=== PATIENT | female | born 1995 | race Caucasian/White ===

== ENCOUNTER 2019-04-24 11:39 | Emergency (ER) | payer OTHER, SELFPAY ==
--- NOTE | 2019-04-24 11:44 | ED_ITS ---
I attest that this documentation has been prepared under the direction and in the presence of Jules Huerta MD. Brianna RamirezKaden 04/24/19;11:51 HPI - General Adult General Chief complaint: Arrhythmia/Palpitations Stated complaint: svt HR over 200 Time Seen by Provider: 04/24/19 11:44 History of Present Illness HPI narrative: A 23 y/o female presents to the ED with c/o high heart rate. Pt states that at 1000 today her heart rate was in the 200's. She notes that she has a PMHx of high heart rate, but has never had medication to fix the heart rate. The high heart rate usually occurs 3-4 times a month. Pt adds that she tried breathing into a bag and drank ice water with no relief. She reports CP that radiates into her lt arm and SOB. Her PCP is Dr. Burt and she does not have a dip tanker. She is not currently on any medications.
[2019-04-24 11:48] VITALS: BP 124/91; PULSE 210; RESP 20; TEMP 36.7; O2SAT 100
[2019-04-24 11:50] VITALS: BP 121/90; PULSE 108; RESP 20; TEMP 36.7; O2SAT 100
--- NOTE | 2019-04-24 11:51 | ECG_ITS ---
Measurements Intervals [place] Rate: 204 P: [place]: 0 QRS: 55 QRSD: 84 T: 10 QT: 210 QTc: 387 Interpretive Statements SUPRAVENTRICULAR TACHYCARDIA NONSPECIFIC ST & T-WAVE ABNORMALITY- DIFFUSE LEADS BASELINE WANDER- II, III, AVF ABNORMAL ECG Electronically Signed On 04-24-2019 13:33:10 DIRECTOR IMAGING by Jarrett Saab D.O.
--- NOTE | 2019-04-24 11:52 | ED.ARRPALP ---
HPI - Arrhythmia/Palpitations General Chief Complaint: Arrhythmia/Palpitations Stated Complaint: svt HR over 200 Time Seen by Provider: 04/24/19 11:44 Source: patient Mode of arrival: ambulatory Limitations: no limitations History of Present Illness HPI narrative: A 23 y/o female presents to the ED with c/o high heart rate. Pt states that at 1000 today her heart rate was in the 200's. She notes that she has a PMHx of SVT, but has never had medication to fix her high heart rate. The high heart rate usually occurs 3-4 times a month. Pt adds that she tried breathing into a bag and drank ice water with no relief. She reports CP that radiates into her lt arm and SOB. Her PCP is Dr. Burt and she does not have a sports administrator. She is not currently on any medications. complaint: rapid heart beat Onset (ago): hour(s) (1.5) Duration: constant Severity: similar to previous episodes Arrhythmia history: SVT Associated symptoms: chest pain (Radiates into lt arm) and shortness of breath Treatments prior to arrival: vagal maneuvers Related Data Home Medications Medication Instructions Recorded Confirmed aripiprazole mg 04/24/19 dextroamphetamine-amphetamine PO 04/24/19 [Adderall XR] insulin lispro [Humalog U-100 04/24/19 Insulin] vortioxetine [Trintellix] mg 04/24/19 Allergies Allergy/AdvReac Type Severity Reaction Status Date / Time No Known Allergies Allergy Verified 04/24/19 11:54 Review of Systems Review of Systems: All systems reviewed & are unremarkable except as noted in HPI and below Cardiovascular: Cardiovascular: Reports chest pain (Radiates into lt arm) and Reports palpitations Respiratory: Respiratory: Reports dyspnea PMFSH Past Medical History Medical History (Updated 04/24/19 @ 12:28 by Jules Huerta MD) SVT (supraventricular tachycardia) Surgical History Surgical History (Updated 04/24/19 @ 12:17 by Brianna Ramirez) No pertinent past surgical history Social History Social History (Updated 04/24/19 @ 12:18 by Brianna Ramirez) Smoking status: Former smoker Exam Const: General: healthy appearing and no acute distress Nutritional Appearance: well nourished HENMT: Mouth: Yes lip normal and Yes moist mucous membranes Eyes: Conjunctivae: conjunctivae normal Pupils: Equal, round and reactive pupils present Resp: Effort & Inspection: normal respiratory effort Auscultation: clear to auscultation bilaterally Cardio: Rate: tachycardic Rhythm: regular rhythm Heart sounds: no murmurs GI: GI Palp: Yes Soft to palpation and No Tenderness to palpation present (GI) Auscultation: normal bowel sounds Back/Spine/Pelvis: Back: other (Full ROM) Skin: General skin exam: normal color, dry skin and other (Warm) Neuro: General: patient oriented x3 (Alert) Speech: normal speech Extrem: General: full ROM Psych: Mental Status: mental status grossly normal Affect: normal affect Course Consultations Consultation #1: Discussed case with PCP, Dr. Burt. They states that if the patient calls their office tomorrow they can provide a sports administrator referral. They agree with starting the patient on low dose Metoprolol. Date: 04/24/19 Time: 12:01 Vital Signs Vital signs: Vital Signs Temperature 36.7 C 04/24/19 11:48 Pulse Rate 210 H 04/24/19 11:48 Respiratory Rate 04/24/19 11:48 Blood Pressure 124/91 H 04/24/19 11:48 Pulse Oximetry 100 04/24/19 11:48 Temperature 36.7 C 04/24/19 11:50 Pulse Rate 100 04/24/19 12:44 Respiratory Rate 04/24/19 11:50 Blood Pressure 121/90 04/24/19 11:50 Pulse Oximetry 100 04/24/19 11:50 Procedures Other Procedure Procedure 1: Other Procedure: Chemical cardioversion She was placed on the grill chef. 6 mg adenosine was pushed rapidly through a proximal IV and flushed She successfully converted to sinus rhythm, but continued to be tachycardic She was then given 5 mg IV metoprolol to help maintain sinus
[2019-04-24] MEDS: SODIUM CHLORIDE 0.9% IV 1,000 ML 999 ML IV CONT (11:57)
[2019-04-24 12:00] VITALS: PULSE 93
[2019-04-24] MEDS: METOPROLOL TARTRATE INJ 5 MG/5 ML VIAL 2.5 MG IV PUSH (12:00)
[2019-04-24] MEDS: ADENOSINE IV SOLN 6 MG/2 ML VIAL IV PUSH (12:00)
--- NOTE | 2019-04-24 12:00 | PC.NURSE ---
Report given to BILLY De La Rosa.
--- NOTE | 2019-04-24 12:00 | ECG_ITS ---
Measurements Intervals [place] Rate: 118 P: 70 MT: 151 QRS: 68 QRSD: 91 T: 35 QT: 272 QTc: 381 Interpretive Statements SINUS TACHYCARDIA ABNORMAL ECG Electronically Signed On 04-24-2019 13:33:26 AVIONICS ELECTRICAL ENGINEER by Jarrett Saab D.O.
--- NOTE | 2019-04-24 12:02 | PC.NURSE ---
EDP in room, VORB for 6mg adenosine rapid IVP. pt educated on process of treatment, verbalized understanding. medication administered. pt hr decreased from 208 bpm to 93 bpm. pt states pain is gone.
[2019-04-24 12:05] LABS: Basophils Percent Auto 0.4 % (0.2-1.2); Eosinophils Absolute Auto 0.1 K/mm3 (0-0.3); Eosinophils Percent Auto 1.2 % (0-4.4); Hematocrit 41.3 % (37.0-47.0); Hemoglobin 13.6 g/dL (12.0-15.0); Immature Granulocyte Absolute 0.02 K/mm3 (0.00-0.031); Immature Granulocyte Percent A 0.2 % (0-0.5); Lymphocytes Absolute Auto 2.51 K/mm3 (0.9-3.2); Lymphocytes Percent Auto 23.4 % (18.3-44.2); Mean Corpuscular HGB Conc 32.9 g/dl (32-36); Mean Corpuscular Hemoglobin 27.6 pg (26-34); Mean Corpuscular Volume 83.8 fl (80-100); Mean Platelet Volume 10.4 fl (7.4-10.4); Monocytes Percent Auto 9.4 % (2.6-8.5); Neutrophils Percent Auto 65.4 % (45.5-73.1); Platelet Count Result 418 k/mm3 (150-375); Red Blood Count 4.93 M/mm3 (4.2-5.4); Red Cell Distribution Width 12.9 % (11.5-14.5); White Blood Count 10.7 K/mm3 (4.5-10.0)
[2019-04-24 12:16] LABS: Blood Urea Nitrogen 12 mg/dL (7-17); Calcium 9.8 mg/dL (8.4-10.2); Carbon Dioxide 25 mmol/L (22-30); Chloride 102 mmol/L (98-107); Estimated CRCL calculation 122 ml/min; Estimated Glomerular Filt Rate > 60; Glucose 94 mg/dL (65-105); Sodium 139 mmol/L (137-145)
[2019-04-24 12:28] LABS: Troponin I < 0.012 ng/mL (0.000-0.034)
[2019-04-24 12:44] VITALS: PULSE 100
[2019-04-24] MEDS: METOPROLOL TARTRATE 12.5 MG TABLET PO (12:44)
[2019-04-24 13:11] VITALS: BP 114/80; PULSE 102; RESP 14; O2SAT 100
--- NOTE | 2019-05-05 19:30 | PC.NURSE ---
LATE ENTRY This note is being entered to document information to the patient's record. The following information was omitted on 04/27/19 , by BILLY Lazo. Pt recieved NS infusion per order and infusion completed as ordered.
== END 2019-04-24 13:14 | disposition home or self-care (01) ==
PROVIDERS: Emergency Provider Emergency Medicine
DX: I47.1 Supraventricular tachycardia (principal); Z87.891 Personal history of nicotine dependence; R94.31 Abnormal electrocardiogram [ECG] [EKG]
CPT/HCPCS: 36415; 80048; 84484; 85025; 92960; 93005; 96361; 96374; 96375; 99285; A9270; J0153; J7030

== ENCOUNTER 2019-11-19 10:49 | Emergency (ER) | payer BC, SELFPAY ==
--- NOTE | 2019-11-19 10:58 | ED.FEMALEGU ---
HPI - Female Genitourinary General Chief complaint: Urogenital-Female Stated complaint: uti Time Seen by Provider: 11/19/19 10:58 Source: patient Mode of arrival: ambulatory Limitations: no limitations History of Present Illness HPI Narrative: PATIENT PRESENTS WITH BURNING WITH URINATION FOR THE PAST 3 DAYS. NO PELVIC, NO ABDOMINAL PAIN, NO VAGINAL DISCHARGE , NO CONCERN FOR STD. PATIENT DOES REPORT SOME ITCHING AND IS CONCERNED THAT SHE MAY HAVE A YEAST INFECTION. PATIENT IS DIABETIC AND DENIES ANY FLANK PAIN AND NO GROSS HEMATURIA. PATIENT REPORTS NORMAL KIDNEY FUNCTION AND NORMAL BLOOD SUGARS FOR PATIENT. MD elicited complaint: dysuria and UTI Related Data Home Medications Medication Instructions Recorded Confirmed aripiprazole mg 04/24/19 dextroamphetamine-amphetamine 20 mg PO DAILY 04/24/19 11/19/19 [Adderall XR] vortioxetine [Trintellix] 20 mg DAILY 04/24/19 11/19/19 cariprazine [Vraylar] 3 mg DAILY 11/19/19 11/19/19 clonazepam 0.5 mg DAILY 11/19/19 11/19/19 insulin aspart U-100 10 unit SUBCUT TID 11/19/19 11/19/19 insulin glargine [Basaglar KwikPen 30 unit/kg SUBCUT DAILY 11/19/19 11/19/19 U-100 Insulin] Allergies Allergy/AdvReac Type Severity Reaction Status Date / Time No Known Allergies Allergy Verified 04/24/19 11:54 Review of Systems Review of Systems: Narrative: CONSTITUTIONAL: Denies fever, chills, or sweats. EYES: Denies visual changes, redness, or discharge. ENT: Denies rhinorrhea, congestion, sore throat, or otalgia. CARDIOVASCULAR: Denies chest pain, palpitations, or edema. RESPIRATORY: Denies cough or dyspnea. GASTROINTESTINAL: Denies abdominal pain, nausea, vomiting, or diarrhea. GENITOURINARY: reports burning with urination and low back pain no gross hematuria SKIN: Denies rash or itching. MUSCULOSKELETAL: Denies back pain, joint pain, or myalgia. NEUROLOGIC: Denies headache, numbness, or weakness. PSYCHIATRIC: Denies anxiety or depression. All systems reviewed & are unremarkable except as noted in HPI and below Constitutional: Constitutional: Reports as per [facility] Past Medical History Medical History (Updated 11/19/19 @ 11:00 by JENNY Gooden) SVT (supraventricular tachycardia) Surgical History Surgical History (Updated 04/24/19 @ 12:17 by Brianna Ramirez) No pertinent past surgical history Social History Social History (Updated 04/24/19 @ 12:18 by Brianna Ramirez) Smoking status: Former smoker Gender identity (if verbalized by the patient): Female Comments At time of signature, agree with nursing past medical, surgical, social and family history. There is no relevant family history pertinent to the presenting complaint Exam Narrative: Exam Narrative: GENERAL: Well-appearing, well-nourished, and in no acute distress. HEAD: Normocephalic, atraumatic. EYES: PERRLA and EOMI. ENT: Nares clear, no rhinorrhea or epistaxis. Mucous membranes moist. NECK: Supple. CHEST: Clear to auscultation. No respiratory distress. HEART: Regular rate and rhythm. No murmur heard. Normal peripheral pulses. ABDOMEN: Soft, nontender, nondistended, normal active bowel sounds. EXTREMITIES: Normal range of motion. No edema. SKIN: Warm, dry, no rash. NEURO: No focal deficits. Alert and oriented x3. Jerry Coma Scale Eye Opening: Spontaneous 4 Jerry Coma Scale Motor: Obeys Commands 6 [place] Coma Scale Verbal: Oriented 5 Jerry Coma Scale Total 15 Course Vital Signs Vital signs: Vital Signs Temperature 37.0 C 11/19/19 11:03 Pulse Rate 86 11/19/19 11:03 Respiratory Rate 11/19/19 11:03 Blood Pressure 130/79 11/19/19 11:03 Pulse Oximetry 100 11/19/19 11:03 Temperature 37.0 C 11/19/19 11:03 Pulse Rate 86 11/19/19 11:03 Respiratory Rate 11/19/19 11:03 Blood Pressure 130/79 11/19/19 11:03 Pulse Oximetry 100 11/19/19 11:03 Please RENETTA schedule a followup visit with your personal physician for further evaluation and treatment. Inc
[2019-11-19 11:03] VITALS: BP 130/79; PULSE 86; RESP 20; TEMP 37; O2SAT 100
== END 2019-11-19 11:11 | disposition home or self-care (01) ==
PROVIDERS: Emergency Provider Nurse Practitioner Family; PCP Internal Medicine
DX: N39.0 Urinary tract infection, site not specified (principal); Z87.891 Personal history of nicotine dependence; E11.9 Type 2 diabetes mellitus without complications; F41.9 Anxiety disorder, unspecified
CPT/HCPCS: 81003; 87077; 87086; 87088; 87186; 99213; G0463

== ENCOUNTER 2019-11-23 13:59 | Emergency (ER) | payer BC, SELFPAY ==
--- NOTE | ~2019-11-23 | CT_ITS ---
EXAMINATION: CT abdomen pelvis w con DATE: 11/23/2019 16:28 INDICATION: Left flank pain. Right-sided abdominal pain. TECHNIQUE: Computed tomography (CT) of the abdomen and pelvis was performed with 100 mL Omnipaque 350 intravenous contrast. Automated exposure control and iterative reconstruction technique were employe d. The dose-length product was 469.95 mGy-cm. COMPARISON: CT abdomen and pelvis 01/12/2019 FINDINGS: The visualized portions of the lung bases are clear without pneumonia or pleural effusion. The heart size is normal. No pericardial effusion. The liver, gallbladder, spleen, pancreas, and adre nal glands are normal. There is cortical thinning of the kidneys. There are no dilated loops of bowel . The appendix is normal. There are no pathologically enlarged lymph nodes. There is trace pelvic asc ites. There is mild lower thoracic spondylosis. IMPRESSION: 1. No etiology for the patient's symptoms. Reviewed, dictated and finalized at location B.
[2019-11-23 14:01] VITALS: BP 136/84; PULSE 107; RESP 18; TEMP 36.9; O2SAT 99
[2019-11-23 14:13] LABS: Basophils Percent Auto 0.4 % (0.2-1.2); Eosinophils Absolute Auto 0.2 K/mm3 (0-0.3); Eosinophils Percent Auto 2.2 % (0-4.4); Hematocrit 38.4 % (37.0-47.0); Hemoglobin 13.2 g/dL (12.0-15.0); Immature Granulocyte Absolute 0.01 K/mm3 (0.00-0.031); Immature Granulocyte Percent A 0.1 % (0-0.5); Lymphocytes Absolute Auto 1.39 K/mm3 (0.9-3.2); Lymphocytes Percent Auto 20.1 % (18.3-44.2); Mean Corpuscular HGB Conc 34.4 g/dl (32-36); Mean Corpuscular Hemoglobin 28.5 pg (26-34); Mean Corpuscular Volume 82.9 fl (80-100); Mean Platelet Volume 9.8 fl (7.4-10.4); Monocytes Absolute Auto 0.5 K/mm3 (0.1-0.6); Monocytes Percent Auto 6.8 % (2.6-8.5); Neutrophils Absolute Auto 4.9 K/mm3 (1.3-6.7); Neutrophils Percent Auto 70.4 % (45.5-73.1); Platelet Count Result 314 k/mm3 (150-375); Red Blood Count 4.63 M/mm3 (4.2-5.4); Red Cell Distribution Width 12.7 % (11.5-14.5); White Blood Count 6.9 K/mm3 (4.5-10.0)
[2019-11-23 14:23] LABS: Add Urine Microscopic? YES; Appearance Urine Clear (Clear); Bacteria Urine Trace /hpf; Bilirubin Urine Negative (Negative); Blood Urine Negative (Negative); Color Urine Yellow (Yellow); Glucose Urine UA Negative (Negative); Ketones Urine Negative (Negative); Leukocyte Esterase Ur Trace LEU/UL (Negative); Mucus Urine Rare /lpf; Nitrate Urine Negative (Negative); Protein Urine Negative (Negative); RBC Urine 0-2 /hpf (0-2); Specific Grav Ur 1.018 (1.001-1.035); Squamous Epithelial Cell Urine Moderate /hpf (Few); Urobilinogen Urine Negative mg/dL (<2.0); WBC Urine 0-3 /hpf
[2019-11-23 14:33] LABS: Anion Gap 8 mmol/L (8-16); Blood Urea Nitrogen 13 mg/dL (7-17); Calcium 9.1 mg/dL (8.4-10.2); Carbon Dioxide 23 mmol/L (22-30); Chloride 104 mmol/L (98-107); Estimated CRCL calculation 121 ml/min; Estimated Glomerular Filt Rate > 60; Glucose 173 mg/dL (65-105); Potassium 4.1 mmol/L (3.4-5.0); Sodium 135 mmol/L (137-145)
--- NOTE | 2019-11-23 16:01 | ED.ABDPAIN ---
HPI - Abdominal Pain General Chief Complaint: Abdominal Pain Stated Complaint: right flank pain Time Seen by Provider: 11/23/19 15:28 Source: patient History of Present Illness HPI narrative: 24-year-old female presents emergency department for left lower back pain that radiates around to her abdomen since November 11. Patient states he has never had this in the past before. She was diagnosed with a urinary tract infection back on the , and given prescription for Keflex. she states the pain is just not going away. She has not taken anything today for the pain. She still notes dysuria. No vaginal bleeding or discharge. She states she threw up today. No chest pain or shortness of breath. Related Data Home Medications Medication Instructions Recorded Confirmed dextroamphetamine-amphetamine 20 mg PO DAILY 04/24/19 11/19/19 [Adderall XR] vortioxetine [Trintellix] 20 mg DAILY 04/24/19 11/19/19 cariprazine [Vraylar] 3 mg DAILY 11/19/19 11/19/19 clonazepam 0.5 mg DAILY 11/19/19 11/19/19 insulin aspart U-100 10 unit SUBCUT TID 11/19/19 11/19/19 insulin glargine [Basaglar KwikPen 30 unit/kg SUBCUT DAILY 11/19/19 11/19/19 U-100 Insulin] Allergies Allergy/AdvReac Type Severity Reaction Status Date / Time No Known Allergies Allergy Verified 11/23/19 15:31 Review of Systems Review of Systems: Narrative: CONSTITUTIONAL: Denies fever, chills, or sweats. EYES: Denies visual changes, redness, or discharge. ENT: Denies rhinorrhea, congestion, sore throat, or otalgia. CARDIOVASCULAR: Denies chest pain, palpitations, or edema. RESPIRATORY: Denies cough or dyspnea. GASTROINTESTINAL: Denies nausea, or diarrhea. Positive for vomiting today. Left flank pain GENITOURINARY: Denies dysuria or hematuria. SKIN: Denies rash or itching. MUSCULOSKELETAL: Denies joint pain, or myalgia. Left lower back pain NEUROLOGIC: Denies headache, numbness, dizziness, or weakness. PSYCHIATRIC: Denies anxiety or depression. [facility] Past Medical History Medical History SVT (supraventricular tachycardia) Surgical History Surgical History No pertinent past surgical history Social History Social History Smoking status: Former smoker Gender identity (if verbalized by the patient): Female Exam Narrative: Exam Narrative: GENERAL: Well-appearing, well-nourished, and in no acute distress. HEAD: Normocephalic, atraumatic. EYES: PERRLA and EOMI. ENT: Nares clear, no rhinorrhea or epistaxis. Mucous membranes moist. NECK: Supple. CHEST: Clear to auscultation. No respiratory distress. HEART: Regular rate and rhythm. No murmur heard. Normal peripheral pulses. ABDOMEN: Mild left-sided abdominal TTP. EXTREMITIES: Normal range of motion. No edema. SKIN: Warm, dry, no rash. NEURO: No focal deficits. Alert and oriented x3. PSYCH: Normal mood and affect. Back/Spine/Pelvis: Other: Left low back TTP Course Reevaluation(s) Reevaluation #1: 1800 -reevaluated patient, pain improved. Patient does state pain is worse with movement. 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 At this time, CT scan unremarkable. Patient states her primary care doctor called her in a prescription for Cipro. Counseled patient to discontinue taking Keflex and start Cipro. Pain likely could be musculoskeletal. Can take Tylenol or Motrin/ibuprofen as needed for pain. Vital Signs Vital signs: Vital Signs Temperature 36.9 C 11/23/19 14:01 Pulse Rate 107 H 11/23/19 14:01 Respiratory Rate 18 11/23/19 14:01 Blood Pressure 136/84 11/23/19 14:01 Pulse Oximetry 99 11/23/19 14:01 Temperature 36.9 C 11/23/19 14:01 Pulse Rate 76 11/23/19 16:57 Respiratory Rate 18 11/23/19 16:57 Blood Pressure 115/93 H 11/23/19 16:57 Pulse Oximetry 100 11/23/19 16:57 [facility] - Ab
[2019-11-23 16:24] LABS: Alanine Aminotransferase 13 U/L (4-35); Albumin Level 4.5 g/dL (3.5-5.1); Alkaline Phosphatase 88 U/L (38-126); Aspartate Amino Transferase 32 U/L (14-36); Bilirubin,Total 0.3 mg/dL (0.2-1.3); Lipase 33 U/L (23-300)
--- NOTE | 2019-11-23 16:27 | PC.NURSE ---
called lab to add on
[2019-11-23] MEDS: ONDANSETRON INJ 4 MG/2 ML VIAL IV PUSH (16:54)
[2019-11-23] MEDS: KETOROLAC 15 MG/ML VIAL (*BKC) IV PUSH (16:54)
[2019-11-23 16:57] VITALS: BP 115/93; PULSE 76; RESP 18; O2SAT 100
== END 2019-11-23 18:30 | disposition home or self-care (01) ==
PROVIDERS: Emergency Medicine Emergency Medical Services; Emergency Provider Emergency Medicine
DX: N39.0 Urinary tract infection, site not specified (principal); M79.10 Myalgia, unspecified site
CPT/HCPCS: 36415; 74177; 80048; 80076; 81001; 81025; 83690; 85025; 96374; 96375; 99284; J1885; J2405; Q9967

== ENCOUNTER 2020-05-16 13:21 | Emergency (ER) | payer OTHER, SELFPAY ==
[2020-05-16] VITALS (16 sets, daily range): BP systolic 99–120; BP diastolic 66–77; PULSE 84–104; RESP 12–21; TEMP 36.6; O2SAT 96–99
--- NOTE | ~2020-05-16 | XR_ITS ---
EXAMINATION: XR chest 2V DATE: 05/16/2020 14:27 INDICATION: Chest pain TECHNIQUE: PA and lateral views of the chest are obtained. COMPARISON: None available FINDINGS: The lungs are free of acute opacities. There is no pleural effusion or pneumothorax. The ca rdiomediastinal silhouette is normal. The visualized bones and soft tissues are unremarkable. IMPRESSION: 1. No acute cardiopulmonary abnormality. Reviewed, dictated and finalized at location A. ORT TOWER CONTROLLER
--- NOTE | 2020-05-16 13:37 | ECG_ITS ---
Measurements Intervals [place] Rate: 93 P: 71 CO: 130 QRS: 73 QRSD: 93 T: 40 QT: 318 QTc: 397 Interpretive Statements SINUS RHYTHM POSSIBLE LEFT ATRIAL ENLARGEMENT INCOMPLETE RIGHT BUNDLE BRANCH BLOCK BASELINE ARTIFACT- I, II, AVR, AVL BORDERLINE ECG Electronically Signed On 05-16-2020 14:03:30 ELEPHANT KEEPER by Jarrett Saab D.O.
[2020-05-16] MEDS: KETOROLAC 30 MG/ML VIAL (*BKC) IV PUSH (14:11)
[2020-05-16 14:14] LABS: Basophils Percent Auto 0.3 % (0.2-1.2); Eosinophils Absolute Auto 0.1 K/mm3 (0-0.3); Eosinophils Percent Auto 1.4 % (0-4.4); Hematocrit 36.1 % (37.0-47.0); Hemoglobin 12.4 g/dL (12.0-15.0); Immature Granulocyte Absolute 0.02 K/mm3 (0.00-0.031); Immature Granulocyte Percent A 0.3 % (0-0.5); Lymphocytes Absolute Auto 1.52 K/mm3 (0.9-3.2); Lymphocytes Percent Auto 21.8 % (18.3-44.2); Mean Corpuscular HGB Conc 34.3 g/dl (32-36); Mean Corpuscular Hemoglobin 28.6 pg (26-34); Mean Corpuscular Volume 83.4 fl (80-100); Mean Platelet Volume 9.8 fl (7.4-10.4); Monocytes Absolute Auto 0.5 K/mm3 (0.1-0.6); Monocytes Percent Auto 6.7 % (2.6-8.5); Neutrophils Absolute Auto 4.8 K/mm3 (1.3-6.7); Neutrophils Percent Auto 69.5 % (45.5-73.1); Platelet Count Result 285 k/mm3 (150-375); Red Blood Count 4.33 M/mm3 (4.2-5.4); Red Cell Distribution Width 12.5 % (11.5-14.5)
[2020-05-16 14:26] LABS: Anion Gap 7 mmol/L (8-16); Blood Urea Nitrogen 9 mg/dL (7-17); Calcium 9.2 mg/dL (8.4-10.2); Carbon Dioxide 24 mmol/L (22-30); Chloride 104 mmol/L (98-107); Estimated CRCL calculation 122 ml/min; Estimated Glomerular Filt Rate > 60; Glucose 231 mg/dL (65-105); Potassium 4.1 mmol/L (3.4-5.0); Sodium 135 mmol/L (137-145)
[2020-05-16 14:38] LABS: Troponin I < 0.012 ng/mL (0.000-0.034)
[2020-05-16 15:01] LABS: D Dimer < 0.22 ug/mL (<0.48)
--- NOTE | 2020-05-16 15:30 | ED.CHESTPAIN ---
HPI - Chest Pain General Chief Complaint: Chest Pain Stated Complaint: heart racing Time Seen by Provider: 05/16/20 13:30 History of Present Illness HPI narrative: Patient is a 24-year-old female who presents ER with central chest discomfort. Aching and nonradiating. Began prior to doing some virtual therapy for chronic mental health issues. Cannot describe any aggravating or alleviating factors. No runny nose/sore throat/productive cough. No shortness of breath. Not affected by exertion. Patient reports also for last couple of months she has been having episodes where she will have rapid loss of consciousness and she falls to the ground. She is currently being worked up by her PCP for this. This did not occur today. Patient also reports history of SVT. She has been noticing her heart rate has been around 100 bpm which has her concerned. She is not on beta-blockers. Related Data Home Medications Medication Instructions Recorded Confirmed dextroamphetamine-amphetamine 20 mg PO DAILY 04/24/19 11/19/19 [Adderall XR] vortioxetine [Trintellix] 20 mg DAILY 04/24/19 11/19/19 cariprazine [Vraylar] 3 mg DAILY 11/19/19 11/19/19 clonazepam 0.5 mg DAILY 11/19/19 11/19/19 insulin aspart U-100 10 unit SUBCUT TID 11/19/19 11/19/19 insulin glargine [Basaglar KwikPen 30 unit/kg SUBCUT DAILY 11/19/19 11/19/19 U-100 Insulin] Allergies Allergy/AdvReac Type Severity Reaction Status Date / Time No Known Allergies Allergy Verified 11/23/19 15:31 Review of Systems Review of Systems: All systems reviewed & are unremarkable except as noted in HPI and below Constitutional: Constitutional: Denies chills, Denies fever(s) and Denies weakness ENT: Denies nasal congestion and Denies sore throat Cardiovascular: Cardiovascular: Reports chest pain, Reports rapid heart rate and Denies radiating jaw, neck or arm pain Respiratory: Respiratory: Denies cough, Denies dyspnea and Denies wheezing Gastrointestinal: Gastrointestinal: Denies abdominal pain, Denies nausea and Denies vomiting [facility] Past Medical History Medical History (Updated 05/16/20 @ 15:45 by Agustín Osuna MD) Bipolar 2 disorder SVT (supraventricular tachycardia) Surgical History Surgical History No pertinent past surgical history Social History Social History Smoking status: Former smoker Gender identity (if verbalized by the patient): Female Exam Narrative: Exam Narrative: GENERAL: Well-appearing, well-nourished, and in no acute distress. HEAD: Normocephalic, atraumatic. EYES: PERRL and EOMI. CHEST: Clear to auscultation. No respiratory distress. HEART: Regular rate and rhythm. Normal peripheral pulses. ABDOMEN: Soft, nontender, nondistended. EXTREMITIES: Normal range of motion. No edema. SKIN: Warm, dry, no rash. NEURO: Alert and oriented x3. PSYCH: Normal mood and affect. Course Course Emergency Course: Patient informed of results. Discharge home and recommend follow-up with PCP. Vital Signs Vital signs: Vital Signs Pulse Rate 94 05/16/20 13:37 Respiratory Rate 13 05/16/20 13:37 Pulse Oximetry 99 05/16/20 13:37 Temperature 97.9 F 05/16/20 13:49 Pulse Rate 88 05/16/20 15:01 Respiratory Rate 18 05/16/20 15:01 Blood Pressure 120/77 05/16/20 15:01 Pulse Oximetry 96 05/16/20 15:01 MDM - Chest Pain Lab Data Result diagrams: 05/16/20 14:08 05/16/20 14:08 Labs: Lab Results 05/16/20 05/16/20 05/16/20 Range/Units 14:08 14:08 14:37 WBC 7.0 (4.5-10.0) K/mm3 RBC 4.33 (4.2-5.4) M/mm3 Hgb 12.4 (12.0-15.0) g/dL Hct 36.1 L (37.0-47.0) % MCV 83.4 (80-100) fl MCH 28.6 (26-34) pg MCHC 34.3 (32-36) g/dl RDW 12.5 (11.5-14.5) % Plt Count 285 (150-375) k/mm3 MPV 9.8 (7.4-10.4) fl Immature Gran % (Auto) 0.3 (0-0.5) % Neut %
== END 2020-05-16 15:59 | disposition home or self-care (01) ==
PROVIDERS: Emergency Provider Emergency Medicine
DX: R07.89 Other chest pain (principal); F31.81 Bipolar II disorder; Z87.891 Personal history of nicotine dependence; I45.10 Unspecified right bundle-branch block; R94.31 Abnormal electrocardiogram [ECG] [EKG]; Z79.4 Long term (current) use of insulin
CPT/HCPCS: 36415; 71046; 80048; 84484; 85025; 85380; 93005; 96374; 99284; J1885

== ENCOUNTER 2020-11-16 10:35 | Emergency (ER) | payer BC, SELFPAY ==
[2020-11-16] VITALS (19 sets, daily range): BP systolic 104–115; BP diastolic 65–74; PULSE 72–87; RESP 15–21; TEMP 36.6; O2SAT 99–100
[2020-11-16 11:56] LABS: Basophils Percent Auto 0.5 % (0.2-1.2); Eosinophils Absolute Auto 0.1 K/mm3 (0-0.3); Eosinophils Percent Auto 1.5 % (0-4.4); Hematocrit 37.1 % (37.0-47.0); Hemoglobin 12.1 g/dL (12.0-15.0); Immature Granulocyte Absolute 0.01 K/mm3 (0.00-0.031); Immature Granulocyte Percent A 0.2 % (0-0.5); Lymphocytes Absolute Auto 1.22 K/mm3 (0.9-3.2); Lymphocytes Percent Auto 20.1 % (18.3-44.2); Mean Corpuscular HGB Conc 32.6 g/dl (32-36); Mean Corpuscular Hemoglobin 28.3 pg (26-34); Mean Corpuscular Volume 86.7 fl (80-100); Mean Platelet Volume 9.3 fl (7.4-10.4); Monocytes Absolute Auto 0.3 K/mm3 (0.1-0.6); Monocytes Percent Auto 4.8 % (2.6-8.5); Neutrophils Absolute Auto 4.4 K/mm3 (1.3-6.7); Neutrophils Percent Auto 72.9 % (45.5-73.1); Platelet Count Result 312 k/mm3 (150-375); Red Blood Count 4.28 M/mm3 (4.2-5.4); Red Cell Distribution Width 12.9 % (11.5-14.5); White Blood Count 6.1 K/mm3 (4.5-10.0)
[2020-11-16 12:05] LABS: Add Urine Microscopic? YES; Appearance Urine Clear (Clear); Bilirubin Urine Negative (Negative); Blood Urine Negative (Negative); Color Urine Yellow (Yellow); Glucose Urine UA 3+ mg/dL (Negative); Ketones Urine 1+ mg/dL (Negative); Leukocyte Esterase Ur Negative LEU/UL (Negative); Mucus Urine Rare /lpf; Nitrate Urine Negative (Negative); Protein Urine Negative (Negative); RBC Urine 0-2 /hpf (0-2); Specific Grav Ur 1.025 (1.001-1.035); Urobilinogen Urine Negative mg/dL (<2.0); WBC Urine 0-3 /hpf
[2020-11-16 12:11] LABS: Alanine Aminotransferase 12 U/L (4-35); Albumin Level 4.5 g/dL (3.5-5.1); Alkaline Phosphatase 82 U/L (38-126); Anion Gap 9 mmol/L (8-16); Aspartate Amino Transferase 16 U/L (14-36); Bilirubin,Total 0.4 mg/dL (0.2-1.3); Blood Urea Nitrogen 8 mg/dL (7-17); Calcium 9.5 mg/dL (8.4-10.2); Carbon Dioxide 25 mmol/L (22-30); Chloride 101 mmol/L (98-107); Estimated CRCL calculation 104 ml/min; Estimated Glomerular Filt Rate > 60; Glucose 302 mg/dL (65-110); Magnesium 1.5 mg/dL (1.6-2.3); Phosphorus 2.9 mg/dL (2.5-4.5); Potassium 4.6 mmol/L (3.4-5.0); Sodium 135 mmol/L (137-145)
[2020-11-16 12:14] LABS: Beta-Hydroxybutyrate/Acetoacetate 0.74 mmol/L (0.02-0.27)
--- NOTE | 2020-11-16 13:29 | ED.RECABL ---
HPI - Recheck/Abnormal Lab/Rx General Chief Complaint: Recheck/Abnormal Lab/Rx Stated Complaint: high blood sugar Time Seen by Provider: 11/16/20 13:29 Source: patient Mode of arrival: ambulatory Limitations: no limitations History of Present Illness HPI narrative: Patient is a 25-year-old type I diabetic who presents for evaluation of elevated blood glucose levels, nausea and vomiting. Patient reports she has felt unwell over the past 48 hours. She has had difficult to control blood glucose levels despite discontinuing her pump and dosing according to glucose levels with subcutaneous insulin. Patient reports nausea as well as vomiting. She denies any fever, chills, cough or shortness of breath. She reports mild abdominal cramping which is currently absent. She denies dysuria or hematuria. She does have a history of DKA in the past. Her campaign associate is Dr. Pitts at [facility]. Pt denies diarrhea or constipation. No recent travel. Related Data Home Medications Medication Instructions Recorded Confirmed dextroamphetamine-amphetamine 20 mg PO DAILY 04/24/19 11/19/19 [Adderall XR] vortioxetine [Trintellix] 20 mg DAILY 04/24/19 11/19/19 cariprazine [Vraylar] 3 mg DAILY 11/19/19 11/19/19 clonazepam 0.5 mg DAILY 11/19/19 11/19/19 insulin aspart U-100 10 unit SUBCUT TID 11/19/19 11/19/19 insulin glargine [Basaglar KwikPen 30 unit/kg SUBCUT DAILY 11/19/19 11/19/19 U-100 Insulin] Allergies Allergy/AdvReac Type Severity Reaction Status Date / Time No Known Allergies Allergy Verified 11/23/19 15:31 Review of Systems Review of Systems: CONSTITUTIONAL: Denies fever, chills, or sweats. EYES: Denies visual changes, redness, or discharge. ENT: Denies rhinorrhea, congestion, sore throat, or otalgia. CARDIOVASCULAR: Denies chest pain, palpitations, or edema. RESPIRATORY: Denies cough or dyspnea. GASTROINTESTINAL: Reports mild abdominal cramping, nausea, vomiting without diarrhea GENITOURINARY: Denies dysuria or hematuria. SKIN: Denies rash or itching. MUSCULOSKELETAL: Denies back pain, joint pain, or myalgia. NEUROLOGIC: Denies headache, numbness, or weakness. [facility] Past Medical History Medical History Bipolar 2 disorder SVT (supraventricular tachycardia) Surgical History Surgical History No pertinent past surgical history Social History Social History Smoking status: Former smoker Gender identity (if verbalized by the patient): Female Exam Narrative: GENERAL: Awake, alert, conversant HEAD: Normocephalic, atraumatic. EYES: PERRLA and EOMI. ENT: Nares clear, no rhinorrhea or epistaxis. Mucous membranes moist. NECK: Supple. CHEST: No respiratory distress, breathing even and non labored HEART: Regular rate, sinus rhythm ABDOMEN:Non distended, non tender in all four quadrants EXTREMITIES: Normal range of motion. No edema. SKIN: Warm, dry, no rash. NEURO:No focal deficits. Alert and oriented x3 Course Vital Signs Vital signs: Vital Signs Temperature 36.6 C 11/16/20 11:33 Pulse Rate 79 11/16/20 11:33 Respiratory Rate 16 11/16/20 11:33 Blood Pressure 115/73 11/16/20 11:33 Pulse Oximetry 100 11/16/20 11:33 Temperature 36.6 C 11/16/20 11:33 Pulse Rate 84 11/16/20 15:32 Respiratory Rate 17 11/16/20 15:32 Blood Pressure 115/66 11/16/20 15:16 Pulse Oximetry 100 11/16/20 15:16 MDM - Recheck/Abnormal Lab/Rx MDM Narrative Medical decision making narrative: Patient presenting for evaluation of elevated glucose levels, nausea and vomiting. At the time of assessment, ABCs are intact and vital signs are stable. Patient is not tachycardic or hypotensive. She is afebrile. No reported symptoms that are concerning for infection. On abdominal palpation she is nontender throughout. IV access obtained an
[2020-11-16] MEDS: ONDANSETRON INJ 4 MG/2 ML VIAL IV PUSH (14:22)
[2020-11-16] MEDS: SODIUM CHLORIDE 0.9% IV 1,000 ML 999 ML IV CONT (14:22)
[2020-11-16 15:33] LABS: Glucose Point of Care 200 mg/dl (65-105)
== END 2020-11-16 16:16 | disposition home or self-care (01) ==
PROVIDERS: Emergency Medicine; Emergency Provider Emergency Medicine
DX: R11.2 Nausea with vomiting, unspecified (principal); E10.9 Type 1 diabetes mellitus without complications; F31.81 Bipolar II disorder; I47.1 Supraventricular tachycardia; Z87.891 Personal history of nicotine dependence; Z79.4 Long term (current) use of insulin
CPT/HCPCS: 36415; 80053; 81001; 81025; 82010; 82948; 83735; 84100; 85025; 96361; 96374; 99284; J2405; J7030

== ENCOUNTER 2021-04-23 10:31 | Emergency (ER) | payer SELFPAY ==
--- NOTE | 2021-04-23 10:48 | ED.NAVMDI ---
HPI - Nausea/Vomiting/Diarrhea General Chief complaint: Upper Respiratory Infection Stated complaint: Vomiting,Diarrhea,Fever Time Seen by Provider: 04/23/21 10:49 Source: patient and RN notes reviewed History of Present Illness HPI Narrative: Patient is a 25-year-old female who presents the urgent care with complaints of vomiting, diarrhea and fever. Patient started having symptoms on Thursday and she is 6 weeks . Patient has taken two Covid test which were negative. Patient is Covid vaccinated. States that she has been taking Tylenol for the fevers which have improved. States that she has been able to keep down fluids. Denies of any urinary complaints, upper respiratory complaints, cough, abdominal pain. Patient states that she has had four loose bowel movements this morning and vomited approximately 2 hours ago. No other acute complaints. No acute distress noted. Patient aware of the plan of care. Some parts of this dictation were generated by voice recognition software and may contain typographical and/or grammatical inaccuracies. Related Data Home Medications Medication Instructions Recorded Confirmed dextroamphetamine-amphetamine 20 mg PO DAILY 04/24/19 11/19/19 [Adderall XR] vortioxetine [Trintellix] 20 mg DAILY 04/24/19 11/19/19 clonazepam 0.5 mg DAILY 11/19/19 11/19/19 insulin aspart U-100 10 unit SUBCUT TID 11/19/19 11/19/19 insulin glargine [Basaglar KwikPen 30 unit/kg SUBCUT DAILY 11/19/19 11/19/19 U-100 Insulin] bupropion HCl 150 mg PO DAILY 04/23/21 04/23/21 duloxetine 60 mg PO DAILY 04/23/21 04/23/21 flash glucose sensor [FreeStyle 04/23/21 04/23/21 Adelfo 2 Sensor] glucagon [Glucagon Emergency Kit 1 mg IM PRN PRN 04/23/21 04/23/21 (human)] lamotrigine 100 mg PO DAILY 04/23/21 04/23/21 sertraline mg 04/23/21 Allergies Allergy/AdvReac Type Severity Reaction Status Date / Time No Known Allergies Allergy Verified 04/23/21 11:12 Review of Systems Review of Systems: CONSTITUTIONAL: Reports a fever EYES: Denies visual changes, redness, or discharge. ENT: Denies rhinorrhea, congestion, sore throat, or otalgia. CARDIOVASCULAR: Denies chest pain, palpitations, or edema. RESPIRATORY: Denies cough or dyspnea. GASTROINTESTINAL: Reports of nausea, vomiting and diarrhea without abdominal pain GENITOURINARY: Denies dysuria or hematuria. SKIN: Denies rash or itching. MUSCULOSKELETAL: Denies back pain, joint pain. Reports body aches NEUROLOGIC: Denies headache, numbness, or weakness. All other systems reviewed are negative, except as documented in HPI. [facility] Past Medical History Medical History Bipolar 2 disorder SVT (supraventricular tachycardia) Surgical History Surgical History No pertinent past surgical history Social History Social History Smoking status: Former smoker Gender identity (if verbalized by the patient): Female Comments At the time of my signature, I reviewed and agree with the nursing past medical, surgical, social, and family history. There is no relevant family history pertinent to the patient complaint. Exam Narrative: GENERAL: This is a well-nourished, well-developed patient, in no apparent distress. HEAD: normocephalic, atraumatic. EYES: PERRL. Sclera clear/white. Vision is grossly intact. EARS: External ears normal, auditory canals clear and without drainage, TMs normal without perforation. Hearing grossly intact. NOSE: External nose normal with no obvious nasal discharge, nares without redness, no rhinorrhea. THROAT: Mucous membranes moist; moderate postnasal drainage NECK: Neck supple CARDIOVASCULAR: Regular rate and rhythm without murmurs, gallops, or rubs. RESPIRATORY: Clear to auscultation. Breath sounds equal bilaterally. No wheezes, rales, or rhonchi. GASTROINTESTINAL: Abdomen soft, mild lo
[2021-04-23 11:04] VITALS: BP 123/79; PULSE 91; RESP 16; TEMP 37.1; O2SAT 100
== END 2021-04-23 11:52 | disposition home or self-care (01) ==
PROVIDERS: Emergency Provider Nurse Practitioner Family; PCP Internal Medicine
DX: O21.9 Vomiting of pregnancy, unspecified (principal); Z3A.01 Less than 8 weeks gestation of pregnancy; O90.89 Other complications of the puerperium, not elsewhere classified; R19.7 Diarrhea, unspecified; O99.341 Other mental disorders complicating pregnancy, first trimester; F31.9 Bipolar disorder, unspecified; Z87.891 Personal history of nicotine dependence
CPT/HCPCS: 81003; 87804; 99213; G0463

== ENCOUNTER 2021-07-26 10:13 | Emergency (ER) | payer OTHER, SELFPAY ==
[2021-07-26 10:49] VITALS: BP 134/78; PULSE 104; RESP 18; TEMP 36.8; O2SAT 100
[2021-07-26 11:12] LABS: Glucose Point of Care 226 mg/dl (65-105)
--- NOTE | 2021-07-26 11:18 | ED.URI ---
HPI - URI/Sore Throat General Chief Complaint: Upper Respiratory Infection Stated Complaint: sorethroat Time Seen by Provider: 07/26/21 10:38 Source: patient Mode of arrival: ambulatory Limitations: no limitations History of Present Illness HPI Narrative: 25-year-old female presents to [facility] with complaints of chills and sore throat since last night. Patient has not tried taking any medications for her symptoms. Patient reports that she is currently 20 weeks with twins. Patient reports that her blood sugars are also elevated. Patient reports that her blood sugar was 122 this morning. Patient reports that her cis coordinator and her high risk maternal- physician is aware of her elevated blood sugar readings and suggest that she come here today to have a strep test completed. Patient denies vaginal bleeding, abdominal cramping, fever, body aches, cough, shortness of breath or wheezing. MD elicited complaint: sore throat Onset (ago): hour(s) (12) Able to tolerate fluids by mouth: Yes Exacerbating factors: nothing Relieving factors: nothing Associated symptoms: chills Treatments prior to arrival: none Related Data Home Medications Medication Instructions Recorded Confirmed dextroamphetamine-amphetamine 20 mg PO DAILY 04/24/19 07/26/21 [Adderall XR] clonazepam 0.5 mg DAILY 11/19/19 07/26/21 bupropion HCl 150 mg PO DAILY 04/23/21 07/26/21 duloxetine 60 mg PO DAILY 04/23/21 07/26/21 lamotrigine 100 mg PO DAILY 04/23/21 07/26/21 insulin lispro 100 unit DIRECTED 07/26/21 07/26/21 Allergies Allergy/AdvReac Type Severity Reaction Status Date / Time No Known Allergies Allergy Verified 07/26/21 11:16 Review of Systems Constitutional: Constitutional: Reports chills, Denies fatigue, Denies fever(s) and Denies weakness ENT: Denies dysphagia, Denies dizziness, Denies nasal congestion and Reports sore throat Cardiovascular: Cardiovascular: Denies chest pain Respiratory: Respiratory: Denies cough, Denies dyspnea and Denies wheezing Gastrointestinal: Gastrointestinal: Denies abdominal pain, Denies diarrhea, Denies nausea and Denies vomiting Integumentary/Breasts: Skin/Breast: Denies rash Neurologic: Denies dizziness PMFSH Past Medical History Medical History Bipolar 2 disorder SVT (supraventricular tachycardia) Surgical History Surgical History No pertinent past surgical history Social History Social History Smoking status: Former smoker Gender identity (if verbalized by the patient): Female Comments At time of signature, I agree with nursing past medical, surgical, social and family history. There is no relevant family history pertinent to the presenting complaint. Exam Const: General: no acute distress Nutritional Appearance: well nourished Orientation/consciousness: patient oriented x3 HENMT: Ears: external ears normal and TM's normal bilaterally General nose exam: Normal nares present Face and sinus: normal facial exam Mouth: Yes moist mucous membranes Teeth and gingiva: dentition normal Throat: uvula midline Other: Erythema noted to posterior pharynx. Tonsils are not enlarged and no exudate is noted. Neck: Neck: normal visual inspection Resp: Effort & Inspection: normal respiratory effort, not labored and not tachypneic Auscultation: clear to auscultation bilaterally Cardio: Rate: regular rate Rhythm: regular rhythm Skin: General skin exam: normal color Rashes: no rashes Wounds: no wounds Neuro: General: patient oriented x3 and moves all extremities Psych: Appearance: grossly normal Mental Status: mental status grossly normal Affect: normal affect Attitude: cooperative Thought content: Yes Normal thought content present Course Course Level of Care: Express Care Visit Vital Signs Vital signs:
== END 2021-07-26 11:27 | disposition home or self-care (01) ==
PROVIDERS: Emergency Provider Nurse Practitioner Family
DX: O26.892 Other specified pregnancy related conditions, second trimester (principal); J02.9 Acute pharyngitis, unspecified
CPT/HCPCS: 82948; 87081; 87880; 99213; G0463

== ENCOUNTER 2021-08-05 09:25 | Emergency (ER) | payer OTHER, SELFPAY ==
[2021-08-05 09:29] VITALS: PULSE 106; RESP 22; TEMP 36.8; O2SAT 100
[2021-08-05 09:32] LABS: Glucose Point of Care 282 mg/dl (65-105)
[2021-08-05 10:43] LABS: Basophils Percent Auto 0.3 % (0.2-1.2); Eosinophils Absolute Auto 0.1 K/mm3 (0-0.3); Eosinophils Percent Auto 0.9 % (0-4.4); Hematocrit 31.6 % (37.0-47.0); Hemoglobin 10.1 g/dL (12.0-15.0); Immature Granulocyte Absolute 0.07 K/mm3 (0.00-0.031); Immature Granulocyte Percent A 0.6 % (0-0.5); Lymphocytes Absolute Auto 1.49 K/mm3 (0.9-3.2); Lymphocytes Percent Auto 12.8 % (18.3-44.2); Mean Corpuscular Hemoglobin 27.6 pg (26-34); Mean Corpuscular Volume 86.3 fl (80-100); Mean Platelet Volume 9.8 fl (7.4-10.4); Monocytes Absolute Auto 0.8 K/mm3 (0.1-0.6); Monocytes Percent Auto 6.5 % (2.6-8.5); Neutrophils Absolute Auto 9.2 K/mm3 (1.3-6.7); Neutrophils Percent Auto 78.9 % (45.5-73.1); Platelet Count Result 298 k/mm3 (150-375); Red Blood Count 3.66 M/mm3 (4.2-5.4); White Blood Count 11.6 K/mm3 (4.5-10.0)
[2021-08-05 10:49] VITALS: BP 139/78; PULSE 94; RESP 20; O2SAT 99
[2021-08-05 10:50] VITALS: BP 139/78; PULSE 95
[2021-08-05 10:50] LABS: Appearance Urine Clear (Clear); Bilirubin Urine Negative (Negative); Blood Urine Negative (Negative); Color Urine Yellow (Yellow); Glucose Urine UA 2+ mg/dL (Negative); Ketones Urine 1+ mg/dL (Negative); Leukocyte Esterase Ur 1+ LEU/UL (Negative); Nitrate Urine Negative (Negative); Protein Urine Negative (Negative); Specific Grav Ur 1.015 (1.001-1.035); Urobilinogen Urine 0.2 mg/dL (<2.0); pH Urine 6.5 (5.0-9.0)
[2021-08-05 10:53] VITALS: BP 129/80; PULSE 96
[2021-08-05 10:54] VITALS: BP 131/85; PULSE 118
[2021-08-05 10:54] LABS: Alanine Aminotransferase 15 U/L (6-35); Albumin Level 3.5 g/dL (3.5-5.1); Alkaline Phosphatase 100 U/L (38-126); Anion Gap 4 mmol/L (8-16); Aspartate Amino Transferase 21 U/L (14-36); Bilirubin,Total 0.3 mg/dL (0.2-1.3); Blood Urea Nitrogen 11 mg/dL (7-17); Calcium 8.6 mg/dL (8.4-10.2); Carbon Dioxide 24 mmol/L (22-30); Chloride 101 mmol/L (98-107); Estimated CRCL calculation 132 ml/min; Estimated Glomerular Filt Rate > 60; Glucose 274 mg/dL (65-110); Lipase 30 U/L (23-300); Potassium 4.7 mmol/L (3.4-5.0); Sodium 129 mmol/L (137-145)
[2021-08-05 10:58] LABS: Bacteria Urine Trace /hpf; Mucus Urine Rare /lpf; RBC Urine 0-2 /hpf (0-2); Squamous Epithelial Cell Urine Moderate /hpf (Few)
--- NOTE | 2021-08-05 11:02 | PC.NURSE ---
called OB to have them come over to monitor babies
[2021-08-05 11:04] LABS: Add Urine Microscopic? YES
[2021-08-05] MEDS: SODIUM CHLORIDE 0.9% IV 1,000 ML 999 ML IV CONT (11:42)
--- NOTE | 2021-08-05 12:40 | PC.NURSE ---
Called to ER to monitor pt. PT states she is type one diabetic. Uses Insulin and Dexcom. States she is 20 weeks gestation with twins. Pt states she had vomiting over weekend. Blood sugar has been high and she has had Ketones. States she feels like she has early DKA. PT has high risk MD at [facility]. Baby A in right lower quadrant (Per patient) with FHT 140-150. Baby B in left lower quadrant (per pt) with FHT 150-160. Frequent movement noted. Abdomen palpated during monitoring and no contractions palpated. Pt does not have pain. Pt has been able to doze off and is resting quietly. SOme irritability seen per TOCO. Spoke ER doctor, he is calling pt high risk MD at [facility].
--- NOTE | 2021-08-05 13:00 | PC.NURSE ---
Spoke with Dr. Kendrick who is walk in OB and ER doctor. ER doctor to call pts high risk MD at [facility].
--- NOTE | 2021-08-05 13:19 | PC.NURSE ---
Dr. Ocampo spoke with pt OB and he wants her to be evaluated there.
--- NOTE | 2021-08-05 13:26 | ED.GENADULT ---
HPI - General Adult General Chief complaint: Recheck/Abnormal Lab/Rx Stated complaint: high BS, 20 weeks preg w/ twins Time Seen by Provider: 08/05/21 11:04 Source: patient Mode of arrival: ambulatory Limitations: no limitations History of Present Illness HPI narrative: 25-year-old 3 para 1 with twin gestation about 20 weeks of gestation, type I diabetic on insulin pump here with complaints of elevated blood sugar and ketones in the urine over the weekend. Patient states that sugars are much better today. She denies any fever or chills. No history of nausea or vomiting. She denies any urinary symptoms. She states that she follows with maternal- medicine at [facility].She endorses Dr. Laura. Hernandez as her OB Onset (ago): day(s) (3) Associated symptoms: denies other symptoms Related Data Home Medications Medication Instructions Recorded Confirmed dextroamphetamine-amphetamine 20 mg PO DAILY 04/24/19 07/26/21 [Adderall XR] clonazepam 0.5 mg DAILY 11/19/19 07/26/21 bupropion HCl 150 mg PO DAILY 04/23/21 07/26/21 duloxetine 90 mg PO DAILY 04/23/21 07/26/21 lamotrigine 100 mg PO DAILY 04/23/21 07/26/21 insulin lispro 100 unit CONTINUOUS SUBCUTANEOUS 07/26/21 07/26/21 INFUSION DIRECTED prenat.vits,brian,[id number]-[id number] 2 tablet PO DAILY 08/05/21 Allergies Allergy/AdvReac Type Severity Reaction Status Date / Time No Known Allergies Allergy Verified 08/05/21 10:55 Review of Systems Review of Systems: All systems reviewed & are unremarkable except as noted in HPI and below Constitutional: Constitutional: Reports no additional constitutional complaints Eyes: Eyes: Reports no additional eye complaints Cardiovascular: Cardiovascular: Reports no additional cardiovascular complaints Respiratory: Respiratory: Reports no additional respiratory complaints Gastrointestinal: Gastrointestinal: Reports no additional gastrointestinal complaints Genitourinary: Genitourinary: Reports no additional female genitourinary complaints Musculoskeletal: Musculoskeletal: Reports no additional musculoskeletal complaints Integumentary/Breasts: Skin/Breast: Reports system reviewed and no additional complaints, except as docu PMFSH Past Medical History Medical History Bipolar 2 disorder SVT (supraventricular tachycardia) Surgical History Surgical History No pertinent past surgical history Social History Social History Smoking status: Former smoker Gender identity (if verbalized by the patient): Female Exam Narrative: GENERAL: Well-appearing, well-nourished, and in no acute distress. HEAD: Normocephalic, atraumatic. EYES: PERRLA and EOMI. NECK: Supple. CHEST: Clear to auscultation. No respiratory distress. HEART: Regular rate and rhythm. No murmur heard. Normal peripheral pulses. ABDOMEN: Soft, nontender, nondistended, normal active bowel sounds. EXTREMITIES: Normal range of motion. No edema. SKIN: Warm, dry, no rash. NEURO: No focal deficits. Alert and oriented x3. PSYCH: Normal mood and affect. Course Course Emergency Course: Patient had NST done here in the ER DC availability in the rhythm strip. Dr. Kendrick recommended her to be transferred to [facility] for observation. I discussed with Dr. Piper ,will see the pt today at [facility] Vital Signs Vital signs: Vital Signs Temperature 36.8 C 08/05/21 09:29 Pulse Rate 106 H 08/05/21 09:29 Respiratory Rate 22 H 08/05/21 09:29 Pulse Oximetry 100 08/05/21 09:29 Temperature 36.8 C 08/05/21 09:29 Pulse Rate 118 H 08/05/21 10:54 Respiratory Rate 20 08/05/21 10:49 Blood Pressure 131/85 08/05/21 10:54 Pulse Oximetry 99 08/05/21 10:49 Medical Decision Making Vital Signs Vital Signs: Vital Signs Temperature 36.8 C 08/05/21 09:29 Pu
== END 2021-08-05 13:45 | disposition home or self-care (01) ==
PROVIDERS: Emergency Provider Family Medicine
DX: O24.012 Pre-existing type 1 diabetes mellitus, in pregnancy, second trimester (principal); E10.65 Type 1 diabetes mellitus with hyperglycemia; O30.002 Twin pregnancy, unspecified number of placenta and unspecified number of amniotic sacs, second trimester; O99.342 Other mental disorders complicating pregnancy, second trimester; F31.81 Bipolar II disorder; Z87.891 Personal history of nicotine dependence; Z3A.20 20 weeks gestation of pregnancy; Z79.4 Long term (current) use of insulin; Z96.41 Presence of insulin pump (external) (internal)
CPT/HCPCS: 36415; 80053; 81001; 82948; 83690; 85025; 96360; 99283; J7030

== ENCOUNTER 2022-10-21 17:18 | Emergency (ER) | payer OTHER, SELFPAY ==
--- NOTE | 2022-10-21 17:21 | ED.SKABFB ---
HPI - Skin/Abscess/Foreign Bdy General Chief complaint: Skin/Abscess/Foreign Body Stated complaint: Redness Around Insulin Pump Site Time Seen by Provider: 10/21/22 17:20 Source: patient Mode of arrival: ambulatory Limitations: no limitations History of Present Illness HPI narrative: Cornea is a 27-year-old female patient presenting to the clinic today with complaints of redness and swelling around her insulin pump site on the left lower abdomen. She reports she noticed this just a few hours prior to arrival and the redness has gotten worse. Reports that she noticed that the area was becoming hard and swollen and removed the insulin pump and now redness is spreading on her abdomen. She is concerned that there may be infection. She denies any fever or chills. Related Data Home Medications Medication Instructions Recorded Confirmed dextroamphetamine-amphetamine ER 20 mg PO DAILY 04/24/19 10/21/22 20 mg 24hr capsule,extend release (Adderall XR) clonazepam 0.5 mg tablet 0.5 mg DAILY 11/19/19 10/21/22 bupropion HCl 150 mg 24 hr tablet, 150 mg PO DAILY 04/23/21 10/21/22 extended release lamotrigine 100 mg tablet 100 mg PO DAILY 04/23/21 10/21/22 insulin lispro 100 unit/mL 100 unit continuous subcutaneous 07/26/21 10/21/22 subcutaneous solution infusion DIRECTED escitalopram oxalate 10 mg tablet 10 mg DIRECTED 10/21/22 10/21/22 Allergies Allergy/AdvReac Type Severity Reaction Status Date / Time No Known Allergies Allergy Verified 08/05/21 10:55 Review of Systems Review of Systems: Pertinent positives per HPI. Patient denies any fever, chills, headache, visual changes, dizziness, cough, runny nose, sore throat, shortness of breath, chest pain, palpitations, nausea, vomiting, diarrhea, constipation, abdominal pain, or any urinary issues. [facility] Past Medical History Medical History Bipolar 2 disorder SVT (supraventricular tachycardia) Surgical History Surgical History No pertinent past surgical history Social History Social History (Reviewed 10/21/22 @ 18:17 by TERESSA Torres Smoking status: Former smoker Gender identity (if verbalized by the patient): Female Comments At the time of my signature, I reviewed and agree with the nursing past medical, surgical, social, and family history. There is no relevant family history pertinent to the patient complaint. Exam Narrative: General: Well-developed, well nourished, in no apparent distress Head: Normocephalic, atraumatic. Cardio: Regular rate and rhythm, s1 and s2 normal, no murmur appreciated. Resp: Clear to auscultation bilaterally, no rhonchi, rales, wheezing or rubs. Integumentary: [place], warm, and dry, redness and swelling around insulin pump site measuring 2 cm x 2 cm of induration, tender to palpation with mild erythema and redness spreading to the mid and lower left abdomen Course Course Emergency Course: Portions of this record may have been created with voice recognition software. Level of Care: Express Care Visit Vital Signs Vital signs: Vital signs reviewed MDM - Skin/Abscess/Foreign Bdy MDM Narrative Medical decision making narrative: At the time of visit patient is resting comfortably on exam table. I suspect patient has cellulitis due to her insulin pump. Will send in prescription for doxycycline and supportive measures were discussed with the patient she voiced understanding discharge instructions and agrees to treatment plan. She was instructed to keep tight control on her blood sugars and watch for signs and symptoms of DKA. Differential Diagnosis Differential diagnosis: Likely abscess of skin or subcutaneous tissue, urticaria, cellulitis, eczema and contact dermatitis Discharge Plan Discharge Clinical Impression: Localized swelling of abdominal wall Cellulitis Qualifie
[2022-10-21 17:28] VITALS: BP 139/72; PULSE 82; RESP 18; TEMP 36.7; O2SAT 100
== END 2022-10-21 17:45 | disposition home or self-care (01) ==
PROVIDERS: Emergency Provider Nurse Practitioner Family
DX: L03.311 Cellulitis of abdominal wall (principal); Z87.891 Personal history of nicotine dependence; F31.81 Bipolar II disorder; E10.9 Type 1 diabetes mellitus without complications; F41.9 Anxiety disorder, unspecified
CPT/HCPCS: 99213; G0463

== ENCOUNTER 2023-01-24 05:01 | Emergency (ER) | payer OTHER, SELFPAY ==
[2023-01-24] VITALS (11 sets, daily range): BP systolic 115–125; BP diastolic 69–81; PULSE 80–95; RESP 13–22; TEMP 36.5; O2SAT 98–100
--- NOTE | ~2023-01-24 | CT_ITS ---
EXAMINATION: CT abdomen pelvis w con DATE: 01/24/2023 06:14 INDICATION: Right lower quadrant abdominal pain TECHNIQUE: Computed tomography (CT) of the abdomen and pelvis was performed with 100 CC Omnipaque 350 intravenous contrast. Automated exposure control and iterative reconstruction technique were employe d. Exam dose: 924.03 mGy-cm total exam DLP. COMPARISON: 11/23/2019 CT abdomen pelvis FINDINGS: The lung bases are clear. Normal heart size. No pericardial or pleural effusion. The liver, gallbladder, bile ducts, pancreas, pancreatic duct and spleen are normal. Normal morphology of the adrenal glands. 4.5 mm right renal cyst. Pinpoint nonobstructing lower pole left renal nonobstructing calculus. No ureteral calculus or hydrou reteronephrosis is evident on either side. The urinary bladder, uterus and adnexal areas are unremark able. Normal caliber of the abdominal aorta. Numerous shotty nonenlarged mesenteric lymph nodes. No evidence of appendicitis is detected. No bowel obstruction. Air-fluid level or terminal ileum may be due to mild adynamic ileus or enteritis. Small fat-containing umbilical hernia. Included skeletal structures are unremarkable. IMPRESSION: Air-fluid level, terminal ileum, possibly due to mild adynamic ileus or enteritis Nonspecific shotty nonenlarged mesenteric lymph nodes which may represent mesenteric adenitis Normal appendix Pinpoint nonobstructing lower pole left renal calculus 4.5 mm right renal cyst Reviewed, dictated and finalized at [facility]. Reviewed, dictated and finalized at [facility]. IMPRESSION: Air-fluid level, terminal ileum, possibly due to mild adynamic ile us or enteritis Nonspecific shotty nonenlarged mesenteric lymph nodes which may represent mesen teric adenitis Normal appendix Pinpoint nonobstructing lower pole left renal calculus 4.5 mm right renal cyst
--- NOTE | 2023-01-24 05:13 | PC.NURSE ---
Patient arrives with cc of right sided abd pain, mostly on the lower side. Patient states mostly right by my scar. Patient states she had some nausea but no vomiting yesterday. Patient states the pain started as cramps yesterday but the pain got worse this AM. Patient states the pain is worse with movement and palpation. Patient states she is also a type 1 diabetic and her sugars have been running a little high. Patient states she has tried ibuprofen with no relief.
--- NOTE | 2023-01-24 05:24 | ED.ABDPAIN ---
HPI - Abdominal Pain General Chief Complaint: Abdominal Pain Stated Complaint: abd pain Time Seen by Provider: 01/24/23 05:11 Source: patient Limitations: no limitations History of Present Illness HPI narrative: Patient is a 27-year-old female present to the emergency department complaining of abdominal pain. Patient states Thursday yesterday around noon she noticed some periumbilical suprapubic cramping discomfort that was coming and going and thought it was her menstrual cramps as she is currently on her menstrual cycle and she took an ibuprofen with mild relief and then today around 3:30 AM when she was up taking care of her child the pain seemed to migrate to her right lower quadrant and is now tender in quality, hurts when she moves, is now constant pain, does not radiate, denies any history this pain in the past, admits to bumps in the road hurting while coming to the emergency department. Patient notes that she googled her symptoms online and when her pushed on her abdomen and that right lower quadrant to hurt a lot. Patient admits to history of in the past and denies any other surgeries. Patient admits to history of type 1 diabetes mellitus for which she has an insulin pump. Patient denies dysuria, hematuria, urinary frequency, urinary urgency, history of kidney stones, cough, fever, recent injuries, recent illness, vomiting, diarrhea, melena, hematochezia, rash, numbness, weakness, chest pain, shortness of breath. Related Data Home Medications Medication Instructions Recorded Confirmed dextroamphetamine-amphetamine ER 20 mg PO DAILY 04/24/19 10/21/22 20 mg 24hr capsule,extend release (Adderall XR) clonazepam 0.5 mg tablet 0.5 mg DAILY 11/19/19 10/21/22 bupropion HCl 150 mg 24 hr tablet, 150 mg PO DAILY 04/23/21 10/21/22 extended release lamotrigine 100 mg tablet 100 mg PO DAILY 04/23/21 10/21/22 insulin lispro 100 unit/mL 100 unit continuous subcutaneous 07/26/21 10/21/22 subcutaneous solution infusion DIRECTED escitalopram oxalate 10 mg tablet 10 mg DIRECTED 10/21/22 10/21/22 Allergies Allergy/AdvReac Type Severity Reaction Status Date / Time No Known Allergies Allergy Verified 01/24/23 05:05 Review of Systems Review of Systems: A 10 system review of systems was completed on the patient and is negative except for what is stated in the HPI. Nursing and ancillary documentation was reviewed. [facility] Past Medical History Medical History Bipolar 2 disorder SVT (supraventricular tachycardia) Surgical History Surgical History No pertinent past surgical history Social History Social History Smoking status: Former smoker Gender identity (if verbalized by the patient): Female Comments At time of signature, I have reviewed and agree with nursing past medical, surgical, social and family history unless otherwise noted. Please see the nursing chart for further information. There is no relevant family history pertinent to the presenting complaint. Exam Narrative: CONST: No acute distress. Well nourished. HENMT: Head is normocephalic and atraumatic. Moist mucous membranes. No posterior oropharynx erythema. EYES: No conjunctival icterus, injection, or pallor. PERRL. NECK: No meningeal signs. RESP: Able to speak in full sentences. Normal respiratory effort. CTAB. CARDIO: Regular rate. Regular rhythm. 2+ DP and radial pulses bilaterally. GI: Nondistended. Soft. Insulin pump present on the left upper quadrant. Mild tenderness to palpation at McBurney's point. No rebound or guarding or rigidity. Negative obturator sign. Positive psoas sign. Positive Rovsing sign. Negative Cline sign. No palpable masses or hernias. : No CVA tenderness to palpation. SKIN: No rashes or lesions noted on exposed
[2023-01-24] MEDS: SODIUM CHLORIDE 0.9% IV 1,000 ML 999 ML IV CONT (05:32)
[2023-01-24] MEDS: MORPHINE SULFATE (*CRX) 4 MG/ML INJ IV PUSH (05:32)
[2023-01-24 05:41] LABS: Basophils Percent Auto 0.4 % (0.2-1.2); Eosinophils Absolute Auto 0.2 K/mm3 (0-0.3); Eosinophils Percent Auto 3.6 % (0-4.4); Hematocrit 40.2 % (37.0-47.0); Hemoglobin 12.8 g/dL (12.0-15.0); Immature Granulocyte Absolute 0.02 K/mm3 (0.00-0.031); Immature Granulocyte Percent A 0.3 % (0-0.5); Lymphocytes Absolute Auto 1.48 K/mm3 (0.9-3.2); Lymphocytes Percent Auto 21.9 % (18.3-44.2); Mean Corpuscular HGB Conc 31.8 g/dl (32-36); Mean Platelet Volume 10.2 fl (7.4-10.4); Monocytes Absolute Auto 0.5 K/mm3 (0.1-0.6); Monocytes Percent Auto 7.4 % (2.6-8.5); Neutrophils Absolute Auto 4.5 K/mm3 (1.3-6.7); Neutrophils Percent Auto 66.4 % (45.5-73.1); Platelet Count Result 320 k/mm3 (150-375); Red Blood Count 4.57 M/mm3 (4.2-5.4); White Blood Count 6.8 K/mm3 (4.5-10.0)
[2023-01-24 05:45] LABS: Appearance Urine Clear (Clear); Bacteria Urine None Seen /hpf; Bilirubin Urine Negative (Negative); Blood Urine 1+ (Negative); Color Urine Yellow (Yellow); Glucose Urine UA 3+ mg/dL (Negative); Ketones Urine Negative (Negative); Leukocyte Esterase Ur Negative LEU/UL (Negative); Nitrate Urine Negative (Negative); Non Pathogenic Casts 0-2; Protein Urine Negative (Negative); RBC Urine 0-2 /hpf (0-2); Specific Grav Ur 1.028 (1.001-1.035); Squamous Epithelial Cell Urine Occasional /hpf (Few); Urobilinogen Urine 0.2 mg/dL (<2.0); WBC Urine 0-5 /hpf; pH Urine 5.5 (5.0-9.0)
[2023-01-24 05:51] LABS: Add Urine Microscopic? YES
[2023-01-24 05:53] LABS: Alanine Aminotransferase 13 U/L (6-35); Albumin Level 3.9 g/dL (3.5-5.1); Alkaline Phosphatase 102 U/L (38-126); Anion Gap 6 mmol/L (8-16); Aspartate Amino Transferase 17 U/L (14-36); Bilirubin,Total 0.4 mg/dL (0.2-1.3); Blood Urea Nitrogen 14 mg/dL (7-17); Calcium 8.9 mg/dL (8.4-10.2); Carbon Dioxide 24 mmol/L (22-30); Chloride 105 mmol/L (98-107); Estimated CRCL calculation 112 ml/min; Estimated Glomerular Filt Rate > 60; Glucose 298 mg/dL (65-110); Lipase 47 U/L (23-300); Potassium 4.2 mmol/L (3.4-5.0); Sodium 135 mmol/L (137-145)
[2023-01-24 05:55] LABS: CRP 0.6 mg/dL (<1.0)
[2023-01-24 05:58] LABS: INR 0.9; Prothrombin Time 12.8 Seconds (11.1-14.7)
--- NOTE | 2023-01-24 05:58 | PC.NURSE ---
Patient taken to CT via w/c at this time.
[2023-01-24 05:59] LABS: Partial Thromboplastin Time 29.8 SECONDS (22.3-36.8)
[2023-01-24 06:00] LABS: SPREG INTERNAL CONTROL Positive; Serum Qual hCG Negative
== END 2023-01-24 07:42 | disposition home or self-care (01) ==
PROVIDERS: Emergency Provider Student in an Organized Health Care Education/Training Program
DX: I88.0 Nonspecific mesenteric lymphadenitis (principal); Z87.891 Personal history of nicotine dependence
CPT/HCPCS: 36415; 74177; 80053; 81001; 81025; 83605; 83690; 84703; 85025; 85610; 85730; 86140; 86850; 86900; 86901; 96361; 96374; 99284; J2270; J7030; Q9967

== ENCOUNTER 2023-07-30 07:40 | Emergency (ER) | payer OTHER, SELFPAY ==
--- NOTE | ~2023-07-30 | CT_ITS ---
Non-contrast CT scan of the Abdomen and Pelvis Clinical indication: Right flank pain Technique: 2.5 mm axial scans were obtained through the abdomen and pelvis without intravenous or or al contrast. Dose reduction technique was used on this scan by utilizing automated exposure control a nd iterative reconstruction technique. The dose-length product (DLP) was 617.95 mGy-cm. COMPARISON: 01/24/2023 Findings: Images through the lung bases reveal no abnormalities. There is probable medullary nephrocalcinosis bilaterally. Tiny renal stones are not excluded. No hydr onephrosis or ureteral stones seen. The liver, spleen, pancreas, gallbladder, and adrenals appear normal. There is no aortic aneurysm. There is no evidence of bowel obstruction. Images through the pelvis were performed. There is no evidence of ascites or lymphadenopathy. Urinary bladder unremarkable. Probable 4 cm right adnexal cystic mass present. Impression: 4 cm probable cystic right adnexal mass. Consider pelvic ultrasound for further evaluation. Probable medullary nephrocalcinosis bilaterally, rather than renal stones. Tiny nonobstructing renal stones are not excluded however. No hydronephrosis or ureteral stone. Reviewed, dictated and finalized at [facility]. Impression: 4 cm probable cystic right adnexal mass. Consider pelvic ultrasound for further evaluation. Probable medullary nephrocalcinosis bilaterally, rather than renal stones. Tiny nonobstructing renal stones are not excluded however. No hydronephrosis or ure teral stone.
--- NOTE | ~2023-07-30 | US_ITS ---
EXAMINATION: US pelvic complete w TV DATE: 07/30/2023 10:26 INDICATION: Right adnexal mass Comparison:CT dated 07/30/2023 TECHNIQUE: Multiple transabdominal and endovaginal sonographic images of the pelvis performed. FINDINGS: The uterus measures 11.3 x 4.9 x 5.9 cm. The endometrial complex measures 12 mm. The right ovary measures 5.1 x 4.2 x 4.1 cm and the left ovary measures 4.7 x 2 x 2.3 cm. There is a solid right ovarian mass measuring 4 cm. There are small follicles in each ovary. Normal d oppler signal in both ovaries. There is no free fluid in the pelvis. There are no abnormal masses seen on either side. IMPRESSION: 1. Solid right ovarian mass measuring 4 cm. Differential diagnosis includes benign fibroma, germ cell tumors and malignant epithelial tumors. 2: Mild endometrial thickening measuring 12 mm. 3: Uterine enlargement. Reviewed, dictated and finalized at [facility]. IMPRESSION: 1. Solid right ovarian mass measuring 4 cm. Differential diagnosis includes alem ign fibroma, germ cell tumors and malignant epithelial tumors. 2: Mild endometrial thickening measuring 12 mm. 3: Uterine enlargement.
[2023-07-30 07:54] VITALS: BP 138/86; PULSE 90; RESP 16; O2SAT 100
[2023-07-30 08:43] LABS: Basophils Percent Auto 0.5 % (0.2-1.2); Eosinophils Absolute Auto 0.2 K/mm3 (0-0.3); Eosinophils Percent Auto 3.4 % (0-4.4); Hematocrit 36.8 % (37.0-47.0); Hemoglobin 12.1 g/dL (12.0-15.0); Immature Granulocyte Absolute 0.01 K/mm3 (0.00-0.031); Immature Granulocyte Percent A 0.2 % (0-0.5); Lymphocytes Absolute Auto 1.58 K/mm3 (0.9-3.2); Lymphocytes Percent Auto 35.9 % (18.3-44.2); Mean Corpuscular HGB Conc 32.9 g/dl (32-36); Mean Corpuscular Hemoglobin 27.3 pg (26-34); Mean Corpuscular Volume 83.1 fl (80-100); Mean Platelet Volume 9.7 fl (7.4-10.4); Monocytes Absolute Auto 0.3 K/mm3 (0.1-0.6); Monocytes Percent Auto 7.7 % (2.6-8.5); Neutrophils Absolute Auto 2.3 K/mm3 (1.3-6.7); Neutrophils Percent Auto 52.3 % (45.5-73.1); Platelet Count Result 312 k/mm3 (150-375); Red Blood Count 4.43 M/mm3 (4.2-5.4); Red Cell Distribution Width 13.5 % (11.5-14.5); White Blood Count 4.4 K/mm3 (4.5-10.0)
[2023-07-30 08:46] LABS: Appearance Urine Clear (Clear); Bilirubin Urine Negative (Negative); Blood Urine Negative (Negative); Color Urine Dark Yellow (Yellow); Glucose Urine UA 2+ mg/dL (Negative); Ketones Urine Negative (Negative); Leukocyte Esterase Ur Negative LEU/UL (Negative); Nitrate Urine Negative (Negative); Protein Urine Negative (Negative); Specific Grav Ur 1.023 (1.001-1.035); Urobilinogen Urine 0.2 mg/dL (<2.0); pH Urine 6.5 (5.0-9.0)
[2023-07-30 08:48] LABS: Add Urine Microscopic? NO
[2023-07-30 08:54] LABS: Alanine Aminotransferase 14 U/L (6-35); Albumin Level 4.1 g/dL (3.5-5.1); Alkaline Phosphatase 83 U/L (38-126); Anion Gap 6 mmol/L (4-12); Aspartate Amino Transferase 18 U/L (14-36); Bilirubin,Total 0.5 mg/dL (0.2-1.3); Blood Urea Nitrogen 11 mg/dL (7-17); Calcium 9.2 mg/dL (8.4-10.2); Carbon Dioxide 26 mmol/L (22-30); Chloride 107 mmol/L (98-107); Estimated CRCL calculation 112 ml/min; Estimated Glomerular Filt Rate > 60; Glucose 179 mg/dL (65-110); Lipase 28 U/L (23-300); Sodium 139 mmol/L (137-145)
[2023-07-30 09:17] VITALS: BP 126/86; PULSE 73; RESP 16; O2SAT 99
[2023-07-30] MEDS: KETOROLAC 30 MG/ML VIAL (*BKC) IV PUSH (09:47)
--- NOTE | 2023-07-30 10:53 | ED.ABDPAIN ---
HPI - Abdominal Pain General Chief Complaint: Abdominal Pain Stated Complaint: RUQ pain Time Seen by Provider: 07/30/23 07:52 History of Present Illness HPI narrative: Patient is a 27-year-old female who presents ER with right-sided abdominal pain. It is located diffusely throughout the right-sided abdomen. She also feels discomfort moving into her back and sometimes towards her leg. No known injury. Pain is worse with palpation abdomen. No urinary frequency urgency or dysuria. No pain with eating or drinking. No pain with deep breath. She has history of ovarian cysts in the past. Patient is also type 1 diabetic. Related Data Home Medications Medication Instructions Recorded Confirmed dextroamphetamine-amphetamine ER 20 mg PO DAILY 04/24/19 10/21/22 20 mg 24hr capsule,extend release (Adderall XR) clonazepam 0.5 mg tablet 0.5 mg DAILY 11/19/19 10/21/22 bupropion HCl 150 mg 24 hr tablet, 150 mg PO DAILY 04/23/21 10/21/22 extended release lamotrigine 100 mg tablet 100 mg PO DAILY 04/23/21 10/21/22 insulin lispro 100 unit/mL 100 unit continuous subcutaneous 07/26/21 10/21/22 subcutaneous solution infusion DIRECTED escitalopram oxalate 10 mg tablet 10 mg DIRECTED 10/21/22 10/21/22 Allergies Allergy/AdvReac Type Severity Reaction Status Date / Time No Known Allergies Allergy Verified 07/30/23 07:40 Review of Systems Review of Systems: All systems reviewed & are unremarkable except as noted in HPI and below Constitutional: Constitutional: Reports no additional constitutional complaints ENT: Reports system reviewed and no additional complaints, except as documented Cardiovascular: Cardiovascular: Reports no additional cardiovascular complaints Respiratory: Respiratory: Reports no additional respiratory complaints Gastrointestinal: Gastrointestinal: Reports abdominal pain, Denies diarrhea, Denies nausea and Denies vomiting Genitourinary: Genitourinary: Denies abnormal vaginal bleeding, Denies nocturia, Denies dysuria, Reports pelvic pain, Reports flank pain and Denies vaginal discharge Integumentary/Breasts: Skin/Breast: Reports system reviewed and no additional complaints, except as docu [facility] Past Medical History Medical History (Updated 07/30/23 @ 11:12 by Agustín Osuna MD) Bipolar 2 disorder SVT (supraventricular tachycardia) Type 1 diabetes Surgical History Surgical History No pertinent past surgical history Social History Social History Smoking status: Former smoker Gender identity (if verbalized by the patient): Female Exam Narrative: GENERAL: Well-appearing, well-nourished, and in no acute distress. HEAD: Normocephalic, atraumatic. ENT: Mucous membranes moist. NECK: Supple. CHEST: Clear to auscultation. No respiratory distress. HEART: Regular rate and rhythm. Normal peripheral pulses. ABDOMEN: Soft, mildly tender palpation right lower quadrant moving and pelvic region, nondistended. no CVA tenderness. EXTREMITIES: Normal range of motion. No edema. SKIN: Warm, dry, no rash. NEURO: Alert and oriented x3. PSYCH: Normal mood and affect. Course Course Emergency Course: patient resting comfortably. Evidence of mass the right ovary. Discussed with her dictaphone typist Dr. Piper, recommend close f/u in clinic. Patient will contact for an appointment. Vital Signs Vital signs: Vital Signs Pulse Rate 90 07/30/23 07:54 Respiratory Rate 16 07/30/23 07:54 Blood Pressure 138/86 07/30/23 07:54 Pulse Oximetry 100 07/30/23 07:54 Pulse Rate 73 07/30/23 09:17 Respiratory Rate 16 07/30/23 09:17 Blood Pressure 126/86 07/30/23 09:17 Pulse Oximetry 99 07/30/23 09:17 MDM - Abdominal Pain Lab Data 07/30/23 08:36 07/30/23 08:36 Labs: Lab Results 07/30/23 Range/Units 08:36 WB
== END 2023-07-30 11:24 | disposition home or self-care (01) ==
PROVIDERS: Emergency Provider Emergency Medicine
DX: N83.8 Other noninflammatory disorders of ovary, fallopian tube and broad ligament (principal); E10.9 Type 1 diabetes mellitus without complications; F31.81 Bipolar II disorder; Z87.891 Personal history of nicotine dependence; N85.2 Hypertrophy of uterus; R93.89 Abnormal findings on diagnostic imaging of other specified body structures
CPT/HCPCS: 36415; 74176; 76830; 76856; 80053; 81003; 81025; 83690; 85025; 96374; 99284; J1885

== ENCOUNTER 2024-07-11 09:17 | Emergency (ER) | payer OTHER, SELFPAY ==
--- NOTE | 2024-07-11 09:20 | ED_ITS ---
HPI - Skin/Abscess/Foreign Bdy General Chief complaint: Skin/Abscess/Foreign Body Stated complaint: lip sore/radiating pain Time Seen by Provider: 07/11/24 09:20 Source: patient Mode of arrival: ambulatory Limitations: no limitations History of Present Illness HPI narrative: Patient is a 28-year-old female presents with sore on right upper lip for 2 days. Patient states it started as a small bump but has no become swollen red and tender to touch. Patient states the pain radiates into order of right high. 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 Denies any history of cold sores. Denies any drainage and has not tried to pop Related Data Home Medications ?Medication ?Instructions ?Recorded ?Confirmed ?Last Taken ?Type dextroamphetamine-amphetamine ER 20 mg PO DAILY 04/24/19 07/11/24 08/05/21 History 20 mg 24hr capsule,extend release (Adderall XR) clonazepam 0.5 mg tablet 0.5 mg PO DAILY 11/19/19 07/11/24 08/05/21 History bupropion HCl 150 mg 24 hr tablet, 150 mg PO DAILY 04/23/21 07/11/24 08/05/21 History extended release lamotrigine 100 mg tablet 100 mg PO DAILY 04/23/21 07/11/24 08/04/21 History insulin lispro 100 unit/mL 100 unit continuous subcutaneous 07/26/21 07/11/24 08/05/21 History subcutaneous solution infusion DIRECTED escitalopram oxalate 10 mg tablet 10 mg PO DIRECTED 10/21/22 07/11/24 Unknown History Allergies Allergy/AdvReac Type Severity Reaction Status Date / Time No Known Allergies Allergy Verified 07/11/24 09:28 Review of Systems 2 Review of Systems: All systems reviewed & are unremarkable except as noted in HPI and below Constitutional: Constitutional: Denies body ache(s), Denies chills, Denies fatigue, Denies fever(s), Denies headache(s), Denies malaise and Denies weakness Eyes: Eyes: Denies blurry vision, Denies irritation and Denies loss of vision ENT: Denies otalgia, Denies headache(s), Denies nasal discharge, Denies sinus pain and Denies sore throat Cardiovascular: Cardiovascular: Denies chest pain, Denies irregular heart rhythm and Denies dyspnea Respiratory: Respiratory: Denies dyspnea Gastrointestinal: Gastrointestinal: Denies abdominal pain, Denies melena, Denies hematochezia, Denies diarrhea, Denies nausea and Denies vomiting Musculoskeletal: Musculoskeletal: Denies back pain, Denies myalgias and Denies arthralgias Integumentary/Breasts: Skin/Breast: Denies pruritus, Denies rash and Reports wounds Neurologic: Denies headache(s), Denies loss of vision and Denies weakness Psychiatric: Psychiatric: Reports no additional psychiatric complaints Endocrine: Endocrine: Denies fatigue PMFSH Past Medical History Medical History Type 1 diabetes Bipolar 2 disorder SVT (supraventricular tachycardia) Surgical History Surgical History No pertinent past surgical history Social History Social History Smoking status: Former smoker Gender identity (if verbalized by the patient): Female Comments At time of signature, agree with nursing past medical, surgical, social and family history. There is no relevant family history pertinent to the presenting complaint. Exam 2 Const: General: cooperative, healthy appearing, comfortable, no acute distress and well nourished Nutritional Appearance: well nourished O rientation/consciousness: patient oriented x3 Limitations: no limitations HENMT: Head: normal to inspection, normocephalic and atraumatic Ears: h earing grossly normal bilaterally and external ears normal Face/Nose/Sinus: N ormal external nose present, normal facial exam and face symmetric Nose image: 1. 0.25 cm sore that is white in color, with surrounding erythema and swelling. 1 cm round mass palpated under sore, no fluctuation. Face and sinus: normal facial exam and face symmetric Mouth: Yes lip normal Eyes: General: appearance normal, both eyes and all related structures A lignment and Position: alignment normal and position normal Periorbital: p eriorbital findings normal Eyelids: eyelids normal Pupils: Equal, round and reactive pupils present EOM: EOMs intact bilaterally Neck: Neck: normal visual inspection, full ROM and supple Chest: Chest palpation & inspection: normal inspection of the chest Resp: Effort & Inspection: normal respiratory effort and able to speak in complete sentences Auscultation: clear to auscultation bilaterally Cardio: Rate: regular rate Rhythm: regular rhythm Heart sounds: S1 normal heart sound present and S2 normal heart sound present GI: Inspection: normal to inspection Skin: General skin exam: normal color and no rashes or lesions noted Neuro: General: patient oriented x3 and moves all extremities Cranial nerves: Yes Equal, round and reactive pupils present Speech: normal speech Gait exam (Neuro): Normal gait present Extrem: General: normal to inspection, full ROM and no edema Psych: Appearance: grossly normal and well kempt Mental Status: mental status grossly normal Speech and movement: Normal speech and movement present Affect: normal affect Attitude: cooperative Thought process: Normal thought process present Course Course Emergency Course: Patient is aware of diagnosis, understands and agrees to treatment plan. Anticipatory guidance given. Patient agrees to follow-up as directed and is aware of reasons to seek care at the emergency department. Portions of this record may have been created with voice recognition software Level of Care: Express Care Visit Vital Signs Vital signs: Reviewed MDM - Skin/Abscess/Foreign Bdy MDM Narrative Medical decision making narrative: Concern for bacterial infection with history of MRSA, will treat with antibiotics. Patient is a type 1 diabetic and we discussed going to the hospital with any worsening pain, redness or drainage as these may be signs of worsening infection. Pt well hydrated appearing, in no respiratory distress, hemodynamically stable. Recommend supportive care. The patient is stable at time of discharge the clinical impression was discussed and the patient was given the opportunity to ask questions, which were addressed as completely as possible given the information available at present. Anticipatory guidance and return to care precautions were discussed and the importance of primary care follow-up was stressed and encouraged. The patient voiced understanding of the plan, indications to return, and the need for follow-up. Exam findings show no acute concerns or changes Patient is appropriate for outpatient treatment and follow-up. Differential Diagnosis Differential diagnosis: Likely abscess of skin or subcutaneous tissue, viral exanthem, herpes zoster, cellulitis, insect bites, impetigo and contact dermatitis Medical Records Attestation: I reviewed the patient's medical records. Discharge Plan Discharge Clinical Impression: Cellulitis and abscess of mouth Patient Disposition: Home Condition: Stable Instructions: Cellulitis (ED) Additional Instructions: Please follow up with your Primary Care Doctor within 48-72 hours - call for an appointment. Rest and elevate affected area; apply moist heat 3-4 times daily for 10-15 minutes. Take Motrin 600mg every 8 hours with food for pain. Please take Antibiotics as directed. If you experience any worsening redness, swelling, streaking (red lines), fever or chills please go to the ER Patient Language: German Prescriptions: New sulfamethoxazole-trimethoprim 800-160 mg tablet 1 tablet PO Q12H 7 Days Qty: 14 0RF No Action clonazepam 0.5 mg tablet 0.5 mg PO DAILY insulin lispro 100 unit/mL solution 100 unit continuous subcutaneous infusion DIRECTED escitalopram oxalate 10 mg tablet 10 mg PO DIRECTED lamotrigine 100 mg tablet 100 mg PO DAILY bupropion HCl 150 mg tablet extended release 24 hr 150 mg PO DAILY dextroamphetamine-amphetamine [Adderall XR] 20 mg capsule,extended release 24hr 20 mg PO DAILY ibuprofen 400 mg tablet 400 mg PO Q6H PRN (Reason: pain) Qty: 30 0RF acetaminophen [Tylenol] 325 mg capsule 325 mg PO Q6H PRN (Reason: pain) Qty: 30 0RF naproxen 375 mg tablet 375 mg PO BID Qty: 14 0RF Follow-up/Referrals: Bright Hancock MD [Physician] - 3 Days (Establish care) Stand Alone Forms: Work/School Release IP Time of Disposition: 09:59
[2024-07-11 09:26] VITALS: BP 128/79; PULSE 77; RESP 16; TEMP 36.3; O2SAT 100
== END 2024-07-11 10:03 | disposition home or self-care (01) ==
PROVIDERS: Emergency Provider Nurse Practitioner Family
DX: K12.2 Cellulitis and abscess of mouth (principal); E10.9 Type 1 diabetes mellitus without complications; F31.81 Bipolar II disorder; I47.10 Supraventricular tachycardia, unspecified; Z79.4 Long term (current) use of insulin
CPT/HCPCS: 99213; G0463

== ENCOUNTER 2024-07-13 08:51 | Emergency (ER) | payer OTHER, SELFPAY ==
--- NOTE | 2024-07-13 09:01 | ED_ITS ---
HPI - Skin/Abscess/Foreign Bdy General Chief complaint: Skin/Abscess/Foreign Body Stated complaint: pain radiating from lip Time Seen by Provider: 07/13/24 08:56 Source: patient Mode of arrival: ambulatory Limitations: no limitations History of Present Illness HPI narrative: Patient is a 28-year-old female who presents with sore on her right upper lip. Patient was seen here 2 days ago for same sore and was given Bactrim. Patient went to [facility] ER yesterday and was told she was jumping on a gone and left antibiotics work since she has only had 3 doses of antibiotics at that time. Patient states last night when she was using a warm compress there was a small amount of drainage that was thick and green in color. Patient states after that the sore just started having more burning and throbbing pain. Patient states she is not able to eat large meals due to pain. Also reports some abdominal discomfort due to ibuprofen use. Related Data Home Medications ?Medication ?Instructions ?Recorded ?Confirmed ?Last Taken ?Type dextroamphetamine-amphetamine ER 20 mg PO DAILY 04/24/19 07/11/24 08/05/21 History 20 mg 24hr capsule,extend release (Adderall XR) clonazepam 0.5 mg tablet 0.5 mg PO DAILY 11/19/19 07/11/24 08/05/21 History bupropion HCl 150 mg 24 hr tablet, 150 mg PO DAILY 04/23/21 07/11/24 08/05/21 History extended release lamotrigine 100 mg tablet 100 mg PO DAILY 04/23/21 07/11/24 08/04/21 History insulin lispro 100 unit/mL 100 unit continuous subcutaneous 07/26/21 07/11/24 08/05/21 History subcutaneous solution infusion DIRECTED escitalopram oxalate 10 mg tablet 10 mg PO DIRECTED 10/21/22 07/11/24 Unknown History Allergies Allergy/AdvReac Type Severity Reaction Status Date / Time No Known Allergies Allergy Verified 07/13/24 09:15 Review of Systems 2 Review of Systems: All systems reviewed & are unremarkable except as noted in HPI and below Constitutional: Constitutional: Denies body ache(s), Denies chills, Denies fatigue, Denies fever(s), Denies headache(s), Denies malaise and Denies weakness Eyes: Eyes: Denies blurry vision, Denies irritation and Denies loss of vision ENT: Denies otalgia, Denies headache(s), Denies nasal discharge, Denies sinus pain and Denies sore throat Cardiovascular: Cardiovascular: Denies chest pain, Denies irregular heart rhythm and Denies dyspnea Respiratory: Respiratory: Denies dyspnea Gastrointestinal: Gastrointestinal: Denies abdominal pain, Denies melena, Denies hematochezia, Denies diarrhea, Denies nausea and Denies vomiting Musculoskeletal: Musculoskeletal: Denies back pain, Denies myalgias and Denies arthralgias Integumentary/Breasts: Skin/Breast: Denies pruritus, Denies rash and Reports wounds Neurologic: Denies headache(s), Denies loss of vision and Denies weakness Psychiatric: Psychiatric: Reports no additional psychiatric complaints Endocrine: Endocrine: Denies fatigue PMFSH Past Medical History Medical History Type 1 diabetes Bipolar 2 disorder SVT (supraventricular tachycardia) Surgical History Surgical History No pertinent past surgical history Social History Social History Smoking status: Former smoker Gender identity (if verbalized by the patient): Female Comments At time of signature, agree with nursing past medical, surgical, social and family history. There is no relevant family history pertinent to the presenting complaint. Exam 2 Const: General: cooperative, healthy appearing, comfortable, no acute distress and well nourished Nutritional Appearance: well nourished O rientation/consciousness: patient oriented x3 Limitations: no limitations HENMT: Head: normal to inspection, normocephalic and atraumatic Ears: h earing grossly normal bilaterally and external ears normal Face/Nose/Sinus: N ormal external nose present, normal facial exam and face symmetric Nose image: 1. 0.25 cm area is now scabbed over. Continues to have surrounding erythema and swelling. 1.5 cm round mass palpated under sore, no fluctuation. NO red streaking or active drainage. Face and sinus: normal facial exam and face symmetric Mouth: Yes lip normal Eyes: General: appearance normal, both eyes and all related structures A lignment and Position: alignment normal and position normal Periorbital: p eriorbital findings normal Eyelids: eyelids normal Pupils: Equal, round and reactive pupils present EOM: EOMs intact bilaterally Neck: Neck: normal visual inspection, full ROM and supple Chest: Chest palpation & inspection: normal inspection of the chest Resp: Effort & Inspection: normal respiratory effort and able to speak in complete sentences Auscultation: clear to auscultation bilaterally Cardio: Rate: regular rate Rhythm: regular rhythm Heart sounds: S1 normal heart sound present and S2 normal heart sound present GI: Inspection: normal to inspection Skin: General skin exam: normal color and no rashes or lesions noted Neuro: General: patient oriented x3 and moves all extremities Cranial nerves: Yes Equal, round and reactive pupils present Speech: normal speech Gait exam (Neuro): Normal gait present Extrem: General: normal to inspection, full ROM and no edema Psych: Appearance: grossly normal and well kempt Mental Status: mental status grossly normal Speech and movement: Normal speech and movement present Affect: normal affect Attitude: cooperative Thought process: Normal thought process present Course Course Emergency Course: Patient is aware of diagnosis, understands and agrees to treatment plan. Anticipatory guidance given. Patient agrees to follow-up as directed and is aware of reasons to seek care at the emergency department. Portions of this record may have been created with voice recognition software Level of Care: Express Care Visit Vital Signs Vital signs: Reviewed MDM - Skin/Abscess/Foreign Bdy MDM Narrative Medical decision making narrative: Patient given 2nd antibiotic, lidocaine rib pain and antibiotic ointment. Patient again educated on signs symptoms that would require emergency room visit. Discussed allowing both antibiotics to work in conjunction for up to 2 days before she results. Pt well hydrated appearing, in no respiratory distress, hemodynamically stable. Recommend supportive care. The patient is stable at time of discharge the clinical impression was discussed and the patient was given the opportunity to ask questions, which were addressed as completely as possible given the information available at present. Anticipatory guidance and return to care precautions were discussed and the importance of primary care follow-up was stressed and encouraged. The patient voiced understanding of the plan, indications to return, and the need for follow-up. Exam findings show no acute concerns or changes Patient is appropriate for outpatient treatment and follow-up. Differential Diagnosis Differential diagnosis: Likely abscess of skin or subcutaneous tissue, cellulitis, insect bites and impetigo Medical Records Attestation: I reviewed the patient's medical records. Discharge Plan Discharge Clinical Impression: Abscess of skin or subcutaneous tissue Qualifiers: Site of cutaneous abscess: face Qualified Code(s): L02.01 - Cutaneous abscess of face Cellulitis Qualifiers: Site of cellulitis: face Qualified Code(s): L03.211 - Cellulitis of face Patient Disposition: Home Condition: Stable Instructions: Abscess (ED) Additional Instructions: Please follow up with your Primary Care Doctor within 48-72 hours - call for an appointment. Apply moist heat 3-4 times daily for 10-15 minutes. Please take Antibiotics as directed. Wash with mild soap twice a day and apply antibiotic ointment. Use lidocaine on the inside of lip for pain. Do not use on the opening of sore. For pain, you may take: Tylenol 650-1000mg by mouth every 4-6 hours. Do not exceed 4000mg in 24 hours. Advil (Ibuprofen) 600 mg by mouth every 6 hours. Do not exceed 2400mg in 24 hours. 8 AM: Tylenol 11 AM: Ibuprofen 2 PM: Tylenol 5 PM: Ibuprofen 8 PM: Tylenol 11 PM: Ibuprofen 2 AM: Tylenol 5 AM: Ibuprofen If you experience any worsening redness, swelling, streaking (red lines), fever or chills please go to the ER Patient Language: Kosovan Prescriptions: New clindamycin HCl 300 mg capsule 300 mg PO Q8H 10 Days Qty: 30 0RF lidocaine HCl [Lidocaine Viscous] 2 % solution 1 applic mucous membrane TID PRN (Reason: pain) 7 Days Qty: 600 0RF mupirocin 2 % ointment 1 applic topical BID Qty: 15 0RF No Action clonazepam 0.5 mg tablet 0.5 mg PO DAILY insulin lispro 100 unit/mL solution 100 unit continuous subcutaneous infusion DIRECTED escitalopram oxalate 10 mg tablet 10 mg PO DIRECTED lamotrigine 100 mg tablet 100 mg PO DAILY bupropion HCl 150 mg tablet extended release 24 hr 150 mg PO DAILY sulfamethoxazole-trimethoprim 800-160 mg tablet 1 tablet PO Q12H 7 Days Qty: 14 0RF dextroamphetamine-amphetamine [Adderall XR] 20 mg capsule,extended release 24hr 20 mg PO DAILY ibuprofen 400 mg tablet 400 mg PO Q6H PRN (Reason: pain) Qty: 30 0RF acetaminophen [Tylenol] 325 mg capsule 325 mg PO Q6H PRN (Reason: pain) Qty: 30 0RF naproxen 375 mg tablet 375 mg PO BID Qty: 14 0RF Follow-up/Referrals: Sohail Garcia [Other] - 3 Days Stand Alone Forms: Work/School Release IP Time of Disposition: 09:24
[2024-07-13 09:05] VITALS: BP 124/82; PULSE 76; RESP 16; TEMP 36.8; O2SAT 100
--- OUTSIDE RECORDS SUMMARY | 2024-07-13 09:23 | XMS_ITS | Clinical Summary ---
Author Organization [facility] Address [address] [place] [address] Care Team Providers Care Fulling Machine Operator Name Role Phone Sohail Garcia MD Primary Care Provider [phone] Allergies No known active allergies Encounters Date Type Department Care Team Description 07/12/2024 7:04 AM CDT - 07/12/2024 7:[address] [facility] Emergency Room [place], [place] [id number] Jean Fonseca MD Facial Swelling Discharge Disposition: Home or Self Care (Routine Discharge) 07/12/2024 Travel from Last 3 Months Social History Tobacco Use Types Packs/Day Years Used Date Smoking Tobacco: Never Smokeless Tobacco: Never Tobacco Cessation:Counseling Given: Not Answered Alcohol Use Standard Drinks/Week Comments Never 0 (1 standard drink = 0.6 oz pur e alcohol) Comments No Sex and Gender Information Value Date Recorded Sex Assigned at Female 07/12/2024 6:54 AM CDT Legal Sex Female 6:48 AM CDT Gender Identity Not on file Sexual Orientation Not on file Last Filed Vital Signs Vital Sign Reading Time Taken Comments Blood Pressure 139/91 07/12/2024 6:51 AM CDT Pulse 85 07/12/2024 6:51 AM CDT Temperature 36.5 C (97.7 F) 07/12/2024 6:51 AM CDT Respiratory Rate 18 07/12/2024 6:51 AM CDT Oxygen Saturation 100% 07/12/2024 6:51 AM CDT Inhaled Oxygen Concentration - - Weight 88.5 kg (195 lb) 07/12/2024 6:51 AM CDT Height 162.6 cm (5' 4 ) 07/12/2024 6:51 AM CDT Body Mass Index 33.47 07/12/2024 6:51 AM CDT Plan of Treatment Health Maintenance Due Date Last Done Comments Cervical Cancer Screening Pa p Smear (Age 30 to 64) Every 3 Years 1993 Annual Physical 1996 Hepatitis C 08/23/2011 DTaP, Tdap and Td Vaccines ( 1 - Tdap) 2012 Hepatitis B Vaccines (1 of 3 - 19+ 3-dose series) 2012 Cervical Cancer Screening Pa p with HPV Testing (Age 30 to 64) Every 5 Years 08/23/2023 Cervical Cancer Screening with HPV 08/23/2023 COVID-19 Vaccine ( - 2023-2 5 season) 2023 HPV Vaccines Aged Out No longer eligi ble based on patient's age to complete this topic Meningococcal B Vaccine Aged Out No l onger eligible based on patient's age to complete this topic Meningococcal Vaccine Aged Out No roslyn carli eligible based on patient's age to complete this topic Pneumococcal Vaccine: Pediat rics (0 to 5 Years) and At-Risk Patients (6 to 49 Years) Aged Out No longer eligible b ased on patient's age to complete this topic RSV Immunizations Under 20 Months Aged Out No longer eligible based on patient's age to complete this topic Insurance [facility] Care Teams Fulling Machine Operator Relationship Specialty Start Date End Date Sohail Garcia MD [address] [place] [address] PCP - General FAMILY PRACTICE 07/12/24
--- OUTSIDE RECORDS SUMMARY | 2024-07-13 09:23 | XMS_ITS | Encounter Summary ---
Author Organization [facility] Address [address] [place] [address] Care Team Providers Care Lay Out Worker Name Role Phone Sohail Garcia MD Primary Care Provider [phone] Reason for Visit * Reason Comments Facial Swelling Encounter Details Date Type Department Care Team (Late st Contact Info) Description 07/12/2024 7:04 AM CDT - 07/12/2024 7:40 AM CDT Emergency [facility] Emergency Room [place], [place] [id number] Jean Fonseca MD [address] [place] [id number] Facial Swelling Discharge Disposition: Home or Self Care (Routine Discharge) Social History Tobacco Use Types Packs/Day Years [...] on file Sexual Orientation Not on file documented as of this encounter Last Filed Vital Signs Vital Sign Reading [...] Mass Index 33.47 07/12/2024 6:51 AM CDT documented in this encounter Functional Status * Calculated C-SSRS Risk Score (Lifetime/Recent) Answer Date of Assessment Author Status No Risk Indicated 07/12/2024 6:57 AM CDT Jeremy Tam RN Active * [place] Suicide Severity Rating Scale (Screener/Recent Self-Report) Question Answer Date of Assessment Author Status 1. Wish to be (Past 1 Month) No 07/12/2024 6:57 AM CDT Kelli Tam RN Act laura 2. Non-Specific Active Suicidal Thoughts (Past 1 Month) No 07/12/2024 6:57 AM CDT Kelli Tam RN Act laura 6. Suicidal Behavior (Lifetime) No 07/12/2024 6:57 AM CDT Kelli Tam RN Act laura documented as of this encounter Discharge Instructions * Discharge Instructions* Jean Fonseca MD - 07/12/2024 7:21 AM CDT Continue bactrim as prescribed * Attachments The following attachments cannot be sent through Care Everywhere. * Cellulitis (Skin Infection), Adult ED (L[place]) documented in this encounter ED Notes * Jean Fonseca MD - 07/12/2024 7:40 AM CDT Images from the original note were not included. Emergency Department Note Chief Complaint Patient presents with Facial Swelling The patient is a 28-year-old female who presents with right upper lip swelling. Reports she was seen at urgent care yesterday and was given Bactrim. She took 2 pills. She reports swelling is slightlyworse. No drainage. She does have a history of MRSA. No difficulty breathing. No difficulty opening mouth. No fevers. No chills. Hx obtained by patient MEDICATIONS: Prior to Admission medications Not on File PAST MEDICAL HISTORY: Past Medical History[1] PAST SURGICAL HISTORY: Past Surgical History[2] Vital 24 Hour Range Most Recent Value Temperature Temp Min: 97.7 ??F (36.5 ??C) Max: 97.7 ??F (36.5 ??C) 97.7 ??F (36.5 ??C) Pulse Pulse Min: 85 Max: 85 85 Respiratory Resp Min: 18 Max: 18 18 Blood Pressure BP Min: 139/91 Max: 139/91 (!) 139/91 Pulse Oximetry SpO2 Min: 100 % Max: 100 % 100 % O2 No data recorded Constitutional: Well developed, Well nourished, No acute distress, Non-toxic appearance. HEENT: Normocephalic, Atraumatic, Bilateral external ears normal, EOMI, Conjunctiva normal, No discharge.Oropharynx moist, Nose normal. Small swelling and erythema to right upper lip Respiratory: Normal breath sounds, No respiratory distress. Cardiovascular: Normal heart rate, Normal rhythm Extremities: Intact distal pulses, No edema Neurologic: Alert & oriented x 3, Normal motor function, Normal sensory function, No focal deficits noted. Medical Decision Making/ ED course: Swelling to upper lip-concern for cellulitis, possible early abscess. Patient has only taken 2 tablets of Bactrim. I do not feel this represents antibiotic failure. I donot feel patient needs imaging or labs at this time. I did discuss in detail with the patient that if she is still getting worse in 2 to 3 days that she needs to return to the emergency department. Follow-up instructions given. Medications - No data to display Clinical Impression Facial cellulitis (Primary) There are no discharge medications for this patient. Disposition: Discharge Follow-Up: [facility] Emergency Room [facility] [id number] In 2 days If symptoms worsen Please excuse any grammatical or spelling errors as this chart was likely documented using a dictation software. [1] Past Medical History: Diagnosis Date Diabetes mellitus (CMS/HCC HHS/HCC) Major depressive disorder, single episode, unspecified SVT (supraventricular tachycardia) (HHS/HCC) [2] Past Surgical History: Procedure Laterality Date ABDOMINAL SURGERY SECTION ENDOVAS NON-CARDIAC ABL CATH Jean Fonseca MD 07/12/24 [id number] * Kelli Tam RN - 07/12/2024 6:55 AM CDT Pt presents to the ER with c/o right upper lip swelling, redness, warm to touch noted, pt was seen yesterday at , given Bactrim, has had 2 doses, told to go to the ER if swelling worse or having more pain documented in this encounter Plan of Treatment Not on file documented as of this encounter Visit Diagnoses Diagnosis Facial cellulitis- Primary Cellulitis and abscess of face documented in this encounter Care Teams Lay Out Worker Relationship Specialty Start Date End Date Sohail Garcia MD [address] [place] [address] PCP - General FAMILY PRACTICE 07/12/24 documented as of this encounter
--- OUTSIDE RECORDS SUMMARY | 2024-07-13 09:23 | XMS_ITS | Encounter Summary ---
Author Organization [facility] Address [address] [place] [id number] Care Team Providers Care Skate Maker Name Role Phone Sohail Garcia MD Primary Care Provider [phone] Encounter Details Date Type Department Care Team (Latest Contact Info) Description 07/12/2024 Travel Social History Tobacco Use Types Packs/Day Years Used Date Smoking Tobacco: Never Smokeless Tobacco: Never Alcohol Use Standard Drinks/Week Comments Never 0 (1 standard drink = 0.6 oz pur e alcohol) Comments No Sex and Gender Information Value Date Recorded Sex Assigned at Female 07/12/2024 6:54 AM CDT Legal Sex Female 6:48 AM CDT Gender Identity Not on file Sexual Orientation Not on file documented as of this encounter Functional Status * Calculated C-SSRS Risk Score (Lifetime/Recent) Answer Date of Assessment Author Status No Risk Indicated 07/12/2024 6:57 AM CDT Jeremy Tam RN Active * [place] Suicide Severity Rating Scale (Screener/Recent Self-Report) Question Answer Date of Assessment Author Status 1. Wish to be (Past 1 Month) No 07/12/2024 6:57 AM CDT Kelli Tam RN Act laura 2. Non-Specific Active Suicidal Thoughts (Past 1 Month) No 07/12/2024 6:57 AM LENOT Kelli Tam RN Act laura 6. Suicidal Behavior (Lifetime) No 07/12/2024 6:57 AM LENOT Kelli Tam RN Act laura documented as of this encounter Plan of Treatment Not on file documented as of this encounter Visit Diagnoses Not on filedocumented in this encounter Care Teams Skate Maker Relationship Specialty Start Date End Date Sohail Garcia MD [address] [place] [address] PCP - General FAMILY PRACTICE 07/12/24 documented as of this encounter
== END 2024-07-13 09:27 | disposition home or self-care (01) ==
PROVIDERS: Emergency Provider Nurse Practitioner Family
DX: K13.0 Diseases of lips (principal); E10.9 Type 1 diabetes mellitus without complications; Z79.4 Long term (current) use of insulin; F31.81 Bipolar II disorder; Z87.891 Personal history of nicotine dependence
CPT/HCPCS: 99213; G0463

== ENCOUNTER 2024-09-26 13:20 | Emergency (ER) | payer OTHER, SELFPAY ==
[2024-09-26 13:33] VITALS: BP 119/72; PULSE 88; RESP 18; TEMP 36.9; O2SAT 100
--- OUTSIDE RECORDS SUMMARY | 2024-09-26 13:43 | XMS_ITS | Data Portability ---
Author Organization [employer] , [facility] Address [address] [place] [address] Assessment No assessment recorded. 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, [place], [address], 09/21/2024 12:17:27 Referral None recorde d. Procedures None recorde d. Surgeries None recorde d. Imaging None recorde d. Medication Orders None recorde d. Patient TargetsNo targets recorded. Patient Instructions Encounter Date Encounter Id Patient Instructions Last Modified By Organization Details Last Modified Time 09/15/2024 [id number] A healthy lifestyle: care instructions Not available 09/20/2024 06:59:09 Following the [employer] Food Guide: Care Instructions Not available 09/20/2024 06:59:09 exercise program : getting started Not available 09/20/2024 06:59:09 learning about breast cancer screening Not available 09/20/2024 06:59:09 Reason for Referral None Reported. Results Created Date Observation Date Name Description Value Unit Range Abnormal Flag Note LastModifiedBy Organization Detail LastModifiedTime 09/17/1909/16/2024 HPV HIGH RISK HPV high risk Negati ve negati ve normal The HPV High Risk assay is inten ded for use as co-te sting with cytol ogy and not as a subst itute for regul ar cervi brian cytol ogy scree carmen. This assay is not inten ded for use as a scree carmen devic e for women under age 30 with migue l cervi brian cytol ogy. Not Available [facility] [address] [place], [address], 09/16/2024 14:26:15 09/16/1909/21/2024 THINP REP TIS PAP clinical information: normal None given Not Available [facility] [address] [address] [place], [address], 09/21/2024 12:17:27 09/16/19 25 09/21/2024 THINP REP TIS PAP LMP: normal NONE GIVEN Not Available [facility] [address] [address] [place], [address], 09/21/2024 12:17:27 09/16/19 25 09/21/2024 THINP REP TIS PAP prev. Pap: normal NONE GIVEN Not Available [facility] [address] [address] [place], [address], 09/21/2024 12:17:27 09/16/19 25 09/21/2024 THINP REP TIS PAP prev. BX: normal NONE GIVEN Not Available [facility] [address] [address] [place], [address], 09/21/2024 12:17:27 09/16/19 25 09/21/2024 THINP REP TIS PAP source: normal None given Not Available [facility] [address] [address] [place], [address], 09/21/2024 12:17:27 09/16/1909/21/2024 THINP REP TIS PAP statement of adequacy: normal Satis facto ry for evalu ation . Endoc ervic al/tr ansfo rmati on zone compo nent prese nt. Age and/o r menst rual statu s not provi ded Not Available [address] [address] [place], [address], 09/21/2024 12:17:27 09/16/1909/21/2024 THINP REP TIS PAP interpretati on/result: normal Cytol ogy Resul ts: Negat laura for intra epith elial lesio n or malig lillie . Not Available [address] [address] [place], [address], 09/21/2024 12:17:27 09/16/1909/21/2024 THINP REP TIS PAP comment: normal This Pap test has been evalu ated with compu ter chanelle keyla techn ology . Not Available [address] [address] [place], [address], 09/21/2024 12:17:27 09/16/1909/21/2024 THINP REP TIS PAP cytotechnolo gist: normal JAF, CT( CP) CT Scree carmen Locat ion: [address] [address] [place] [address] Not Available [address] [address] [place], [address], 09/21/2024 12:17:27 09/16/1909/21/2024 THINP REP TIS PAP comment EXPLA NATOR Y NOTE: The Pap is a scree carmen test for cervi brian cance r. It is not a diagn ostic test and is subje ct to false negat laura and false posit laura resul ts. It is most relia ble when a satis facto ry sampl e, regul mai obtai jayne, is submi tted with relev ant clini brian findi ngs and histo ry, and when the Pap resul t is evalu ated along with histo brianda and curre nt clini brian infor kizna jacobo Not Available [employer] [facility] [address], [place], [address], 09/21/2024 12:17:27 Result Notes None recorded. Procedures Surgical History Date Name Laterality Status Provider Name and Address Organization Details Recorded Time Date of Last Pap Smear completed [facility] 09/15/2024 15:31:14 Heart surgery completed [facility] 09/15/2024 15:31:15 C Section completed [facility] 09/15/2024 15:31:15 Imaging Results None recorded. Procedure Notes None recorded. Medical Equipment None Reported. Allergies No known drug allergies Medications Name Sig Start Date Stop Date Status Note LastModified by Organization Details LastModified Time lamotrigine 200 mg tablet TAKE 1 TABLET BY MOUTH DAILY active Not Available Not Available No t Available clindamycin HCl 300 mg capsule TAKE 1 CAPSULE BY MOUTH EVERY 8 HOURS FOR 10 DAYS 09/15 completed Not Available Not Available Not Available clonazepam 0.5 mg tablet TAKE 1 TABLET BY MOUTH TWICE DAILY NEEDED 09/15 completed Not Available Not Available Not Available Lantus U-100 Insulin 100 unit/mL subcutaneou s solution INJECT 30 UNITS SUBCUTANE OUS NIGHTLY AT BEDTIME active Not Available Not Available No t Available sulfamethox azole 800 mg-trimetho prim 160 mg tablet TAKE 1 TABLET BY MOUTH EVERY 12 HOURS FOR 7 DAYS 09/15 completed Not Available Not Available Not Available lidocaine HCl 2 % mucosal solution APPLY TOPICALLY AFFECTED MUCOSAL ARE THREE TIMES DAILY NEEDED FOR 7 DAYS 09/15 completed Not Available Not Available Not Available mupirocin 2 % topical ointment APPLY TOPICALLY TO THE AFFECTED AREA TWICE DAILY 09/15 completed Not Available Not Available Not Available fluvoxamine 50 mg tablet TAKE 1 TABLET BY MOUTH TWICE DAILY active Not Available Not Available No t Available insulin lispro (U-100) 100 unit/mL subcutaneou s solution INJECT 70 UNITS UNDER THE SKIN DAILY active Not Available Not Available No t Available naproxen 500 mg tablet TAKE 1 TABLET BY MOUTH TWICE DAILY NEEDED 09/15 completed Not Available Not Available Not Available lisdexamfet amine 50 mg capsule TAKE 1 CAPSULE BY MOUTH ONCE DAILY IN THE MORNING active Not Available Not Available No t Available lisdexamfet amine 30 mg capsule TAKE 1 CAPSULE BY MOUTH DAILY IN THE MORNING 09/15 completed Not Available Not Available Not Available lamotrigine ER 200 mg tablet,exte nded release 24 hr TAKE 1 TABLET BY MOUTH DAILY active Not Available Not Available No t Available Dexcom G7 Sensor device USE DIRECTED. CHANGE EVERY 10 DAYS active Not Available Not Available No t Available Omnipod 5 G6-G7 Pods (Gen 5) subcutaneou s cartridge 1 EVERY OTHER DAY active Not Available Not Available No t Available Vitals Date Recorded Body height Body mass index (BMI) Body weight Systolic And Diastolic Provider Name and Address Organization Details Last Updated DateTime 09/15/2024 162.56 cm 33.6 kg/m2 11911.67 g 118/78 mm[Hg] Thalia Bautista [employer] [facility] 09/15/2024 15:43:04 Social History Question Answer Notes LastModified by Organizat ion Details LastModified Time Tobacco Smoking Status Former Smoker Thalia Michele vidal, [employer] [facility] 09/15/2024 15:40:06 If You Are , What Was Your Level Of Alcohol Consumption Prior To ? None [email or web address] Information not available 09/15/2024 How Many Years Have You Consumed Alcohol? 10 [email or web address] Information not available 09/15/2024 Are You Blind Or Do You Have Difficulty Seeing? No [email or web address] Information not available 09/15/2024 Are You Deaf Or Do You Have Serious Difficulty Hearing? No [email or web address] Information not available 09/15/2024 What Type Of Diet Are You Following? REGULAR [email or web address] Information not available 09/15/2024 What Is The Highest Grade Or Level Of School You Have Completed Or The Highest Degree You Have Received? [id number] Information not available 09/15/2024 When Did You Quit Smoking? 6-10yearssince lastcigarette [email or web address] Information not available 09/15/2024 How Many Children Do You Have? 3 [email or web address] Information not available 09/15/2024 Are There Any Occupational Health Risks Where You Work? 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 [email or web address] Information not available 09/15/2024 Are You Sexually Active? Yes [email or web address] Information not available 09/15/2024 At What Age Did You Start Smoking Tobacco? 16 [email or web address] Information not available 09/15/2024 How Much Tobacco Do You Smoke? 0.5 PPD [email or web address] Information not available 09/15/2024 What Types Of Sporting Activities Do You Participate In? I Have Kids... [email or web address] Information not available 09/15/2024 How Many Years Have You Smoked Tobacco? 3 [email or web address] Information not available 09/15/2024 Sex: Unknown Functional Status Question Answer Note LastModified by Organizat ion Details LastModified Time Do you use any illicit or recreational drugs? No [email or web address] Information not available 09/15/2024 Do you or have you ever used any other forms of tobacco or nicotine? No Information not available 09/15/2024 What is your level of alcohol consumption? Occasional [email or web address] Information not available 09/15/2024 Are you currently employed? Yes [email or web address] Information not available 09/15/2024 What is your exercise level? Occasional [email or web address] Information not available 09/15/2024 Mental Status None recorded. Family History Relationship Description Onset Age of this Age Resolved Age Notes LastModified by Organization Details LastModified Time Mother Endometriosi s (clinical) [email or web address] Not available 15:31:14 Mother Diabetes mellitus [email or web address] Not available 2024 15:31:14 Unspecified Relation Malignant tumor of breast Not available 2024 15:31:14 Medical History Condition Response Depression Y ADD/ADHD Y Anxiety Disorder Y Diabetes (insulin dependent) Y Gynecological History Statement/Question Response Flow Moderate Date of LMP 08/21/2024 Frequency of Cycle (Q days) 28-31 Date of Last Pap Smear 09/16/2022 Duration of Flow (days) Current Control Method Partner Vas ectomy Age at Menarche 10 Obstetrics History GPAL:G 4 P 1 2 2 3 Type Value Multiple Births 1 Full Term 1 Spontaneous 2 Premature 2 Living 3 Ectopics 0 Total 4 Past Encounters Encounter ID Performer Location Encounter Start Date Encounter Closed Date Diagnosis/Indication Diagnosis SNOMED-CT Code Diagnosis ICD10 Code Diagnosis Note [id number] JENNY HERNANDEZ [facility] [address] [place] [address] 09/15/2024 15:07:00 09/20/2024 12:44:48 Gynecologic examination 78988244 Z01.419 Screening for malignant neoplasm of cervix 199291964 Z12.4 ASCCP guidelines reviewed with pt. Pap collected and sent. Further POC pending lab result review. Pt states understand ing of POC. Screening for malignant neoplasm of breast 934222926 Z12.39 Pt educated on breast cancer screening guidelines . Denies any concerns with breast at this time. Denies any lumps, bumps, nipple discharge or unusual soreness. Pt states understand ing of POC. Depression screening 171 173266 Z13.31 see intake form Pain in pelvis 43787961 R10.2 -Pt had US completed on 09-09 by PCP showed bilateral ovarian cyst and it was recommende d to have f/u US in 6 weeks.-Edu cation provided on benign nature of ovarian cyst, family hx reviewed as well as associated symptoms.- Pt will RTC in 6 weeks for TVUS.- PA case sent. Health Concerns Section Related Observation LastModified by Organization Detai ls LastModified Time None Recorded Concern Status LastModified by Organization Details LastModified Time None Recorded Advance Directives Directive None Recorded Payers Insurance Date Sequence Insurance Name Policy Number Policy Partida Covered Member ID Partida Member ID Guarantor Name 09/20/2024 1 [facility] [id number] Jammie Man Anselmo [id number] Jammie Deshpande Notes Date Note Type Note Provider Name and Address Organization Details Recorded Time 09/15/2024 text/html Jammie is a new patient. She is 29 years old here to establish care and here for her annual exam.Last pap: 09-16-2022 with PCP, denies any hx of abnormal pap smears.LMP was [phone] control is partner has a vasectomy JENNY HERNANDEZ 1953 [facility], [place], [address], [facility] 09/20/2024 06:59:11 OBGyn Episode Ob Episode Information Episode Created Date Number of Fetuses Patient Bloodtype Patient rh Status Prepregnancy Weight lbs Domestic Partner Domestic Partner Phone Father Name Hand Former Helper Status 09/16/19 25 2 CLOSED Fetus Data First Name Last Name Admitted to NICU Weight (g) Sex Living Outcome Pediatric Complications Fetus ID Race Codes Race Delivery Type 907.184 M Prematur e [id number] Repeat 907.184 F Prematur e [id number] Repeat David Calculation Initial David Date Initial Exam Date Initial Exam Provider Initial Ultrasound Date Last Menstrual Period Date Ultra Sound Weeks Gestation 0 Eighteen To Twenty Week David Update Ultra Sound Date Fundal Height At Umbil Quickening Date Ultra Sound Latest Weeks Gestation Final David Confirmed By Final David Confirmed Date Final David Date Ultra Sound Latest Days Gestation 0 0 Menstrual History Last Menstrual Date Menses Monthly On Bcp Conception Prior Menses Frequency Hcg Plus Date Menarche Onset Age Delivery Information Delivery Date Delivery Type Labor Anesthesia Weeks Gestation Incision Type Labor Labor Length Hrs Delivered By Post Complications Tubal Sterilization Discharge Date Comments 2 26 Discharge Information Feeding Method Contraceptive Method Maternal HG B and HCT Levels Ob Episode Information Episode Created Date Number of Fetuses Patient Bloodtype Patient rh Status Prepregnancy Weight lbs Domestic Partner Domestic Partner Phone Father Name Hand Former Helper Status 09/16/19 25 1 CLOSED Fetus Data First Name Last Name Admitted to NICU Weight (g) Sex Living Outcome Pediatric Complications Fetus ID Race Codes Race Delivery Type 3288.54 2 M Full Term [id number] Primary David Calculation Initial David Date Initial Exam Date Initial Exam Provider Initial Ultrasound Date Last Menstrual Period Date Ultra Sound Weeks Gestation 0 Eighteen To Twenty Week David Update Ultra Sound Date Fundal Height At Umbil Quickening Date Ultra Sound Latest Weeks Gestation Final David Confirmed By Final David Confirmed Date Final David Date Ultra Sound Latest Days Gestation 0 0 Menstrual History Last Menstrual Date Menses Monthly On Bcp Conception Prior Menses Frequency Hcg Plus Date Menarche Onset Age Delivery Information Delivery Date Delivery Type Labor Anesthesia Weeks Gestation Incision Type Labor Labor Length Hrs Delivered By Post Complications Tubal Sterilization Discharge Date Comments 7 Discharge Information Feeding Method Contraceptive Method Maternal HG B and HCT Levels
--- OUTSIDE RECORDS SUMMARY | 2024-09-26 13:44 | XMS_ITS | Clinical Summary ---
Author Organization [facility] Address [address] [place] [id number] Care Team Providers Care Grab Setter Name Role Phone Sohail Wilson MD Primary Care Provider [phone] Sohail Wilson MD Unavailable [phone] Allergies No known active allergies Medications lamoTRIgine (LAMICTAL) 200 MG tablet Take 1 tablet (200 mg total) by mouth daily. 04/21/19 24 Active insulin aspart (NOVOLOG) 100 UNIT/ML injection (PEN) Inject 1-15 Units into the skin see administration instructions. 1U for every 10g carbs, 1U for every 50>150. TID w/ meals. Active clonazePAM (KLONOPIN) 0.5 MG tablet Take 1 tablet (0.5 mg total) by mouth as needed. 09/17/19 24 Active VYVANSE 30 MG capsule Take 1 capsule (30 mg total) by mouth daily. 09/18/19 24 Active insulin glargine (LANTUS) 100 UNIT/ML injection (VIAL)Indication s:Type 1 diabetes mellitus without complication ([facility]) Inject 30 Units into the skin nightly at bedtime. 10 mL 2 10/07/19 24 Active insulin lispro (HUMALOG) 100 UNIT/ML patient supplied PUMP Inject into the skin continuous. Active Active Problems Problem Noted Date Diagnosed Date Cellulitis of lip 07/15/2024 Blood blister 05/30/2024 Fatigue, unspecified type 10/07/2023 Cyst of right ovary 08/11/2023 Type 1 diabetes mellitus wit hout complication ([facility]) 08/11/2023 Class 2 severe obesity due t o excess calories with serious comorbidity and body mass index (BMI) of 35.0 to 35.9 in adult 08/11/2023 Bipolar 2 disorder ([facility]) 08/11/2023 Systolic murmur 08/11/2023 Encounters Date Type Department Care Team Description 09/26/[address] [address] Sohail Wilson MD Information 09/09/2024 Results Follow-Up [address] [address] Lauren Osorio MD US PELVIC NON OB COMP TA+TV 09/08/2024 4:06 PM CDT - 09/08/2024 11:59 PM CDT Hospital Encounter [facility] Ultrasound [address] [place] [address] Sohail Wilson MD Discharge Disposition: Home or Self Care (Routine Discharge) 09/08/2024 Travel 08/30/2024 11:05 AM CDT - 08/30/2024 11:59 PM CDT Hospital Encounter [facility] Laboratory [address] [place] [address] Sohail Wilson MD Discharge Disposition: Home or Self Care (Routine Discharge) 08/30/2024 8:40 AM CDT Office Visit [address] [address] Sohail Wilson MD Diabetes 08/30/2024 Results Follow-Up [address] [address] Sohail Wilson MD LIPID PANEL, COMPREHENSIVE METABOLIC PANEL, HEMOGLOBIN, GLYCOSYLATED, Additional followed-up results: 3 08/30/2024 Travel 07/20/2024 MyChart Message Enc [address] [address] Sohail Wilson MD Antibiotics 07/15/2024 1:20 PM CDT Office Visit [place] [address] [place] [address] Sohail Wilson MD ER F/U (SUE 07/12/2024 ; lip swelling. Patient states abx have helped the swelling a little, lesion busted open last night and is now leaking during the day.) 07/15/2024 Travel 07/12/2024 7:04 AM CDT - 07/12/2024 7:40 AM CDT Emergency [facility] [place] [address] Jean Fonseca MD Facial Swelling Discharge Disposition: Home or Self Care (Routine Discharge) 07/12/2024 Travel from Last 3 Months Immunizations Immunization Administration Dates Next Due Fluzone (IIV3, Trivalent, 0. 5 ML Prefilled Syringe) 05/30/2024 HPV4 (Gardasil) 09/06/2007,05/04/2007,02/02/2007 Hepatitis A (Havrix 720 [address].U) 02/02/2007, 006 Hepatitis B(Engerix B Adult) 07/15/2024,05/31/19 25 Influenza (Generic) 02/28/2020, 5,01/02/2012,01/11 Influenza Adult (Generic) 02/03/2020 Meningococcal (Generic) 01/02/2012,02/02/2007 PFIZER COVID-19 (12+) MRNA, LNP-S, PF, KRISTY-SUCROSE, 30 MCG/0.3 ML (COMIRNATY) 05/30/2024 Pneumococcal (Prevnar 20) 08/11/2023 Tdap (Generic) 11/05/2020,01/22/2017,09/08/2005 Family History Relation Status Comments Father Alive Mother Alive Social History Tobacco Use Types Packs/Day Years Used Date Smoking Tobacco: Never Passive Smoke Exposure: Past Smokeless Tobacco: Never Tobacco Cessation:Counseling Given: No Alcohol Use Standard Drinks/Week Comments Never 0 (1 standard drink = 0.6 oz pur e alcohol) PHQ-2 Answer Date Recorded Patient Health Questionnaire-2 Score 0 05/30/2024 Comments No Sex and Gender Information Value Date Recorded Sex Assigned at Female 05/30/2024 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 Legal Sex Female 2:28 PM CDT Gender Identity Female 07/15/2024 1:22 PM CDT Sexual Orientation Not on file Last Filed Vital Signs Vital Sign Reading Time Taken Comments Blood Pressure 112/78 07/15/2024 1:23 PM CDT Pulse 92 07/15/2024 1:23 PM CDT Temperature 36.8 C (98.3 F) 07/15/2024 1:23 PM CDT Respiratory Rate 18 07/12/2024 6:51 AM CDT Oxygen Saturation 100% 07/15/2024 1:23 PM CDT Inhaled Oxygen Concentration - - Weight 91.2 kg (201 lb) 07/15/2024 1:23 PM CDT Height 162.6 cm (5' 4) 07/15/2024 1:23 PM CDT Body Mass Index 34.5 07/15/2024 1:23 PM CDT Plan of Treatment Upcoming Encounters Date Type Department Care Team (Late st Contact Info) Description 12/02/2024 7:00 AM CDT Office Visit [facility] Family Medicine - [place] [address] [place] [address] [place] [address] [place] [address]. [place] [phone] Health Maintenance Due Date Last Done Comments Cervical Cancer Screening Pap Smear (Age 30 to 64) Every 3 Years 1993 Diabetes: Retinopathy Eye Exam 08/23/2011 Cervical Cancer Screening Pap with HPV Testing (Age 30 to 64) Every 5 Years 08/23/2023 04/17/2021 Cervical Cancer Screening with HPV 08/23/2023 Hepatitis B Vaccines (3 of 3 - 19+ 3-dose series) 11/30/2024 07/15/2024, 05/30/2024 Hemoglobin A1C 03/01/2025 08/30/2024, 05/2024, 06/08/2024, Additional history exists Annual Physical 08/30/2025 08/30/2024, 08/11/2023 Kidney Health Evaluation 08/30/2025 08/30/2024 Lipid Panel 08/30/2025 08/30/2024, 07/29, 04/15/2020 DTaP, Tdap and Td Vaccines (4 - Td or Tdap) 11/05/2030 11/05/2020, 01/22/2017, 09/08/2005 HPV Vaccines Completed 09/06/2007, 07/2007, 02/02/2007 Meningococcal Vaccine Aged Out 01/02/2012, 007 No longer eligible based on patient's age to complete this topic Pneumococcal Vaccine: Pediatrics (0 to 5 Years) and At-Risk Patients (6 to 49 Years) Completed 08/11/2023 Hepatitis C Completed 08/19/2023 COVID-19 Vaccine Completed 05/30/2024, , 06/19/2020, Additional history exists PHQ-2 (Physician [place] [facility]) Completed 08/30/2024 Meningococcal B Vaccine Aged Out No l onger eligible based on patient's age to complete this topic RSV Immunizations Under 20 Months Aged Out No longer eligible based on patient's age to complete this topic Procedures Procedure Name Priority Date/Time Associated Diagnosis Comments US PELVIC NON OB COMP TA+TV RENETTA 09/08/2024 5:09 PM CDT Cyst of right ovary TSH W/REFLEX Routine 08/30/2024 11:25 AM CDT Type 1 diabetes mellitus without complication ([facility] HHS/HCC) CBC W/DIFF AUTOMATED Routine 08/30/2024 11:25 AM CDT Type 1 diabetes mellitus without complication (CMS/HCC HHS/HCC) HEMOGLOBIN, GLYCOSYLATED Routine 08/30/2024 11:25 AM CDT Type 1 diabetes mellitus without complication ([facility] HHS/HCC) COMPREHENSIVE METABOLIC PANEL Routine 08/30/2024 11:25 AM CDT Type 1 diabetes mellitus without complication (CMS/HCC HHS/HCC) LIPID PANEL Routine 08/30/2024 11:25 AM CDT Type 1 diabetes mellitus without complication (CMS/HCC HHS/HCC) ALBUMIN URINE RANDOM W/CREATININE Routine 08/30/2024 11:22 AM CDT Type 1 diabetes mellitus without complication (CMS/HCC HHS/HCC) HEMOGLOBIN, GLYCOSYLATED Routine 08/30/2024 Type 1 diabetes mellitus without complication (CMS/HCC HHS/HCC) COLLECT.CAPILLARY (FNGR,HEEL,EAR) Routine 08/30/2024 Type 1 diabetes mellitus without complication (CMS/HCC HHS/HCC) HEPATITIS PANEL,ACUTE Routine 08/19/2023 7:36 AM CDT Encounter for hepatitis C screening test for low risk patient OUTSIDE CYTOPATH CERV/VAG INTERPRET (PAP) 04/17/2021 from Last 3 Months or Most Recently Relevant to Health Maintenance Results * US PELVIC NON OB COMP TA+TV (09/08/2024 5:09 PM CDT) Anatomical Region Laterality Modality Pelvis Ultrasound 09/09/2024 12:1 4 PM CDT Impressions 09/09/2024 12:29 PM CDT IMPRESSION: Bilateral complex cystic/solid ovarian lesions. Recommend follow-up ultrasound in 6 weeks.. Thickened endometrium without mass. May be due to phase of menstrual cycle. Minimal endometrial fluid. Ordered By: SOHAIL WILSON Interpreted By: Jessie Nguyen, 09/09/2024 12:14 PM Narrative 09/09/2024 12:29 PM CDT [facility] [address] [place] [address] EXAMINATION: US PELVIC NON OB COMP TA+TV EXAM DATE: 09/08/2024 4:22 PM COMPARISON STUDIES: 09/21/2023 CLINICAL HISTORY: right ovarian cyst, RLQ pain . Left lower quadrant pain for 2 weeks. Prior endometrioma removal from region of scar.. LMP 08/21/2024 FINDINGS: Real time ultrasound examination performed by the counter pocket sewer of the pelvis through transabdominal and transvaginal approach. The uterus demonstrate normal shape and configuration without evidence of focal lesions. Measures 8.9 x 5.1 x 5.7 cm. with an endometrial lining of 1.26 cm. . No endometrial mass. Minimal endometrial fluid. No abnormal color flow to the endometrium.. The right ovary measures 4.2 x 4.2 x 4.5 cm . Contains a complex appearing cystic/solid lesion without color flow. Measures 3.5 x 3.3 x 4.1 cm.. Normal color flow Doppler with spectral and waveform analysis.. The left ovary measures 3.3 x 1.9 x 3.2 cm .. Contains fairly well-defined hypoechoic complex cyst/solid lesion with color flow. Measures 1.5 x 1.4 x 1.4 cm.. Normal color flow Doppler with spectral and waveform analysis. Left ovary best seen transabdominally. No free fluid noted in the cul-de-sac. Procedure Note Osvaldo Nguyen MD - 09/09/2024 [facility] [address] [place] [address] EXAMINATION: US PELVIC NON OB COMP TA+TV EXAM DATE: 09/08/2024 4:22 PM COMPARISON STUDIES: 09/21/2023 CLINICAL HISTORY: right ovarian cyst, RLQ pain . Left lower quadrantpain for 2 weeks. Prior endometrioma removal from region of C-sectionscar.. LMP 08/21/2024 FINDINGS: Real time ultrasound examination performed by the counter pocket sewer of thepelvis through transabdominal and transvaginal approach. The uterus demonstrate normal shape and configuration without evidence offocal lesions. Measures 8.9 x 5.1 x 5.7 cm. with an endometrial lining of 1.26 cm. . No endometrial mass. Minimalendometrial fluid. No abnormal color flow to the endometrium.. The right ovary measures 4.2 x 4.2 x 4.5 cm . Contains a complex appearingcystic/solid lesion without color flow. Measures 3.5 x 3.3 x 4.1 cm..Normal color flow Doppler with spectral and waveform analysis.. The left ovary measures 3.3 x 1.9 x 3.2 cm .. Contains fairlywell-defined hypoechoic complex cyst/solid lesion with color flow.Measures 1.5 x 1.4 x 1.4 cm.. Normal color flow Doppler with spectral andwaveform analysis. Left ovary best seen transabdominally. No free fluid noted in the cul-de-sac. IMPRESSION: Bilateral complex cystic/solid ovarian lesions. Recommend follow-upultrasound in 6 weeks.. Thickened endometrium without mass. May be due to phase of menstrualcycle. Minimal endometrial fluid. Ordered By: SOHAIL WILSON Interpreted By: Jessie Nguyen, 09/09/2024 12:14 PM us Sohail Wilson MD ULTRASOUND Final Result * TSH W/REFLEX (08/30/2024 11:25 AM CDT) TSH 0.715 0.358 - 3.74 uIU/ML 08/30/2024 1:33 PM CDT [facility] Comment: HIGH DOSES OF BIOTIN MAY INTERFERE WITH THIS TEST RESULT. CORRELATION TO CLINICAL HISTORY AND PRESENTATION RECOMMENDED. FREE T4 NOT INDICATED 08/30/2024 11:2 5 AM CDT Sohail Wilson MD LABORATORY Final Result [facility] [address] [place] [address], [place] [phone] * (ABNORMAL) HEMOGLOBIN, GLYCOSYLATED (08/30/2024 11:25 AM CDT) Only the most recent of2 resultswithin the time period is included. HGB A1C 7.2(H) <5.7 % 08/30/2024 1:48 PM CDT [facility] Comment: ADA GUIDELINES 2010 5.7 TO 6.4% INCREASED RISK OF DIABETES > OR = 6.5% CONSISTENT WITH DIABETES ESTIMATED AVG GLUCOSE 160 mg/dL 08/30/2024 1:48 PM CDT [facility] 08/30/2024 11:2 5 AM CDT Sohail Wilson MD LABORATORY Final Result [facility] [address] [place] [address], [place] [phone] * (ABNORMAL) COMPREHENSIVE METABOLIC PANEL (08/30/2024 11:25 AM CDT) GLUCOSE 109(H) 70 - 99 MG/DL 08/30/2024 1:33 PM CDT [facility] BUN 12 7 - 18 MG/DL 08/30/2024 1:33 PM CDT [facility] CREATININE S/P/B 0.86 0.55 - 1.02 MG/DL 08/30/2024 1:33 PM CDT [facility] SODIUM S/P/B 139 136 - 145 MMOL/L 08/30/2024 1:33 PM CDT [facility] POTASSIUM S/P/B 4.1 3.5 - 5.1 MMOL/L 08/30/2024 1:33 PM CDT [facility] CHLORIDE S/P/B 108 97 - 115 MMOL/L 08/30/2024 1:33 PM CDT [facility] CO2 24.0 21 - 32 MMOL/L 08/30/2024 1:33 PM CDT [facility] CALCIUM S/P/B 9.4 8.5 - 10.1 MG/DL 08/30/2024 1:33 PM CDT [facility] BILIRUBIN TOTAL S/P/B 0.4 0.2 - 1.2 MG/DL 08/30/2024 1:33 PM CDT [facility] Comment: THIS ASSAY IS NOT RECOMMENDED FOR PATIENTS UNDERGOING TREATMENT WITH ELTROMBOPAG DUE TO THE POTENTIAL FOR FALSELY ELEVATED RESULTS. TOTAL PROTEIN S/P/B 7.5 6.4 - 8.2 G/DL 08/30/2024 1:33 PM CDT [facility] ALBUMIN S/P/B 3.9 3.4 - 5.0 G/DL 08/30/2024 1:33 PM CDT [facility] AST 10(L) 15 - 37 U/L 08/30/2024 1:33 PM CDT [facility] ALT 18 14 - 55 U/L 08/30/2024 1:33 PM CDT [facility] ALKALINE PHOSPHATASE S/P/B 96 50 - 136 U/L 08/30/2024 1:33 PM CDT [facility] ANION GAP 7.0 2 - 10 MMOL/L 08/30/2024 1:33 PM T [facility] BUN CREATININE RATIO 14.0 6 - 26 08/30/2024 1:33 PM T [facility] A/G RATIO 1.1 1.0 - 2.0 RATIO 08/30/2024 1:33 PM T [facility] GFR ESTIMATE >90 >90 ML/MIN/1.7 3 M2 08/30/2024 1:33 PM T [facility] Comment: NOTE: eGFR is not calculated for patients <18 years of age or gender unknown. This is an estimated GFR calculation using the new CKD EPI creatinine equation without race and so does not require a correction factor for race. This estimated GFR should not be used for calculating drug doses. 08/30/2024 11:2 5 AM CDT Sohail Wilson MD LABORATORY Final Result Performing Organization Address [facility]/ZIP Co de Phone Number [facility] [address] [place] [address], * LIPID PANEL (08/30/2024 11:25 AM CDT) CHOLESTEROL 137 <200 MG/DL 08/30/2024 1:33 PM CDT [facility] TRIGLYCERIDES 56 <150 MG/DL 08/30/2024 1:33 PM CDT [facility] HDL 62 >40.0 MG/DL 08/30/2024 1:33 PM CDT [facility] LDL (CALCULATED) 64 <100 MG/DL 08/31/19 1:33 PM CDT [facility] NON HDL CHOLESTEROL 75 <130 MG/DL 08/30 1:33 PM CDT [facility] CHOL/HDL RATIO 2.2 0.0 - 4.5 08/30/2024 1:33 PM CDT [facility] VLDL CALCULATION 11 5 - 55 MG/DL 08/30/2024 1:33 PM CDT [facility] LIPID INTERPRETATION 08/30/2024 1:33 PM CDT [facility] Comment: NIH CONCENSUS REPORT RECOMMENDATIONS: ADULT CHILD LOW RISK: CHOLESTEROL <200 <170 TRIGLYCERIDE <150 --- HDL >=60 --- LDL <100 <110 BORDERLINE: CHOLESTEROL 200-239 170-199 TRIGLYCERIDE 150-199 --- HDL 40-59 --- LDL 100-159 110-129 HIGH RISK: CHOLESTEROL >=240 >=200 TRIGLYCERIDE >=200 --- HDL <40 --- LDL >=160 >=130 08/30/2024 11:2 5 AM CDT Sohail Wilson MD LABORATORY Final Result [facility] [address] [place] [address], * CBC W/DIFF AUTOMATED (08/30/2024 11:25 AM CDT) [facility] WBC 5.79 4.5 - 11.0 x10'3/uL 08/30/2024 1:05 PM CDT [facility] RBC 4.63 4.20 - 5.40 x10'6/uL 08/30/2024 1:05 PM CDT [facility] HGB 12.7 12.0 - 16.0 G/DL 08/30/2024 1:05 PM CDT [facility] HCT 39.6 38.0 - 48.0 % 08/30/2024 1:05 PM CDT [facility] MCV 85.5 81.0 - 99.0 FL 08/30/2024 1:05 PM CDT [facility] MCH 27.4 27.0 - 31.0 PG 08/30/2024 1:05 PM CDT [facility] MCHC 32.1 32.0 - 36.0 G/DL 08/30/2024 1:05 PM CDT [facility] RDW 13.1 11.5 - 14.5 % 08/30/2024 1:05 PM CDT [facility] PLT 368 130 - 400 x10'3/uL 08/30/2024 1:05 PM CDT [facility] MPV 9.9 9.3 - 12.2 FL 08/30/2024 1:05 PM CDT [facility] DIFFERENTIAL TYPE AUTOMATED DIFFERENTIAL 08/30/2024 1:05 PM CDT [facility] NEUTROPHILS % 56.1 % 08/30/2024 1:05 PM CDT [facility] LYMPHOCYTES % 34.2 % 08/30/2024 1:05 PM CDT [facility] MONOCYTES % 6.6 % 08/30/2024 1:05 PM CDT [facility] EOSINOPHILS 2.1 % 08/30/2024 1:05 PM CDT [facility] BASOPHILS 0.7 % 08/30/2024 1:05 PM CDT [facility] IMMATURE GRANS % 0.3 % 08/31/19 1:05 PM CDT [facility] ABS. NEUTROPHILS 3.25 1.80 - 7.70 x10'3/uL 08/30/2024 1:05 PM CDT [facility] ABS. LYMPHOCYTES 1.98 1.00 - 4.80 x10'3/uL 08/30/2024 1:05 PM CDT [facility] ABS. MONOCYTES 0.38 0.24 - 0.86 x10'3/uL 08/30/2024 1:05 PM CDT [facility] ABS. EOSINOPHILS 0.12 0.04 - 0.36 x10'3/uL 08/30/2024 1:05 PM CDT [facility] ABS. BASOPHILS 0.04 0.01 - 0.08 x10'3/uL 08/30/2024 1:05 PM CDT [facility] ABS. IMMATURE GRANULOCYTES 0.02 0.00 - 0.49 x10'3/uL 08/30/2024 1:05 PM CDT [facility] 08/30/2024 11:2 5 AM CDT us Sohail Wilson MD LABORATORY Final Result [facility] [address] [place] [address], [place] [phone] * ALBUMIN/CREATININE RATIO, RANDOM URINE (08/30/2024 11:22 AM CDT) CREATININE (U) 90.7 28 - 217 MG/DL 08/30/2024 12:23 PM CDT [facility] MICROALBUMIN (U) 1.1 <2.0 mg/dL 08/31/19 12:23 PM CDT [facility] ALBUMIN/CREAT RATIO 12.1 <30 MG/G 08/30/2024 12:23 PM CDT [facility] URINE SPECIMEN / Unknown 08/30/2024 11:22 AM CDT us Sohail Wilson MD URINE ORDERABLES Final Result Performing Organization Address City/[facility]/ZIP Co de Phone Number [facility] [address] [place] [address], [place] [phone] * COLLECT.CAPILLARY (FNGR,HEEL,EAR) (08/30/2024) us Sohail Wilson MD PROCEDURES-UNRESULTED Final Re sult Performing Organization Address City/[facility]/ZIP Co de Phone Number [facility] * HEPATITIS PANEL,ACUTE (08/19/2023 7:36 AM CDT) Pathologist [facility] HAV IGM NON-REACT POLLO NON-REACT POLLO [facility] Comment: For additional information, please refer to http://[employer].SocialOptimizr.S[employer] Media/faq/FLK265 (This link is being provided for informational/ educational purposes only.) HEPATITIS B SURFACE AG NON-REACT POLLO NON-REACT POLLO [facility] Comment: For additional information, please refer to http://[employer]im[employer]r.[employer]/faq/PUF497 (This link is being provided for informational/ educational purposes only.) HEP B CORE IGM NON-REACT POLLO NON-REACT POLLO [facility] Comment: For additional information, please refer to http://[employer].Concept Inbox/faq/KFA604 (This link is being provided for informational/ educational purposes only.) HEPATITIS C AB NON-REACT POLLO NON-REACT POLLO [facility] Comment: HCV antibody was non-reactive. There is no laboratory evidence of HCV infection. In most cases, no further action is required. However, if recent HCV exposure is suspected, a test for HCV RNA (test code 99991) is suggested. For additional information please refer to http://[employer].Con[employer] Inbox/faq/RJF35d8 (This link is being provided for informational/ educational purposes only.) 08/19/2023 7:36 AM CDT 08/19/2023 7:37 AM CDT Narrative TAYLOR PRICE - 08/20/2023 7:03 AM CDT FASTING:YES FASTING: YES Resulting Agency Comment Performing Organization Information: Site ID: [id number] Name: [facility] Address: [address] [place] [address] Director: Yamileth Carcamo MD Sohail Wilson MD LABORATORY Final Result [facility] [id number] [place] [address], * PAP SMEAR WITH HPV (04/17/2021) 04/17/2021 us [facility] Scanned SCANNING Final Resu lt from Last 3 Months or Most Recently Relevant to Health Maintenance Insurance [facility] Care Teams Grab Setter Relationship Specialty Start Date End Date Sohail Wilson MD [address] [place] [address] PCP - General FAMILY PRACTICE 07/12/24 Sohail Wilson MD [address] [place] [address] FAMILY PRACTICE 07/12/24
--- OUTSIDE RECORDS SUMMARY | 2024-09-26 13:44 | XMS_ITS | Encounter Summary ---
Author Organization [facility] Address [address] [place] [id number] Care Team Providers Care [employer] Manager Name Role Phone Sohail Garcia MD Primary Care Provider [phone] Sohail Garcia MD Unavailable [phone] Encounter Details Date Type Department Care Team (Latest Contact Info) Description 08/30/2024 Results Follow-Up [facility] Family Medicine [facility] [address] [place] [address] Sohail Garcia MD [address] [facility] 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 Question Answer Date of Assessment Author Status Little interest or pleasure in doing things Not at all 08/30/2024 9:03 AM CDT Jennifer Cooper Active Feeling down, depressed, or hopeless Not at all 08/30/2024 9:03 AM CDT Jennifer Cooper Active Patient Health Questionnaire-2 Score 0 08/30/2024 9:03 AM CDT Jennifer Cooper Act laura documented as of this encounter Plan of Treatment Upcoming Encounters Date Type Department Care Team (Late st Contact Info) Description 12/02/2024 7:00 AM CDT Office Visit [facility] Family Medicine - [place] [address] [place] [address] Sohail Garcia MD [address] [facility] [place] [address] documented as of this encounter Visit Diagnoses Not on filedocumented in this encounter Additional Health Concerns Assessment Noted Time PHQ-9 Depression Total Score: 13 024 3:57 PM CDT documented as of this encounter Care Teams [employer] Manager Relationship Specialty Start Date End Date Sohail Garcia MD [address] [place] [address] PCP - General FAMILY PRACTICE 07/12/24 Sohail Garcia MD [address] [place] [address] FAMILY PRACTICE 07/12/24 documented as of this encounter
--- OUTSIDE RECORDS SUMMARY | 2024-09-26 13:44 | XMS_ITS | Encounter Summary ---
Author Organization [facility] Address [address] [place] [address] Care Team Providers Care Sweet Goods Machine Operator Name Role Phone Sohail Garcia MD Primary Care Provider [phone] Sohail Garcia MD Unavailable [phone] Reason for Visit * Reason Onset Date Comments Information 09/26/2024 Encounter Details Date Type Department Care Team (Late st Contact Info) Description 09/26/2024 Telephone [facility] Family Medicine [facility] [address] [place] [phone] Sohail Garcia MD [address] [place] [address]. [place] [address] Information Social History Tobacco Use Types Packs/Day Years Used Date Smoking Tobacco: Never Passive Smoke Exposure: Past Smokeless Tobacco: Never Alcohol Use Standard Drinks/Week Comments Never 0 (1 standard drink = 0.6 oz pur e alcohol) PHQ-2 Answer Date Recorded Patient Health Questionnaire-2 Score 0 05/30/2024 Comments No Sex and Gender Information Value Date Recorded Sex Assigned at Female 05/30/2024 9:34 AM PIANO MECH[employer]IC Legal Sex Female 2:28 PM CDT Gender Identity Female 07/15/2024 1:22 PM CDT Sexual Orientation Not on file documented as of this encounter Progress Notes * Dayne Murphy V - 09/26/2024 8:10 AM CDT Spoke with patient was asking for and appt. Offered 920 am or [address] Osorio for 09/[address] Garcia is not in Office. Patient says she have an infection at her insulin pump site possible [place] the [place]. Patient says she will go to / ER to get antibiotics. Dr. Osorio is currently out of the office.The provider has another provider covering in their absence. Your message/concern has been forwarded to this provider. Please allow 48 hours for a response. Ifthis is an emergency, please call 911 or go to the ER. Thank you for understanding. Patient understood verbally of what was explained. documented in this encounter Plan of Treatment Upcoming Encounters Date Type Department Care Team (Late st Contact Info) Description 12/02/2024 7:00 AM CDT Office Visit [facility] Family Medicine - [place] [address] [place] [phone] Sohail Garcia MD [address] [facility] [place] [id number] documented as of this encounter Visit Diagnoses Not on filedocumented in this encounter Additional Health Concerns Assessment Noted Time PHQ-9 Depression Total Score: 13 024 3:57 PM CDT documented as of this encounter Care Teams Sweet Goods Machine Operator Relationship Specialty Start Date End Date Sohail Garcia MD [address] [place] [address] PCP - General FAMILY PRACTICE 07/12/24 Sohail Garcia MD [address] [place] [address] FAMILY PRACTICE 07/12/24 documented as of this encounter
--- OUTSIDE RECORDS SUMMARY | 2024-09-26 13:44 | XMS_ITS | Encounter Summary ---
Author Organization [facility] Address [address] [place] [address] Care Team Providers Care Compensator Name Role Phone Sohail Garcia MD Primary Care Provider [phone] Sohail Garcia MD Unavailable [phone] Encounter Details Date Type Department Care Team (Late Contact Info) Description 07/20/2024 MyChart Message Enc [address] [address] Sohail Garcia MD [address] [place] [address]. [place] [address] Antibiotics Social History Tobacco Use Types Packs/Day Years Used Date Smoking Tobacco: Never Passive Smoke Exposure: Past Smokeless Tobacco: Never Alcohol Use Standard Drinks/Week Comments Never 0 (1 standard drink = 0.6 oz pur e alcohol) PHQ-2 Answer Date Recorded Patient Health Questionnaire-2 Score 0 05/30/2024 Comments No Sex and Gender Information Value Date Recorded Sex Assigned at Female 05/30/2024 9:34 AM [employer] DEAN Legal Sex Female 2:28 PM CDT Gender Identity Female 07/15/2024 1:22 PM CDT Sexual Orientation Not on file documented as of this encounter Plan of Treatment Upcoming Encounters Date Type Department Care Team (Late Contact Info) Description 12/02/2024 7:00 AM CDT Office Visit [address] [address] Sohail Garcia MD [address] [place] [address]. [place] [address] documented as of this encounter Visit Diagnoses Not on filedocumented in this encounter Additional Health Concerns Assessment Noted Time PHQ-9 Depression Total Score: 13 024 3:57 PM CDT documented as of this encounter Care Teams Compensator Relationship Specialty Start Date End Date Sohail Garcia MD [address] [place] [address] PCP - General FAMILY PRACTICE 07/12/24 Sohail Garcia MD [address] [place] [address] FAMILY PRACTICE 07/12/24 documented as of this encounter
--- OUTSIDE RECORDS SUMMARY | 2024-09-26 13:44 | XMS_ITS | Encounter Summary ---
Author Organization [facility] Address [address] [place] [address] Care Team Providers Care Clay Products Machine Operator Name Role Phone Sohail Garcia MD Primary Care Provider [phone] Sohail Garcia MD Unavailable [phone] Encounter Details Date Type Department Care Team (Late Contact Info) Description 09/09/2024 Results Follow-Up [address] [address] Lauren Osorio MD [address] [place] [address] [place] PELVIC NON OB COMP TA+TV Social History Tobacco Use Types Packs/Day Years Used Date Smoking Tobacco: Never Passive Smoke Exposure: Past Smokeless Tobacco: Never Alcohol Use Standard Drinks/Week Comments Never 0 (1 standard drink = 0.6 oz pur e alcohol) PHQ-2 Answer Date Recorded Patient Health Questionnaire-2 Score 0 05/30/2024 Comments No Sex and Gender Information Value Date Recorded Sex Assigned at Female 05/30/2024 9:34 AM DRYWALL FOREMAN Legal Sex Female 2:28 PM CDT Gender Identity Female 07/15/2024 1:22 PM CDT Sexual Orientation Not on file documented as of this encounter Plan of Treatment Upcoming Encounters Date Type Department Care Team ([facility] Contact Info) Description 12/02/2024 7:00 AM CDT Office Visit [address] [address] Sohail Garcia MD [address] [place] [address]. [place] [address] documented as of this encounter Visit Diagnoses Not on filedocumented in this encounter Additional Health Concerns Assessment Noted Time PHQ-9 Depression Total Score: 13 024 3:57 PM CDT documented as of this encounter Care Teams Clay Products Machine Operator Relationship Specialty Start Date End Date Sohail Garcia MD 1 [place] [address] PCP - General FAMILY PRACTICE 07/12/24 Sohail Garcia MD [address] [place] [address] FAMILY PRACTICE 07/12/24 documented as of this encounter
--- NOTE | 2024-09-26 13:54 | ED.SKABFB ---
HPI - Skin/Abscess/Foreign Bdy General Chief complaint: Skin/Abscess/Foreign Body Stated complaint: skin infection Time Seen by Provider: 09/26/24 13:56 Source: patient Mode of arrival: ambulatory Limitations: no limitations History of Present Illness HPI narrative: 29-year-old female with a history of diabetes presented for complaint of redness and pain to the abdomen, where she wears the glucose monitor. Onset 4 days. Says she had been swimming in the ocean prior to the redness. Pt switched sites of the monitor and has noticed decrease in the redness, but says some swelling is spreading. Says she woke today with temp up to 102. Endorses pain with movement or touching the site. denies any drainage or itching to the site. Also says blood sugars have been elevated the last 2 days up to 200-300. Denies increase in urination or thirst, n/v/d. Related Data Home Medications ?Medication ?Instructions ?Recorded ?Confirmed ?Last Taken ?Type dextroamphetamine-amphetamine ER 20 mg PO DAILY 04/24/19 07/11/24 08/05/21 History 20 mg 24hr capsule,extend release (Adderall XR) clonazepam 0.5 mg tablet 0.5 mg PO DAILY 11/19/19 07/11/24 08/05/21 History bupropion HCl 150 mg 24 hr tablet, 150 mg PO DAILY 04/23/21 07/11/24 08/05/21 History extended release lamotrigine 100 mg tablet 100 mg PO DAILY 04/23/21 07/11/24 08/04/21 History insulin lispro 100 unit/mL 100 unit continuous subcutaneous 07/26/21 07/11/24 08/05/21 History subcutaneous solution infusion DIRECTED escitalopram oxalate 10 mg tablet 10 mg PO DIRECTED 10/21/22 07/11/24 Unknown History Allergies Allergy/AdvReac Type Severity Reaction Status Date / Time No Known Allergies Allergy Verified 09/26/24 13:59 Review of Systems Review of Systems: CONSTITUTIONAL: Denies body aches, fever, chills, or sweats. EYES: Denies visual changes, redness, or discharge. ENT: Denies rhinorrhea, congestion CARDIOVASCULAR: Denies chest pain, palpitations, or edema. RESPIRATORY: Denies cough or dyspnea. GASTROINTESTINAL: Denies abdominal pain, nausea, vomiting, or diarrhea. SKIN: per HPI MUSCULOSKELETAL: Denies back pain, joint pain, or myalgia. NEUROLOGIC: Denies headache, numbness, tingling, or weakness. [facility] Past Medical History Medical History Type 1 diabetes Bipolar 2 disorder SVT (supraventricular tachycardia) Surgical History Surgical History No pertinent past surgical history Social History Social History Smoking status: Former smoker Gender identity (if verbalized by the patient): Female Comments At time of signature, I have reviewed and agree with nursing past medical, surgical, social and family history unless otherwise noted. Please see nursing chart for further information. There is no relevant family history pertinent to the presenting complaint Exam Narrative: GENERAL: Well-appearing EYES: conjunctivae clear, and EOMI. ENT: Mucous membranes moist. Oropharynx without edema, erythema or lesions. NECK: Supple. No lymphadenopathy CHEST: Clear to auscultation. HEART: Regular rate and rhythm. SKIN: Warm, dry. left mid abdomen with 6cm area of erythema, warmth, tenderness with palpation, no fluctuance or active drainage. NEURO: Alert and oriented x3. Course Course Emergency Course: Patient is aware of diagnosis, understands and agrees to treatment plan. Anticipatory guidance given. Patient agrees to follow-up as directed and is aware of reasons to seek care at the emergency department. Portions of this record may have been created with voice recognition software Level of Care: Express Care Visit Vital Signs Vital signs: Vital Signs Temperature 98.5 F 09/26/24 13:33 Pulse Rate 88 09/26/24 13:33 Respiratory Rate 18 09/26/24 13:33 Blood Pressure 119/72 09/26/24 13:33 Pulse Oximetry 100 09/26/24 13:33 Oxygen Delivery Room Air 09/26/24 13:33 Temperature 98.5 F 09/26/24 13:33 Pulse Rate 88 09/26/24 13:33 Respiratory Rate 18 09/26/24 13:33 Blood Pressure 119/72 09/26/24 13:33 Pulse Oximetry 100 09/26/24 13:33 Oxygen Delivery Room Air 09/26/24 13:33 Reviewed MDM - Skin/Abscess/Foreign Bdy MDM Narrative Medical decision making narrative: Discussed physical exam findings c/w localized cellulitis to abdomen. Reviewed RX, Advised supportive measures and signs/symptoms to go to the ER. Pt is appropriate for outpt treatment and f/u. Differential Diagnosis Differential diagnosis: Likely abscess of skin or subcutaneous tissue, viral exanthem, dermatophytosis, urticaria, herpes zoster, cellulitis, eczema, insect bites, impetigo and contact dermatitis Discharge Plan Discharge Clinical Impression: Cellulitis Patient Disposition: Home Condition: Stable Instructions: Antibiotic Form, Cellulitis (ED) Additional Instructions: Keep the area clean and dry - cleanse with warm water and mild soap and allow to fully dry. Ok to apply neosporin to the site Keep it open to air (no bandages) Tylenol as needed for pain Watch for worsening symptoms including pain, redness, swelling, streaking, pus/drainage, fever. Go to the ER with any of these symptoms or concerns. Follow up with primary care provider in 1 week as needed. Patient Language: Belgian Prescriptions: New doxycycline hyclate 100 mg tablet 100 mg PO BID 7 Days Qty: 14 0RF No Action clonazepam 0.5 mg tablet 0.5 mg PO DAILY insulin lispro 100 unit/mL solution 100 unit continuous subcutaneous infusion DIRECTED escitalopram oxalate 10 mg tablet 10 mg PO DIRECTED clindamycin HCl 300 mg capsule 300 mg PO Q8H 10 Days Qty: 30 0RF lamotrigine 100 mg tablet 100 mg PO DAILY bupropion HCl 150 mg tablet extended release 24 hr 150 mg PO DAILY dextroamphetamine-amphetamine [Adderall XR] 20 mg capsule,extended release 24hr 20 mg PO DAILY ibuprofen 400 mg tablet 400 mg PO Q6H PRN (Reason: pain) Qty: 30 0RF acetaminophen [Tylenol] 325 mg capsule 325 mg PO Q6H PRN (Reason: pain) Qty: 30 0RF naproxen 375 mg tablet 375 mg PO BID Qty: 14 0RF Follow-up/Referrals: Jose,Sohail [Other]
== END 2024-09-26 14:12 | disposition home or self-care (01) ==
PROVIDERS: Emergency Provider Nurse Practitioner Family
DX: L03.311 Cellulitis of abdominal wall (principal); Z87.891 Personal history of nicotine dependence; E10.9 Type 1 diabetes mellitus without complications; F31.81 Bipolar II disorder
CPT/HCPCS: 99213; G0463

== ENCOUNTER 2024-10-10 11:12 | Emergency (ER) | payer OTHER, SELFPAY ==
--- NOTE | ~2024-10-10 | XR_ITS ---
Clinical Indication: Chest pain PA and lateral views of the chest: Comparison: 05/16/2020 Findings: The lungs are clear, without evidence of focal consolidation or pleural effusion. Cardiome diastinal silhouette is within normal limits. Bones and soft tissues are unremarkable. Impression: Normal chest. Reviewed, dictated and finalized at location . Impression: Normal chest.
--- NOTE | 2024-10-10 11:18 | ECG_ITS ---
Test Date: 2024-10-10 11:22:31 Measurements Intervals [place] Rate: 83 P: 58 KS: 134 QRS: 59 QRSD: 96 T: 28 QT: 349 QTc: 412 Interpretive Statements SINUS RHYTHM INCOMPLETE RIGHT BUNDLE BRANCH BLOCK [90+ ms QRS DURATION, TERMINAL R IN V1/V2, 40+ ms S IN I/aVL/V4/V5/V6] BORDERLINE ECG No previous ECG available for comparison Electronically Signed On 10-11-2024 09:55:48 CDT by Abhishek Pena M.D.
--- OUTSIDE RECORDS SUMMARY | 2024-10-10 11:19 | XMS_ITS | Data Portability ---
Author Organization [employer] , [facility] Address [address] [place] [address] Assessment No assessment recorded. Plan of Treatment Reminders Order Date Submit Date Provider Last Modified By Organization Details Last Modified Time Details Appointments FORMING ROLL OPERATOR SONO 15 2024 10:15A M Ultrasound [place] Not available Not available Not available FORMING ROLL OPERATOR EST 2024 10:30A M CHARLES MANCILLA, DATA ARCHITECT Not available Not available Not available Lab HPV E6+E7 mRNA, qualita tive PCR, cervix 2024 025 [facility] [place], [address] [place], [address], 09/16/2024 14:26:15 pap, LB 2024 025 Coco Controller [facility], [address] [facility], [place], [address], 09/21/2024 12:17:27 Referral None recorde d. Procedures None recorde d. Surgeries None recorde d. Imaging None recorde d. Medication Orders None recorde d. Patient TargetsNo targets recorded. Patient Instructions Encounter Date Encounter Id Patient Instructions Last Modified By Organization Details Last Modified Time 09/15/2024 [id number] A healthy lifestyle: care instructions Not available [...] l cervi brian cytol ogy. Not Available [facility] [address] [place], [address], 09/16/2024 14:26:15 09/16/1909/21/2024 THINP REP TIS PAP clinical information: normal None given Not Available [employer] [address] [address] [place], [address], 09/21/2024 12:17:27 09/16/19 25 09/21/2024 THINP REP TIS PAP LMP: normal NONE GIVEN Not Available [employer] [address] [address] [place], [address], 09/21/2024 12:17:27 09/16/19 25 09/21/2024 THINP REP TIS PAP prev. Pap: normal NONE GIVEN Not Available [employer] [address] [address] [place], [address], 09/21/2024 12:17:27 09/16/19 25 09/21/2024 THINP REP TIS PAP prev. BX: normal NONE GIVEN Not Available [employer] [address] [address] [place], [address], 09/21/2024 12:17:27 09/16/19 25 09/21/2024 THINP REP TIS PAP source: normal None given Not Available [employer] [place] [address] [address] [place], [address], 09/21/2024 12:17:27 09/16/1909/21/2024 THINP REP TIS PAP statement of adequacy: normal Satis facto ry for evalu ation . Endoc ervic al/tr ansfo rmati on zone compo nent prese nt. Age and/o r menst rual statu s not provi ded Not Available [address] [address] [place], [address], 09/21/2024 12:17:27 09/16/1909/21/2024 THINP REP TIS PAP interpretati on/result: normal Cytol ogy Resul ts: Negat laura for intra epith elial lesio n or malig lillie . Not Available [address] [address] [place], [address], 09/21/2024 12:17:27 09/16/1909/21/2024 THINP REP TIS PAP comment: normal This Pap test has been evalu ated with compu ter chanelle keyla techn ology . Not Available [address] [address] [place], [address], 09/21/2024 12:17:27 09/16/1909/21/2024 THINP REP TIS PAP cytotechnolo gist: normal JAF, CT( CP) CT Scree carmen Locat ion: [place] [address] [place] [address] Not Available [address] [address] [place], [address], 09/21/2024 12:17:27 09/16/1909/21/2024 THINP REP TIS PAP [...] brianda and curre nt clini brian infor kinza jacobo Not Available Its Time [facility] [address], [place], [address], 09/21/2024 12:17:27 Result Notes None recorded. Procedures Surgical History Date Name Laterality Status Provider Name and Address Organization Details Recorded Time Date of Last Pap Smear completed [facility] [employer] 09/15/2024 15:31:14 Heart surgery completed [facility] [employer] 09/15/2024 15:31:15 C Section completed [facility] [employer] 09/15/2024 15:31:15 Imaging Results None recorded. Procedure [...] Updated DateTime 09/15/2024 162.56 cm 33.6 kg/m2 22896.67 g 118/78 mm[Hg] Thalia Bautista [facility] 09/15/2024 15:43:04 Social History Question Answer Notes LastModified by Organizat ion Details LastModified Time Tobacco Smoking Status Former Smoker Thalia Michele vidal, [employer] [facility] 09/15/2024 15:40:06 If You Are , What Was Your Level Of Alcohol Consumption Prior To ? None Information not available 09/15/2024 How Many Years Have You Consumed Alcohol? 10 [email or web address] Information not available 09/15/2024 Are You Blind Or Do You Have Difficulty Seeing? No [email or web address] Information not available 09/15/2024 Are You Deaf Or Do You Have Serious Difficulty Hearing? No [email or web address] Information not available 09/15/2024 What Type Of Diet Are You Following? REGULAR Information not available 09/15/2024 What Is The Highest Grade Or Level Of School You Have Completed Or The Highest Degree You Have Received? [id number] [email or web address] Information not available 09/15/2024 When Did You Quit Smoking? 6-10yearssince lastcigarette [email or web address] Information not available 09/15/2024 How Many Children Do You Have? 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 Information not available 09/15/2024 Are You Sexually Active? Yes [email or web address] Information not available 09/15/2024 At What Age Did You Start Smoking Tobacco? 16 [email or web address] Information not available 09/15/2024 How Much Tobacco Do You Smoke? 0.5 PPD Information not available 09/15/2024 What Types Of Sporting Activities Do You Participate In? I Have Kids... [email or web address] Information not available 09/15/2024 How Many Years Have You Smoked Tobacco? 3 [email or web address] Information not available 09/15/2024 Sex: Unknown Functional Status Question Answer Note LastModified by Organizat ion Details LastModified Time Do you use any illicit or recreational drugs? No [email or web address] Information not available 09/15/2024 Do you or have you ever used any other forms of tobacco or nicotine? No [email or web address] Information not available 09/15/2024 What is your level of alcohol consumption? Occasional [email or web address] Information not available 09/15/2024 Are you currently employed? Yes [email or web address] Information not available 09/15/2024 What is your exercise level? Occasional [email or web address] Information not available 09/15/2024 Mental Status None recorded. Family History Relationship Description Onset Age of this Age Resolved Age Notes LastModified by Organization Details LastModified Time Mother Endometriosi s (clinical) Not available 15:31:14 Mother Diabetes mellitus Not available 2024 15:31:14 Unspecified Relation Malignant tumor of breast [email or web address] Not available 2024 15:31:14 Medical History Condition Response Depression Y Anxiety Disorder Y ADD/ADHD Y Diabetes (insulin dependent) Y Gynecological History [...] SNOMED-CT Code Diagnosis ICD10 Code Diagnosis Note [id number] JENNY HERNANDEZ [facility] [address] [place] [address] 09/15/2024 15:07:00 09/20/2024 12:44:48 Gynecologic examination 32314184 Z01.419 Screening for malignant neoplasm of cervix [id number] Z12.4 ASCCP guidelines reviewed with pt. Pap collected and sent. Further POC pending lab result review. Pt states understand ing of POC. Screening for malignant neoplasm of breast [id number] Z12.39 Pt educated on breast cancer screening guidelines . Denies any concerns with breast at this time. Denies any lumps, bumps, nipple discharge or unusual soreness. Pt states understand ing of POC. Depression screening 171 986402 Z13.31 see intake form Pain in pelvis [id number] R10.2 -Pt had US completed on 09-09 [...] Partida Member ID Guarantor Name 09/20/2024 1 [facility] [id number] Jammie Man Anselmo [id number] Jammie Deshpande Notes Date Note Type Note Provider Name and Address Organization Details Recorded Time 09/15/2024 text/html Jammie is a new patient. She is 29 years old here to establish care and here for her annual exam.Last pap: 09-16-2022 with PCP, denies any hx of abnormal pap smears.LMP was 6-09-72Pscic control is partner has a vasectomy JENNY HERNANDEZ [address] [facility], [place], [address], [facility] [employer] IV 09/20/2024 06:59:11 OBGyn Episode Ob Episode Information Episode Created Date Number of Fetuses Patient Bloodtype Patient rh Status Prepregnancy Weight lbs Domestic Partner Domestic Partner Phone Father Name Neuroscientist Status 09/16/19 25 2 CLOSED Fetus Data First Name Last Name Admitted to NICU Weight (g) Sex Living Outcome Pediatric Complications Fetus ID Race Codes Race Delivery Type 907.184 M Prematur e [id number] Repeat 907.184 F Prematur e [id number] Repeat David Calculation Initial David Date Initial [...] Domestic Partner Domestic Partner Phone Father Name Neuroscientist Status 09/16/19 25 1 CLOSED Fetus Data [...]
--- OUTSIDE RECORDS SUMMARY | 2024-10-10 11:19 | XMS_ITS | Patient Health Record ---
Author Organization [facility] Address [address] [facility] [address] [place] [address] Care Team Providers Care Bacteriologist Pharmaceutical Name Role Phone Gael Long Unavailable [phone] Reason For Referral No Information Medications Medication SIG (Take, Route, Frequency, Duration) Notes Start Date End Date Status DULoxetine HCl 30 MG Oral Active Amphetamine-Dextroamph et ER 25 MG Oral Active ProAir HFA 108 (90 Base) MCG/ACT Inhalation Active Virtussin A/C 100-10 MG/5ML Oral Active Classic 28 mg iron- 800 mcg Oral *Pick strength-form from [employer] for eRX* Active Sertraline HCl 100 MG Oral Active Trintellix 20 MG Oral Act laura Amoxicillin 500 MG Oral A ctive clonazePAM 0.5 MG Oral Ac tive Insulin Lispro (1 Unit Dial) 100 UNIT/ML Subcutaneous Active FREESTYLE KRISTINA 14 DAY SENSOR KIT *Reorder from [employer] for eRx and Interaction Alerts* Active FREESTYLE PRECISION ELOISE In Vitro *Reorder from [employer] for eRx and Interaction Alerts* Active lamoTRIgine 25 MG Oral Ac tive Adderall XR 25 MG Oral Ac tive FREESTYLE KRISTINA 2 SENSOR KIT *Reorder from [employer] for eRx and Interaction Alerts* Active INSULIN ASPART (U-100) 100 UNIT/ML (3 ML) SUBCUTANEOUS PEN *Reorder from [employer] for eRx and Interaction Alerts* Active Sertraline HCl 50 MG Oral Active Benzonatate 100 MG Oral A ctive DULoxetine HCl 60 MG Oral Active lamoTRIgine 100 MG Oral A ctive Fludrocortisone Acetate 0.1 MG Oral Active Ciprofloxacin HCl 500 MG Oral Active Azithromycin 250 MG Oral Active traZODone HCl 50 MG Oral Active Glucagon Emergency 1 MG Injection Active Vraylar 3 mg Oral Active Cephalexin 500 MG Oral Ac tive INSULIN ASPART U-100 100 UNIT/ML SUBCUTANEOUS SOLUTION *Reorder from [employer] for eRx and Interaction Alerts* Active Basaglar KwikPen 100 UNIT/ML Subcutaneous Active Fluconazole 150 MG Oral A ctive Plan Of Treatment No Information Insurance Providers Payer Name Payer Address Payer Phone Subscriber Number Group Number Insured Name Patient Relationship to Insured Coverage Start Date Coverage End Date [employer] [address] [place] [address] [id number] ARELI MATHIAS Spouse - patient is the spouse of the insured
[2024-10-10 11:20] VITALS: BP 123/77; PULSE 88; RESP 16; TEMP 36.8; O2SAT 99
[2024-10-10 11:40] VITALS: O2SAT 100
[2024-10-10 11:40] LABS: Hematocrit 38.7 % (37.0-47.0); Hemoglobin 12.4 g/dL (12.0-15.0); Immature Granulocyte Percent A 0.3 % (0-0.5); Lymphocytes Absolute Auto 1.71 K/mm3 (0.9-3.2); Mean Corpuscular HGB Conc 32.0 g/dl (32-36); Mean Corpuscular Hemoglobin 27.0 pg (26-34); Mean Corpuscular Volume 84.1 fl (80-100); Nucleated Red Blood Cells Absolute Auto 0.000 K/mm3 (0.0-0.012); Nucleated Red Blood Cells Perc 0.0 % (0.0-0.2); Platelet Count Result 355 k/mm3 (150-375); Red Blood Count 4.60 M/mm3 (4.2-5.4); White Blood Count 6.4 K/mm3 (4.5-10.0)
[2024-10-10] MEDS: ASPIRIN 81 MG CHEWABLE TABLET 324 MG PO (11:50)
[2024-10-10] MEDS: LORazepam (*CRX) 1 MG TABLET PO (11:50)
[2024-10-10 11:53] LABS: INR 1.0; Prothrombin Time 13.7 Seconds (11.1-14.7)
[2024-10-10 11:54] LABS: Partial Thromboplastin Time 27.4 Seconds (22.3-36.8)
[2024-10-10 12:01] LABS: Alanine Aminotransferase 17 U/L (6-35); Albumin Level 4.6 g/dL (3.5-5.1); Alkaline Phosphatase 83 U/L (38-126); Anion Gap 11 mmol/L (4-12); Aspartate Amino Transferase 26 U/L (14-36); Bilirubin,Total 0.4 mg/dL (0.2-1.3); Blood Urea Nitrogen 8 mg/dL (7-17); Calcium 9.4 mg/dL (8.4-10.2); Carbon Dioxide 21 mmol/L (22-30); Chloride 105 mmol/L (98-107); Estimated CRCL calculation 103 ml/min; Estimated Glomerular Filt Rate > 60; Glucose 197 mg/dL (65-110); Lipase 29 U/L (23-300); Potassium 4.2 mmol/L (3.4-5.0); Sodium 137 mmol/L (137-145); Total Protein 8.0 g/dL (6.3-8.2)
[2024-10-10 12:09] LABS: Troponin I < 0.012 ng/mL (0.000-0.034)
--- OUTSIDE RECORDS SUMMARY | 2024-10-10 12:19 | XMS_ITS | Encounter Summary ---
Author Organization [facility] Address [address] [place] [address] Care Team Providers Care Sales Contractor Name Role Phone Sohail Garcia MD Primary Care Provider [phone] Sohail Garcia MD Unavailable [phone] Encounter Details Date Type Department Care Team (Latest Contact Info) Description 08/30/2024 Results Follow-Up [facility] Family [facility] [address] [place] [address] Sohail Garcia MD [address] [facility] [place] [address] LIPID PANEL, COMPREHENSIVE METABOLIC PANEL, [...] Sex Assigned at Female 05/30/2024 9:34 AM METAL FILER Legal Sex Female 2:28 PM CDT Gender [...] Description 12/02/2024 7:00 AM CDT Office Visit [facility] - [place] [address] [place] [address] Sohail Garcia MD [address] [facility] [place] [address] documented as of this encounter Visit Diagnoses Not on filedocumented in this encounter Additional Health Concerns Assessment Noted Time PHQ-9 Depression Total Score: 13 024 3:57 PM CDT documented as of this encounter Care Teams Sales Contractor Relationship Specialty Start Date End Date Sohail Garcia MD 1 [place] [address] PCP - General FAMILY PRACTICE 07/12/24 Sohail Garcia MD 1 [place] [address] FAMILY PRACTICE 07/12/24 documented as of this encounter
--- OUTSIDE RECORDS SUMMARY | 2024-10-10 12:19 | XMS_ITS | Clinical Summary ---
Author Organization [facility] Address [address] [place] [address] Care Team Providers Care Collet Making Machine Operator Name Role Phone Sohail Wilson MD Primary Care Provider [phone] Sohail Wilson MD Unavailable [phone] Allergies No known active allergies Medications [...] (VIAL)Indication s:Type 1 diabetes mellitus without complication ([facility]) Inject 30 Units into the skin nightly at bedtime. 10 mL 2 10/07/19 24 Active insulin lispro (HUMALOG) 100 UNIT/ML patient supplied PUMP Inject into the skin continuous. Active Active Problems Problem Noted Date Diagnosed Date Cellulitis of lip 07/15/2024 Blood blister 05/30/2024 Fatigue, unspecified type 10/07/2023 Cyst of right ovary 08/11/2023 Type 1 diabetes mellitus wit hout complication ([facility]) 08/11/2023 Class 2 severe obesity due t o excess calories with serious comorbidity and body mass index (BMI) of 35.0 to 35.9 in adult 08/11/2023 Bipolar 2 disorder ([facility]) 08/11/2023 Systolic murmur 08/11/2023 Encounters Date Type Department Care Team Description 09/26/[address] [address] Sohail Wilson MD Information 09/09/2024 Results Follow-Up [address] [address] Lauren Osorio MD US PELVIC NON OB COMP TA+TV 09/08/2024 4:06 PM CDT - 09/08/2024 11:59 PM CDT Hospital Encounter [facility] Ultrasound [address] [place] [address] Sohail Wilson MD Discharge Disposition: Home or Self Care (Routine Discharge) 09/08/2024 Travel 08/30/2024 11:05 AM CDT - 08/30/2024 11:59 PM CDT Hospital Encounter [facility] [address] [place] [address] Sohail Wilson MD Discharge Disposition: Home or Self Care (Routine Discharge) 08/30/2024 8:40 AM CDT Office Visit [address] [address] Sohail Wilson MD Diabetes 08/30/2024 Results Follow-Up [address] [address] Sohail Wilson MD LIPID PANEL, COMPREHENSIVE METABOLIC PANEL, HEMOGLOBIN, GLYCOSYLATED, Additional followed-up results: 3 08/30/2024 Travel 07/20/2024 MyChart Message Enc [address] [address] Sohail Wilson MD Antibiotics 07/15/2024 1:20 PM CDT Office Visit [place] [address] [place] [address] Sohail Wilson MD ER F/U (SUE 07/12/2024 ; lip swelling. Patient states abx have helped the swelling a little, lesion busted open last night and is now leaking during the day.) 07/15/2024 Travel 07/12/2024 7:04 AM CDT - 07/12/2024 7:40 AM CDT Emergency [facility] [place] [address] Jean Fonseca MD Facial Swelling Discharge Disposition: [...] Sex Assigned at Female 05/30/2024 9:34 AM CALIBRATION CHECKER Legal Sex Female 2:28 PM CDT Gender [...] Description 12/02/2024 7:00 AM CDT Office Visit [facility] - [place] [address] [place] [address] [place] [address] [place] [address]. [place] [address] Health Maintenance Due Date Last Done Comments [...] , 06/19/2020, Additional history exists PHQ-2 (Physician [place]) Completed 08/30/2024 Meningococcal B Vaccine Aged Out [...] CDT Type 1 diabetes mellitus without complication ([facility]) CBC W/DIFF AUTOMATED Routine 08/30/2024 11:25 AM CDT Type 1 diabetes mellitus without complication (CMS/HCC HHS/HCC) HEMOGLOBIN, GLYCOSYLATED Routine 08/30/2024 11:25 AM CDT Type 1 diabetes mellitus without complication ([facility]) COMPREHENSIVE METABOLIC PANEL Routine [...] 12:14 PM Narrative 09/09/2024 12:29 PM CDT [facility] [address] [place] [address] EXAMINATION: US PELVIC NON OB COMP TA+TV EXAM DATE: 09/08/2024 4:22 PM COMPARISON STUDIES: 09/21/2023 CLINICAL HISTORY: right ovarian cyst, RLQ pain . Left lower quadrant pain for 2 weeks. Prior endometrioma removal from region of scar.. LMP 08/21/2024 FINDINGS: Real time ultrasound examination performed by the utilities equipment repairer of the pelvis through transabdominal and transvaginal [...] Procedure Note Osvaldo Nguyen MD - 09/09/2024 [facility] [address] [facility] [place] [address] EXAMINATION: US PELVIC NON OB COMP TA+TV EXAM DATE: 09/08/2024 4:22 PM COMPARISON STUDIES: 09/21/2023 CLINICAL HISTORY: right ovarian cyst, RLQ pain . Left lower quadrantpain for 2 weeks. Prior endometrioma removal from region of C-sectionscar.. LMP 08/21/2024 FINDINGS: Real time ultrasound examination performed by the utilities equipment repairer of thepelvis through transabdominal and transvaginal approach. [...] - 3.74 uIU/ML 08/30/2024 1:33 PM CDT [facility] Comment: HIGH DOSES OF BIOTIN MAY INTERFERE WITH THIS TEST RESULT. CORRELATION TO CLINICAL HISTORY AND PRESENTATION RECOMMENDED. FREE T4 NOT INDICATED 08/30/2024 11:2 5 AM CDT Sohail Wilson MD LABORATORY Final Result [facility] [address] [place] [address], [place] [phone] * (ABNORMAL) HEMOGLOBIN, GLYCOSYLATED (08/30/2024 11:25 AM CDT) Only the most recent of2 resultswithin the time period is included. HGB A1C 7.2(H) <5.7 % 08/30/2024 1:48 PM CDT [facility] Comment: ADA GUIDELINES 2010 5.7 TO 6.4% INCREASED RISK OF DIABETES > OR = 6.5% CONSISTENT WITH DIABETES ESTIMATED AVG GLUCOSE 160 mg/dL 08/30/2024 1:48 PM CDT [facility] 08/30/2024 11:2 5 AM CDT Sohail Wilson MD LABORATORY Final Result [facility] [address] [place] [address], [place] [phone] * (ABNORMAL) COMPREHENSIVE METABOLIC PANEL (08/30/2024 11:25 AM CDT) GLUCOSE 109(H) 70 - 99 MG/DL 08/30/2024 1:33 PM CDT [facility] BUN 12 7 - 18 MG/DL 08/30/2024 1:33 PM CDT [facility] CREATININE S/P/B 0.86 0.55 - 1.02 MG/DL 08/30/2024 1:33 PM CDT [facility] SODIUM S/P/B 139 136 - 145 MMOL/L 08/30/2024 1:33 PM CDT [facility] POTASSIUM S/P/B 4.1 3.5 - 5.1 MMOL/L 08/30/2024 1:33 PM CDT [facility] CHLORIDE S/P/B 108 97 - 115 MMOL/L 08/30/2024 1:33 PM CDT [facility] CO2 24.0 21 - 32 MMOL/L 08/30/2024 1:33 PM CDT [facility] CALCIUM S/P/B 9.4 8.5 - 10.1 MG/DL 08/30/2024 1:33 PM CDT [facility] BILIRUBIN TOTAL S/P/B 0.4 0.2 - 1.2 MG/DL 08/30/2024 1:33 PM CDT [facility] Comment: THIS ASSAY IS NOT RECOMMENDED FOR PATIENTS UNDERGOING TREATMENT WITH ELTROMBOPAG DUE TO THE POTENTIAL FOR FALSELY ELEVATED RESULTS. TOTAL PROTEIN S/P/B 7.5 6.4 - 8.2 G/DL 08/30/2024 1:33 PM CDT [facility] ALBUMIN S/P/B 3.9 3.4 - 5.0 G/DL 08/30/2024 1:33 PM CDT [facility] AST 10(L) 15 - 37 U/L 08/30/2024 1:33 PM CDT [facility] ALT 18 14 - 55 U/L 08/30/2024 1:33 PM CDT [facility] ALKALINE PHOSPHATASE S/P/B 96 50 - 136 U/L 08/30/2024 1:33 PM CDT [facility] ANION GAP 7.0 2 - 10 MMOL/L 08/30/2024 1:33 PM T [facility] BUN CREATININE RATIO 14.0 6 - 26 08/30/2024 1:33 PM T [facility] A/G RATIO 1.1 1.0 - 2.0 RATIO 08/30/2024 1:33 PM T [facility] GFR ESTIMATE >90 >90 ML/MIN/1.7 3 M2 08/30/2024 1:33 PM T [facility] Comment: NOTE: eGFR is not calculated [...] MD LABORATORY Final Result Performing Organization Address [facility]/ZIP Co de Phone Number [facility] [address] [place] [address], * LIPID PANEL (08/30/2024 11:25 AM CDT) CHOLESTEROL 137 <200 MG/DL 08/30/2024 1:33 PM CDT [facility] TRIGLYCERIDES 56 <150 MG/DL 08/30/2024 1:33 PM CDT [facility] HDL 62 >40.0 MG/DL 08/30/2024 1:33 PM CDT [facility] LDL (CALCULATED) 64 <100 MG/DL 08/31/19 1:33 PM CDT [facility] NON HDL CHOLESTEROL 75 <130 MG/DL 08/30 1:33 PM CDT [facility] CHOL/HDL RATIO 2.2 0.0 - 4.5 08/30/2024 1:33 PM CDT [facility] VLDL CALCULATION 11 5 - 55 MG/DL 08/30/2024 1:33 PM CDT [facility] LIPID INTERPRETATION 08/30/2024 1:33 PM CDT [facility] Comment: NIH CONCENSUS REPORT RECOMMENDATIONS: ADULT CHILD LOW RISK: CHOLESTEROL <200 <170 TRIGLYCERIDE <150 --- HDL >=60 --- LDL <100 <110 BORDERLINE: CHOLESTEROL 200-239 170-199 TRIGLYCERIDE 150-199 --- HDL 40-59 --- LDL 100-159 110-129 HIGH RISK: CHOLESTEROL >=240 >=200 TRIGLYCERIDE >=200 --- HDL <40 --- LDL >=160 >=130 08/30/2024 11:2 5 AM CDT Sohail Wilson MD LABORATORY Final Result [facility] [address] [place] [address], * CBC W/DIFF AUTOMATED (08/30/2024 11:25 AM CDT) [facility] WBC 5.79 4.5 - 11.0 x10'3/uL 08/30/2024 1:05 PM CDT [facility] RBC 4.63 4.20 - 5.40 x10'6/uL 08/30/2024 1:05 PM CDT [facility] HGB 12.7 12.0 - 16.0 G/DL 08/30/2024 1:05 PM CDT [facility] HCT 39.6 38.0 - 48.0 % 08/30/2024 1:05 PM CDT [facility] MCV 85.5 81.0 - 99.0 FL 08/30/2024 1:05 PM CDT [facility] MCH 27.4 27.0 - 31.0 PG 08/30/2024 1:05 PM CDT [facility] MCHC 32.1 32.0 - 36.0 G/DL 08/30/2024 1:05 PM CDT [facility] RDW 13.1 11.5 - 14.5 % 08/30/2024 1:05 PM CDT [facility] PLT 368 130 - 400 x10'3/uL 08/30/2024 1:05 PM CDT [facility] MPV 9.9 9.3 - 12.2 FL 08/30/2024 1:05 PM CDT [facility] DIFFERENTIAL TYPE AUTOMATED DIFFERENTIAL 08/30/2024 1:05 PM CDT [facility] NEUTROPHILS % 56.1 % 08/30/2024 1:05 PM CDT [facility] LYMPHOCYTES % 34.2 % 08/30/2024 1:05 PM CDT [facility] MONOCYTES % 6.6 % 08/30/2024 1:05 PM CDT [facility] EOSINOPHILS 2.1 % 08/30/2024 1:05 PM CDT [facility] BASOPHILS 0.7 % 08/30/2024 1:05 PM CDT [facility] IMMATURE GRANS % 0.3 % 08/31/19 1:05 PM CDT [facility] ABS. NEUTROPHILS 3.25 1.80 - 7.70 x10'3/uL 08/30/2024 1:05 PM CDT [facility] ABS. LYMPHOCYTES 1.98 1.00 - 4.80 x10'3/uL 08/30/2024 1:05 PM CDT [facility] ABS. MONOCYTES 0.38 0.24 - 0.86 x10'3/uL 08/30/2024 1:05 PM CDT [facility] ABS. EOSINOPHILS 0.12 0.04 - 0.36 x10'3/uL 08/30/2024 1:05 PM CDT [facility] ABS. BASOPHILS 0.04 0.01 - 0.08 x10'3/uL 08/30/2024 1:05 PM CDT [facility] ABS. IMMATURE GRANULOCYTES 0.02 0.00 - 0.49 x10'3/uL 08/30/2024 1:05 PM CDT [facility] 08/30/2024 11:2 5 AM CDT us Sohail Wilson MD LABORATORY Final Result [facility] [address] [place] [address], [place] [phone] * ALBUMIN/CREATININE RATIO, RANDOM URINE (08/30/2024 11:22 AM CDT) CREATININE (U) 90.7 28 - 217 MG/DL 08/30/2024 12:23 PM CDT [facility] MICROALBUMIN (U) 1.1 <2.0 mg/dL 08/31/19 12:23 PM CDT [facility] ALBUMIN/CREAT RATIO 12.1 <30 MG/G 08/30/2024 12:23 PM CDT [facility] URINE SPECIMEN / Unknown 08/30/2024 11:22 AM CDT us Sohail Wilson MD URINE ORDERABLES Final Result Performing Organization Address City/[facility]/ZIP Co de Phone Number [facility] [address] [place] [address], [place] [phone] * COLLECT.CAPILLARY (FNGR,HEEL,EAR) (08/30/2024) us Sohail Wilson MD PROCEDURES-UNRESULTED Final Re sult Performing Organization Address City/[facility]/ZIP Co de Phone Number [facility] * HEPATITIS PANEL,ACUTE (08/19/2023 7:36 AM CDT) Pathologist [facility] HAV IGM NON-REACT POLLO NON-REACT POLLO [facility] Comment: For additional information, please refer to http://Online Dealer.BlitzLocal.Adocu.com/faq/ZNH427 (This link is being provided for informational/ educational purposes only.) HEPATITIS B SURFACE AG NON-REACT POLLO NON-REACT POLLO [facility] Comment: For additional information, please refer to http://Online Dealer.BlitzLocal.Adocu.com/faq/XFN156 (This link is being provided for informational/ educational purposes only.) HEP B CORE IGM NON-REACT POLLO NON-REACT POLLO [facility] Comment: For additional information, please refer to http://Online Dealer.Zipnosis/faq/HTO015 (This link is being provided for informational/ educational purposes only.) HEPATITIS C AB NON-REACT POLLO NON-REACT POLLO [facility] Comment: HCV antibody was non-reactive. There is no laboratory evidence of HCV infection. In most cases, no further action is required. However, if recent HCV exposure is suspected, a test for HCV RNA (test code 85555) is suggested. For additional information please refer to http://Online Dealer.Zipnosis/faq/LBZ53s7 (This link is being provided for informational/ educational purposes only.) 08/19/2023 7:36 AM CDT 08/19/2023 7:37 AM CDT Narrative [facility] PR[facility] - 08/20/2023 7:03 AM CDT FASTING:YES FASTING: YES Resulting Agency Comment Performing Organization Information: Site ID: [place] Name: [facility] Address: [address] [place] [address] Director: Yamileth Carcamo MD Sohail Wilson MD LABORATORY Final Result [facility] [id number] [place] [address], * PAP SMEAR WITH HPV (04/17/2021) 04/17/2021 [facility] Scanned SCANNING Final Resu lt from Last 3 Months or Most Recently Relevant to Health Maintenance Insurance [facility] Care Teams Collet Making Machine Operator Relationship Specialty Start Date End Date Sohail Wilson MD 1 [place] [address] PCP - General FAMILY PRACTICE 07/12/24 Sohail Wilson MD [address] [place] [address] FAMILY PRACTICE 07/12/24
--- OUTSIDE RECORDS SUMMARY | 2024-10-10 12:19 | XMS_ITS | Encounter Summary ---
Author Organization [facility] Address [address] [place] [address] Care Team Providers Care Research Animal Attendant Name Role Phone Sohail Garcia MD Primary Care Provider [phone] Sohail Garcia MD Unavailable [phone] Encounter Details Date Type Department Care Team (Late Contact Info) Description 09/09/2024 Results Follow-Up [address] [address] Lauren Osorio MD [address] [place] [address] [place] PELVIC NON OB COMP TA+TV [...] Sex Assigned at Female 05/30/2024 9:34 AM HOSPITALITY COORDINATOR Legal Sex Female 2:28 PM CDT Gender Identity Female 07/15/2024 1:22 PM CDT Sexual Orientation Not on file documented as of this encounter Plan of Treatment Upcoming Encounters Date Type Department Care Team ([facility] Contact Info) Description 12/02/2024 7:00 AM CDT Office Visit [address] [address] Sohail Garcia MD [address] [place] [address]. [place] [address] documented as of this encounter Visit Diagnoses Not on filedocumented in this encounter Additional Health Concerns Assessment Noted Time PHQ-9 Depression Total Score: 13 024 3:57 PM CDT documented as of this encounter Care Teams Research Animal Attendant Relationship Specialty Start Date End Date Sohail Garcia MD [address] [place] [address] PCP - General FAMILY PRACTICE 07/12/24 Sohail Garcia MD [address] [place] [address] FAMILY PRACTICE 07/12/24 documented as of this encounter
--- OUTSIDE RECORDS SUMMARY | 2024-10-10 12:19 | XMS_ITS | Encounter Summary ---
Author Organization [facility] Address [address] [place] [address] Care Team Providers Care Dye Tank Tender Name Role Phone Sohail Garcia MD Primary Care Provider [phone] Sohail Garcia MD Unavailable [phone] Encounter Details Date Type Department Care Team (Late Contact Info) Description 07/20/2024 MyChart Message Enc [address] [address] Sohail Garcia MD [address] [place] [address]. [place] [address] Antibiotics Social History Tobacco Use [...] Sex Assigned at Female 05/30/2024 9:34 AM DISPLAY DEPARTMENT MANAGER Legal Sex Female 2:28 PM CDT Gender Identity Female 07/15/2024 1:22 PM CDT Sexual Orientation Not on file documented as of this encounter Plan of Treatment Upcoming Encounters Date Type Department Care Team (Late Contact Info) Description 12/02/2024 7:00 AM CDT Office Visit [address] [address] Sohail Garcia MD [address] [place] [address]. [place] [address] documented as of this encounter Visit Diagnoses Not on filedocumented in this encounter Additional Health Concerns Assessment Noted Time PHQ-9 Depression Total Score: 13 024 3:57 PM CDT documented as of this encounter Care Teams Dye Tank Tender Relationship Specialty Start Date End Date Sohail Garcia MD [address] [place] [address] PCP - General FAMILY PRACTICE 07/12/24 Sohail Garcia MD [address] [place] [address] FAMILY PRACTICE 07/12/24 documented as of this encounter
--- NOTE | 2024-10-10 12:37 | ED.CHESTPAIN ---
HPI - Chest Pain General Chief Complaint: Chest Pain Stated Complaint: chest pain, Body vibrate took wrong med Time Seen by Provider: 10/10/24 11:19 History of Present Illness HPI narrative: Patient with history of anxiety on lamotrigine and fluvoxamine & adult had been very tired over last few days, realized that the lamotrigine refill she had gone was the wrong dose and she had been under dosing herself, started noticing some chest tightness and palpitations, the chest tightness seem to spread throughout her whole chest so she came into the hospital. She is feeling anxious. Related Data Home Medications ?Medication ?Instructions ?Recorded ?Confirmed ?Last Taken ?Type dextroamphetamine-amphetamine ER 20 mg PO DAILY 04/24/19 07/11/24 08/05/21 History 20 mg 24hr capsule,extend release (Adderall XR) clonazepam 0.5 mg tablet 0.5 mg PO DAILY 11/19/19 07/11/24 08/05/21 History bupropion HCl 150 mg 24 hr tablet, 150 mg PO DAILY 04/23/21 07/11/24 08/05/21 History extended release lamotrigine 100 mg tablet 100 mg PO DAILY 04/23/21 07/11/24 08/04/21 History insulin lispro 100 unit/mL 100 unit continuous subcutaneous 07/26/21 07/11/24 08/05/21 History subcutaneous solution infusion DIRECTED escitalopram oxalate 10 mg tablet 10 mg PO DIRECTED 10/21/22 07/11/24 Unknown History Allergies Allergy/AdvReac Type Severity Reaction Status Date / Time No Known Allergies Allergy Verified 10/10/24 11:23 Review of Systems Review of Systems: All systems reviewed & are unremarkable except as noted in HPI and below PMFSH Past Medical History Medical History Type 1 diabetes Bipolar 2 disorder SVT (supraventricular tachycardia) Surgical History Surgical History No pertinent past surgical history Social History Social History Smoking status: Former smoker Gender identity (if verbalized by the patient): Female Exam Narrative: EXAMINATION OF ORGAN SYSTEMS/BODY AREAS: Constitutional: Vital signs per nursing GENERAL: Appears slightly anxious, nontoxic appearing HEAD: Normal with no signs of head trauma. EYES: EOMI, conjunctiva normal ENT: Hearing grossly intact LUNGS: Nonlabored breathing. Clear to auscultation bilaterally HEART: [Regular rate and rhythm] ABD: [Soft], [nontender to palpation] EXT: Normal range of motion SKIN: [No rashes or lesions.] NEURO: [Alert and oriented x 3. No gross focal sensory or strength deficits.] PSYCH: Slightly anxious affect Course Vital Signs Vital signs: Vital Signs Temperature 98.2 F 10/10/24 11:20 Pulse Rate 88 10/10/24 11:20 Respiratory Rate 16 10/10/24 11:20 Blood Pressure 123/77 10/10/24 11:20 Pulse Oximetry 99 10/10/24 11:20 Temperature 98.2 F 10/10/24 11:20 Pulse Rate 84 10/10/24 12:52 Respiratory Rate 16 10/10/24 12:52 Blood Pressure 127/83 10/10/24 12:52 Pulse Oximetry 98 10/10/24 12:52 Oxygen Delivery Room Air 10/10/24 11:40 MDM - Chest Pain MDM Narrative Medical decision making narrative: Patient with history of anxiety palpitations and chest tightness, recent medication error led to her underdosing her lamotrigine. On exam patient is slightly anxious however normal vital signs, lungs are clear. I will obtain EKG and chest xray to rule out arrhythmia/ischemia, pneumothorax, or other cause of chest discomfort/shortness of breath. Chest x-ray on my independent interpretation does not show any acute abnormality, no pneumothorax or consolidation. EKG - 12-Lead: Interpreted by me. [Sinus rhythm]. Rate 83. [Normal] axis. TX-interval [normal]. QRS duration [normal]. QTc [normal]. [No ST segment elevation or depression]. [T-wave normal]. Impression: No EKG evidence of acute ischemia or dysrhythmia. Labs including troponin are negative. On reevaluation patient is feeling better, resting comfortably, vital signs now stable. I do feel patient is stable for discharge home at this time with followup to their doctor, and return here if symptoms return or worsen. Agreeable to outpatient management. Lab Data 10/10/24 11:31 10/10/24 11:31 Labs: Lab Results 07/14/25 07/14/25 Range/Units 11:31 11:32 WBC 6.4 (4.5-10.0) K/mm3 RBC 4.60 (4.2-5.4) M/mm3 Hgb 12.4 (12.0-15.0) g/dL Hct 38.7 (37.0-47.0) % MCV 84.1 (80-100) fl MCH 27.0 (26-34) pg MCHC 32.0 (32-36) g/dl RDW 13.2 (11.5-14.5) % Plt Count 355 (150-375) k/mm3 MPV 9.4 (7.4-10.4) fl Immature Gran % (Auto) 0.3 (0-0.5) % Neut % (Auto) 64.1 (45.5-73.1) % Lymph % (Auto) 26.9 (18.3-44.2) % [place] % (Auto) 6.6 (2.6-8.5) % Eos % (Auto) 1.6 (0-4.4) % Baso % (Auto) 0.5 (0.2-1.2) % Lymph # (Auto) 1.71 (0.9-3.2) K/mm3 [place] # (Auto) 0.4 (0.1-0.6) K/mm3 Eos # (Auto) 0.1 (0-0.3) K/mm3 Baso # (Auto) 0.0 (0.0-0.1) K/mm3 Abs Immat Gran (auto) 0.02 (0.00-0.031) K/mm3 Absolute Neuts (auto) 4.1 (1.3-6.7) K/mm3 Absolute Nucleated RBC 0.000 (0.0-0.012) K/mm3 Nucleated RBC % 0.0 (0.0-0.2) % PT 13.7 (11.1-14.7) Seconds INR 1.0 APTT 27.4 (22.3-36.8) Seconds Sodium 137 (137-145) mmol/L Potassium 4.2 (3.4-5.0) mmol/L Chloride 105 (98-107) mmol/L Carbon Dioxide 21 L (22-30) mmol/L Anion Gap 11 (4-12) mmol/L BUN 8 (7-17) mg/dL Creatinine 0.77 (0.7-1.0) mg/dL Estim Creat Clear Calc 103 ml/min Estimated GFR > 60 (59 - ) Glucose 197 H (65-110) mg/dL Calcium 9.4 (8.4-10.2) mg/dL Total Bilirubin 0.4 (0.2-1.3) mg/dL AST 26 (14-36) U/L ALT 17 (6-35) U/L Alkaline Phosphatase 83 (38-126) U/L Troponin I < 0.012 (0.000-0.034) ng/mL Total Protein 8.0 (6.3-8.2) g/dL Albumin 4.6 (3.5-5.1) g/dL Lipase 29 (23-300) U/L Discharge Plan Discharge Clinical Impression: Atypical chest pain Patient Disposition: Home Condition: Stable Instructions: Chest Pain (ED) Additional Instructions: Thankfully your blood tests and x-rays today looked normal. Please follow up with your doctor and let them know about the medication error; you can always return for any further issues. Patient Language: Tajik Prescriptions: No Action clonazepam 0.5 mg tablet 0.5 mg PO DAILY insulin lispro 100 unit/mL solution 100 unit continuous subcutaneous infusion DIRECTED escitalopram oxalate 10 mg tablet 10 mg PO DIRECTED clindamycin HCl 300 mg capsule 300 mg PO Q8H 10 Days Qty: 30 0RF lamotrigine 100 mg tablet 100 mg PO DAILY bupropion HCl 150 mg tablet extended release 24 hr 150 mg PO DAILY doxycycline hyclate 100 mg tablet 100 mg PO BID 7 Days Qty: 14 0RF dextroamphetamine-amphetamine [Adderall XR] 20 mg capsule,extended release 24hr 20 mg PO DAILY ibuprofen 400 mg tablet 400 mg PO Q6H PRN (Reason: pain) Qty: 30 0RF acetaminophen [Tylenol] 325 mg capsule 325 mg PO Q6H PRN (Reason: pain) Qty: 30 0RF naproxen 375 mg tablet 375 mg PO BID Qty: 14 0RF Follow-up/Referrals: UNKNOWN,DOCTOR [Primary Care Provider] -
[2024-10-10 12:52] VITALS: BP 127/83; PULSE 84; RESP 16; O2SAT 98
== END 2024-10-10 12:58 | disposition home or self-care (01) ==
PROVIDERS: Emergency Provider Emergency Medicine
DX: R07.89 Other chest pain (principal); F41.9 Anxiety disorder, unspecified; E10.9 Type 1 diabetes mellitus without complications; Z79.4 Long term (current) use of insulin; F31.81 Bipolar II disorder; Z87.891 Personal history of nicotine dependence
CPT/HCPCS: 36415; 71046; 80053; 83690; 84484; 85025; 85610; 85730; 93005; 99284; A9270

== ENCOUNTER 2024-11-09 09:59 | Emergency (ER) | payer OTHER, SELFPAY ==
--- NOTE | 2024-11-09 10:08 | ECG_ITS ---
Test Date: 2024-11-09 10:13:11 Measurements Intervals [place] Rate: 81 P: 59 RI: 142 QRS: 60 QRSD: 110 T: 35 QT: 360 QTc: 420 Interpretive Statements SINUS RHYTHM POSSIBLE LEFT ATRIAL ENLARGEMENT INCOMPLETE RIGHT BUNDLE BRANCH BLOCK BORDERLINE ECG Compared to ECG 10/10/2024 11:22:31 No significant changes Electronically Signed On 11-09-2024 10:16:50 CDT by Jarrett Saab D.O.
--- OUTSIDE RECORDS SUMMARY | 2024-11-09 10:10 | XMS_ITS | Patient Health Record ---
Author Organization [facility] Address [address] [facility] [address] [place] [address] Care Team Providers Care Stapling Machine Operator Name Role Phone Gael Long Unavailable [phone] Reason For Referral No Information Medications Medication SIG (Take, Route, Frequency, Duration) Notes Start Date End Date Status DULoxetine HCl 30 MG Oral Active Amphetamine-Dextroamph et ER 25 MG Oral Active ProAir HFA 108 (90 Base) MCG/ACT Inhalation Active Virtussin A/C 100-10 MG/5ML Oral Active Classic 28 mg iron- 800 mcg Oral *Pick strength-form from DCITS for eRX* Active Sertraline HCl 100 MG Oral Active Trintellix 20 MG Oral Act laura Amoxicillin 500 MG Oral A ctive clonazePAM 0.5 MG Oral Ac tive Insulin Lispro (1 Unit Dial) 100 UNIT/ML Subcutaneous Active FREESTYLE KRISTINA 14 DAY SENSOR KIT *Reorder from DCITS for eRx and Interaction Alerts* Active FREESTYLE PRECISION ELOISE In Vitro *Reorder from DCITS for eRx and Interaction Alerts* Active lamoTRIgine 25 MG Oral Ac tive Adderall XR 25 MG Oral Ac tive FREESTYLE KRISTINA 2 SENSOR KIT *Reorder from DCITS for eRx and Interaction Alerts* Active INSULIN ASPART (U-100) 100 UNIT/ML (3 ML) SUBCUTANEOUS PEN *Reorder from DCITS for eRx and Interaction Alerts* Active Sertraline [...] U-100 100 UNIT/ML SUBCUTANEOUS SOLUTION *Reorder from DCITS for eRx and Interaction Alerts* Active Basaglar KwikPen 100 UNIT/ML Subcutaneous Active Fluconazole 150 MG Oral A ctive Plan Of Treatment No Information Insurance Providers Payer Name Payer Address Payer Phone Subscriber Number Group Number Insured Name Patient Relationship to Insured Coverage Start Date Coverage End Date [employer] [address] [place] [phone] [id number] ARELI MATHIAS Spouse - patient is the spouse of the insured
[2024-11-09 10:14] VITALS: BP 139/75; PULSE 86; RESP 18; TEMP 36.4; O2SAT 100
[2024-11-09] MEDS: ASPIRIN 81 MG CHEWABLE TABLET 324 MG PO (10:37)
--- NOTE | 2024-11-09 10:40 | ED_ITS ---
HPI - Chest Pain General Chief Complaint: Chest Pain Stated Complaint: chest pain Time Seen by Provider: 11/09/24 10:30 Source: patient and RN notes reviewed Mode of arrival: ambulatory Limitations: no limitations History of Present Illness HPI narrative: 29-year-old female presents to the [facility] complaining of chest pain/epigastric pain that started approximately 5 hours ago. Patient her symptoms will grew up reporting having epigastric pain that then radiated up into her chest into her left arm and shoulder. Patient reports a pulsing sensation throughout her chest. Patient denies any shortness of breath, breathing problems, nausea, vomiting, jaw pain, dizziness, lightheadedness, diaphoresis, or any other symptoms. Patient took Prilosec this morning without any relief. Patient also reports the pain gets worse when she is exerting herself. Patient denies any injuries. Patient is a nonsmoker. Patient denies any history of hypertension, hyperlipidemia. Patient is a type 1 diabetic. Patient says she has a history of anxiety and takes anxiety medications for it. Patient says the pain is not got any better. Patient was seen a month ago in the ER for chest tightness due to under dosing of her medications from the pharmacy error and was discharged home with a negative cardiac workup. Related Data Home Medications ?Medication ?Instructions ?Recorded ?Confirmed ?Last Taken ?Type dextroamphetamine-amphetamine ER 20 mg PO DAILY 04/24/19 07/11/24 08/05/21 History 20 mg 24hr capsule,extend release (Adderall XR) clonazepam 0.5 mg tablet 0.5 mg PO DAILY 11/19/19 07/11/24 08/05/21 History bupropion HCl 150 mg 24 hr tablet, 150 mg PO DAILY 04/23/21 07/11/24 08/05/21 History extended release lamotrigine 100 mg tablet 100 mg PO DAILY 04/23/21 07/11/24 08/04/21 History insulin lispro 100 unit/mL 100 unit continuous subcutaneous 07/26/21 07/11/24 08/05/21 History subcutaneous solution infusion DIRECTED escitalopram oxalate 10 mg tablet 10 mg PO DIRECTED 10/21/22 07/11/24 Unknown History Allergies Allergy/AdvReac Type Severity Reaction Status Date / Time No Known Allergies Allergy Verified 10/10/24 11:23 Review of Systems Review of Systems: CONSTITUTIONAL: Denies fever, chills, or sweats. EYES: Denies visual changes, redness, or discharge. ENT: Denies rhinorrhea, congestion, sore throat, or otalgia. CARDIOVASCULAR: Positive for chest pain, left arm/shoulder pain. Negative for dizziness, lightheadedness, palpitations, or edema. RESPIRATORY: Denies cough, difficulty breathing, or dyspnea. GASTROINTESTINAL: Denies abdominal pain, nausea, vomiting, or diarrhea. GENITOURINARY: Denies dysuria or hematuria. SKIN: Denies rash or itching. MUSCULOSKELETAL: Denies back pain, joint pain, or myalgia. NEUROLOGIC: Denies headache, numbness, or weakness. PSYCHIATRIC: Denies anxiety or depression. All other systems reviewed are negative, except as documented in HPI. [facility] Past Medical History Medical History Type 1 diabetes Bipolar 2 disorder SVT (supraventricular tachycardia) Surgical History Surgical History No pertinent past surgical history Social History Social History Smoking status: Former smoker Gender identity (if verbalized by the patient): Female Comments At the time of my signature, I reviewed and agree with the nursing past medical, surgical, social, and family history. There is no relevant family history pertinent to the patient complaint. Exam Narrative: GENERAL: This is a well-nourished, well-developed adult, in no apparent distress. They are non ill-appearing, nontoxic appearing. HEAD: normocephalic, atraumatic. EYES: Sclera clear/white. Conjunctiva normal. Vision is grossly intact. Extraocular movements intact EARS: External ears normal, Hearing grossly intact. NOSE: External nose normal THROAT: Mucous membranes moist, NECK: Neck supple, non-tender without lymphadenopathy, masses or thyromegaly. CHESTWALL: Nontender to palpation. No accessory muscle use or retractions. No flail chest segment. CARDIOVASCULAR: Regular rate and rhythm without murmurs, gallops, or rubs. RESPIRATORY: Clear to auscultation. Breath sounds equal bilaterally. No wheezes, rales, or rhonchi. GASTROINTESTINAL: Abdomen soft, non-tender, nondistended. Bowel sounds are active. No hepato-splenomegaly, or palpable masses. No guarding or rigidity. No rebound tenderness. SKIN: warm, Dry, intact with no suspicious lesions or rash, good texture and turgor. NEURO: awake, alert, and oriented to person, place and time. There were no obvious focal neurologic abnormalities. EXTREMITIES: No joint tenderness, effusion, or edema noted. Course Course Emergency Course: Portions of this record may have been created with voice recognition software Level of Care: Express Care Visit Vital Signs Vital signs: Vital Signs Temperature 97.5 F L 11/09/24 10:14 Pulse Rate 86 11/09/24 10:14 Respiratory Rate 18 11/09/24 10:14 Blood Pressure 139/75 11/09/24 10:14 Pulse Oximetry 100 11/09/24 10:14 Oxygen Delivery Room Air 11/09/24 10:14 Temperature 97.5 F L 11/09/24 10:14 Pulse Rate 86 11/09/24 10:14 Respiratory Rate 18 11/09/24 10:14 Blood Pressure 139/75 11/09/24 10:14 Pulse Oximetry 100 11/09/24 10:14 Oxygen Delivery Room Air 11/09/24 10:14 Reviewed Transfer Transfered to: [place] Transportation: Other (Private vehicle, patient offered EMS but she declined.) Transfer rationale: Chest pain, patient requiring higher level care. Accepting physician: Rosie NORIEGA MDM - Chest Pain MDM Narrative Medical decision making narrative: EKG is sinus rhythm without any ischemic findings. Possible incomplete right bundle-branch block. EKG is unchanged compared to previous EKG last month. [place] heart score 3. Symptoms are concerning, cannot rule out cardiac etiology given symptoms and history of diabetes. Given patient's symptoms, it is recommend the patient seek a higher level care and proceed immediately to the emergency department. Patient is agreeable to go to [facility] [place] ER. Her colored [facility] ER and spoke with Rosie NORIEGA who is aware this patient accepted the patient for transfer. Patient given 4 baby aspirins. Offered patient EMS to take her to the hospital and she declined, patient says she will take herself via private vehicle. Patient is hemodynamically stable to transfer herself to the hospital. Patient is nontoxic appearing in no apparent distress. Patient advised to remain NPO and proceed immediately to the ER. Differential Diagnosis Differential diagnosis: Likely other (Acute coronary syndrome, NSTEMI, gastritis, indigestion, heartburn, anxiety, unstable angina) ECG Data EKG #1: ECG completion date: 11/09/24 ECG completion time: 10:13 Prior ECG tracings: available for review EKG Interpretation: normal rate, sinus rhythm, no ectopy, no ST changes, normal QRS, normal QT, NL axis and no acute changes Critical Care Time Critical Care Time Critical Care Time: No Discharge Plan Discharge Clinical Impression: Chest pain Qualifiers: Chest pain type: unspecified Qualified Code(s): R07.9 - Chest pain, unspecified Patient Disposition: Acute Care Hospital Condition: Stable Patient Language: Sinhala Prescriptions: No Action clonazepam 0.5 mg tablet 0.5 mg PO DAILY insulin lispro 100 unit/mL solution 100 unit continuous subcutaneous infusion DIRECTED escitalopram oxalate 10 mg tablet 10 mg PO DIRECTED clindamycin HCl 300 mg capsule 300 mg PO Q8H 10 Days Qty: 30 0RF lamotrigine 100 mg tablet 100 mg PO DAILY bupropion HCl 150 mg tablet extended release 24 hr 150 mg PO DAILY doxycycline hyclate 100 mg tablet 100 mg PO BID 7 Days Qty: 14 0RF dextroamphetamine-amphetamine [Adderall XR] 20 mg capsule,extended release 24hr 20 mg PO DAILY ibuprofen 400 mg tablet 400 mg PO Q6H PRN (Reason: pain) Qty: 30 0RF acetaminophen [Tylenol] 325 mg capsule 325 mg PO Q6H PRN (Reason: pain) Qty: 30 0RF naproxen 375 mg tablet 375 mg PO BID Qty: 14 0RF Follow-up/Referrals: Jose,Sohail [Other] Time of Disposition: 10:40
== END 2024-11-09 10:45 | disposition short-term general hospital (02) ==
DX: R07.9 Chest pain, unspecified (principal); E10.9 Type 1 diabetes mellitus without complications; Z79.4 Long term (current) use of insulin; F31.81 Bipolar II disorder
CPT/HCPCS: 93005; 99213; A9270; G0463

== ENCOUNTER 2024-11-09 11:00 | Emergency (ER) | payer OTHER, SELFPAY ==
--- NOTE | ~2024-11-09 | XR_ITS ---
EXAMINATION: XR chest 2V 11/09/2024 12:41 INDICATION: Chest pain. Cardiac ablation. PROCEDURE: 2 view chest COMPARISON: 10/10/2024 FINDINGS: The lungs are clear. The cardiomediastinal silhouette is within normal limits. There are no pleural effusions. There is no pneumothorax suspected. IMPRESSION: 1: NO ACUTE CARDIOPULMONARY DISEASE. Reviewed, dictated and finalized at location A.
[2024-11-09 11:04] VITALS: BP 139/80; PULSE 85; RESP 14; TEMP 36.7; O2SAT 100
--- NOTE | 2024-11-09 11:04 | ECG_ITS ---
Test Date: 2024-11-09 11:24:59 Measurements Intervals [place] Rate: 82 P: 55 TN: 138 QRS: 50 QRSD: 100 T: 26 QT: 356 QTc: 416 Interpretive Statements SINUS RHYTHM INCOMPLETE RIGHT BUNDLE BRANCH BLOCK BASELINE ARTIFACT- I, II, AVR, AVL, AVF BORDERLINE ECG Compared to ECG 11/09/2024 10:13:11 No significant changes Electronically Signed On 11-09-2024 11:41:19 CDT by Jarrett Saab D.O.
--- OUTSIDE RECORDS SUMMARY | 2024-11-09 11:06 | XMS_ITS | Encounter Summary ---
Author Organization [facility] Address [address] [place] [id number] Care Team Providers Care Design Printer Balloon Name Role Phone Sohail Garcia MD Primary Care Provider [phone] Sohail Garcia MD Unavailable [phone] Encounter Details Date Type Department Care Team (Late Contact Info) Description 07/20/2024 MyChart Message Enc [address] [address] Sohail Garcia MD [address] [place] [address]. [place] [address] Antibiotics Social History Tobacco Use [...] Sex Assigned at Female 05/30/2024 9:34 AM CLASSIFIED ADVERTISING MANAGER Legal Sex Female 2:28 PM CDT Gender Identity Female 07/15/2024 1:22 PM CDT Sexual Orientation Not on file documented as of this encounter Plan of Treatment Upcoming Encounters Date Type Department Care Team (Late Contact Info) Description 12/02/2024 7:00 AM CDT Office Visit [address] [address] Sohail Garcia MD [address] [place] [address]. [place] [address] documented as of this encounter Visit Diagnoses Not on filedocumented in this encounter Additional Health Concerns Assessment Noted Time PHQ-9 Depression Total Score: 13 024 3:57 PM CDT documented as of this encounter Care Teams Design Printer Balloon Relationship Specialty Start Date End Date Sohail Garcia MD [address] [place] [address] PCP - General FAMILY PRACTICE 07/12/24 Sohail Garcia MD [address] [place] [address] FAMILY PRACTICE 07/12/24 documented as of this encounter
--- OUTSIDE RECORDS SUMMARY | 2024-11-09 11:06 | XMS_ITS | Clinical Summary ---
Author Organization [facility] Address [address] [place] [address] Care Team Providers Care Composition Floor Setter Name Role Phone Sohail Wilson MD Primary Care Provider [phone] Sohail Wilson MD Unavailable [phone] Allergies No known active allergies Medications [...] (VIAL)Indication s:Type 1 diabetes mellitus without complication ([facility]) Inject 30 Units into the skin nightly at bedtime. 10 mL 2 10/07/19 24 Active insulin lispro (HUMALOG) 100 UNIT/ML patient supplied PUMP Inject into the skin continuous. Active Active Problems Problem Noted Date Diagnosed Date Cellulitis of lip 07/15/2024 Blood blister 05/30/2024 Fatigue, unspecified type 10/07/2023 Cyst of right ovary 08/11/2023 Type 1 diabetes mellitus wit hout complication ([facility]) 08/11/2023 Class 2 severe obesity due t o excess calories with serious comorbidity and body mass index (BMI) of 35.0 to 35.9 in adult 08/11/2023 Bipolar 2 disorder ([facility]) 08/11/2023 Systolic murmur 08/11/2023 Encounters Date Type Department Care Team Description 09/26/[address] [address] Sohail Wilson MD Information 09/09/2024 Results Follow-Up [address] [address] Lauren Osorio MD US PELVIC NON OB COMP TA+TV 09/08/2024 4:06 PM CDT - 09/08/2024 11:59 PM CDT Hospital Encounter [facility] Ultrasound [address] [place] [address] Sohail iWlson MD Discharge Disposition: Home or Self Care (Routine Discharge) 09/08/2024 Travel 08/30/2024 11:05 AM CDT - 08/30/2024 11:59 PM CDT Hospital Encounter [facility] Laboratory [address] [address] Sohail Wilson MD Discharge Disposition: Home or Self Care (Routine Discharge) 08/30/2024 8:40 AM CDT Office Visit [address] [address] Sohail Wilson MD Diabetes 08/30/2024 Results Follow-Up [address] [address] Sohail Wilson MD LIPID PANEL, COMPREHENSIVE METABOLIC PANEL, HEMOGLOBIN, GLYCOSYLATED, Additional followed-up results: 3 08/30/2024 Travel from Last 3 Months Immunizations Immunization [...] Sex Assigned at Female 05/30/2024 9:34 AM REINFORCING BAR SETTER Legal Sex Female 2:28 PM CDT Gender [...] Description 12/02/2024 7:00 AM CDT Office Visit [facility] - [place] [address] [place] [address] Sohail Wilson MD [address] [place] [address] Health Maintenance Due Date Last Done Comments [...] 11/30/2024 07/15/2024, 05/30/2024 Hemoglobin A1C 03/01/2025 08/30/2024, 06/0 05/2024, 06/08/2024, Additional history exists Annual Physical 08/30/2025 08/30/2024, 08/11/2023 Kidney Health Evaluation 08/30/2025 08/30/2024 Lipid Panel 08/30/2025 08/30/2024, 07/29, 04/15/2020 DTaP, Tdap and Td Vaccines (4 - Td or Tdap) 11/05/2030 11/05/2020, 01/22/2017, 09/08/2005 HPV Vaccines Completed 09/06/2007, 02/0 07/2007, 02/02/2007 Meningococcal Vaccine Aged Out 01/02/2012, 007 No longer eligible based on patient's age to complete this topic Pneumococcal Vaccine: Pediatrics (0 to 5 Years) and At-Risk Patients (6 to 49 Years) Completed 08/11/2023 Hepatitis C Completed 08/19/2023 COVID-19 Vaccine Completed 05/30/2024, , 06/19/2020, Additional history exists PHQ-2 (Physician [place]) Completed 08/30/2024 Meningococcal B Vaccine Aged Out [...] 1 diabetes mellitus without complication (CMS/HCC HHS/HCC) CBC W/DIFF AUTOMATED Routine 08/30/2024 11:25 AM CDT Type 1 diabetes mellitus without complication (CMS/HCC HHS/HCC) HEMOGLOBIN, GLYCOSYLATED Routine 08/30/2024 11:25 AM CDT Type 1 diabetes mellitus without complication (CMS/HCC HHS/HCC) COMPREHENSIVE METABOLIC PANEL Routine 08/30/2024 11:25 [...] 12:14 PM Narrative 09/09/2024 12:29 PM CDT [facility] [address] [facility] [place] [id number] EXAMINATION: US PELVIC NON OB COMP TA+TV EXAM DATE: 09/08/2024 4:22 PM COMPARISON STUDIES: 09/21/2023 CLINICAL HISTORY: right ovarian cyst, RLQ pain . Left lower quadrant pain for 2 weeks. Prior endometrioma removal from region of scar.. LMP 08/21/2024 FINDINGS: Real time ultrasound examination performed by the hyperion analyst of the pelvis through transabdominal and transvaginal [...] Procedure Note Osvaldo Nguyen MD - 09/09/2024 [facility] [address] [place] [address] EXAMINATION: US PELVIC NON OB COMP TA+TV EXAM DATE: 09/08/2024 4:22 PM COMPARISON STUDIES: 09/21/2023 CLINICAL HISTORY: right ovarian cyst, RLQ pain . Left lower quadrantpain for 2 weeks. Prior endometrioma removal from region of C-sectionscar.. LMP 08/21/2024 FINDINGS: Real time ultrasound examination performed by the hyperion analyst of thelvis through transabdominal and transvaginal approach. The uterus [...] - 3.74 uIU/ML 08/30/2024 1:33 PM CDT [facility] Comment: HIGH DOSES OF BIOTIN MAY INTERFERE WITH THIS TEST RESULT. CORRELATION TO CLINICAL HISTORY AND PRESENTATION RECOMMENDED. FREE T4 NOT INDICATED 08/30/2024 11:2 5 AM CDT us Sohail Wilson MD LABORATORY Final Result Performing Organization Address City/[facility]/ZIP Co de Phone Number [facility] [address] [place] [address], [place] [phone] * (ABNORMAL) HEMOGLOBIN, GLYCOSYLATED (08/30/2024 11:25 AM CDT) Only the most recent of2 resultswithin the time period is included. HGB A1C 7.2(H) <5.7 % 08/30/2024 1:48 PM CDT [facility] Comment: ADA GUIDELINES 2010 5.7 TO 6.4% INCREASED RISK OF DIABETES > OR = 6.5% CONSISTENT WITH DIABETES ESTIMATED AVG GLUCOSE 160 mg/dL 08/30/2024 1:48 PM CDT [facility] 08/30/2024 11:2 5 AM CDT us Sohail Wilson MD LABORATORY Final Result Performing Organization Address City/[facility]/ZIP Co de Phone Number [facility] [address] [place] [address], [place] [phone] * (ABNORMAL) COMPREHENSIVE METABOLIC PANEL (08/30/2024 11:25 AM CDT) GLUCOSE 109(H) 70 - 99 MG/DL 08/30/2024 1:33 PM CDT [facility] BUN 12 7 - 18 MG/DL 08/30/2024 1:33 PM CDT [facility] CREATININE S/P/B 0.86 0.55 - 1.02 MG/DL 08/30/2024 1:33 PM CDT [facility] SODIUM S/P/B 139 136 - 145 MMOL/L 08/30/2024 1:33 PM CDT [facility] POTASSIUM S/P/B 4.1 3.5 - 5.1 MMOL/L 08/30/2024 1:33 PM CDT [facility] CHLORIDE S/P/B 108 97 - 115 MMOL/L 08/30/2024 1:33 PM CDT [facility] CO2 24.0 21 - 32 MMOL/L 08/30/2024 1:33 PM CDT [facility] CALCIUM S/P/B 9.4 8.5 - 10.1 MG/DL 08/30/2024 1:33 PM CDT [facility] BILIRUBIN TOTAL S/P/B 0.4 0.2 - 1.2 MG/DL 08/30/2024 1:33 PM CDT [facility] Comment: THIS ASSAY IS NOT RECOMMENDED FOR PATIENTS UNDERGOING TREATMENT WITH ELTROMBOPAG DUE TO THE POTENTIAL FOR FALSELY ELEVATED RESULTS. TOTAL PROTEIN S/P/B 7.5 6.4 - 8.2 G/DL 08/30/2024 1:33 PM CDT [facility] ALBUMIN S/P/B 3.9 3.4 - 5.0 G/DL 08/30/2024 1:33 PM CDT [facility] AST 10(L) 15 - 37 U/L 08/30/2024 1:33 PM CDT [facility] ALT 18 14 - 55 U/L 08/30/2024 1:33 PM CDT [facility] ALKALINE PHOSPHATASE S/P/B 96 50 - 136 U/L 08/30/2024 1:33 PM CDT [facility] ANION GAP 7.0 2 - 10 MMOL/L 08/30/2024 1:33 PM CDT [facility] BUN CREATININE RATIO 14.0 6 - 26 08/30/2024 1:33 PM CDT [facility] A/G RATIO 1.1 1.0 - 2.0 RATIO 08/30/2024 1:33 PM CDT [facility] GFR ESTIMATE >90 >90 ML/MIN/1.7 3 M2 08/30/2024 1:33 PM CDT [facility] Comment: NOTE: eGFR is not [...] CDT Sohail Wilson MD LABORATORY Final Result [facility] [address] [place] [address], * LIPID PANEL (08/30/2024 11:25 AM CDT) CHOLESTEROL 137 <200 MG/DL 08/30/2024 1:33 PM CDT [facility] TRIGLYCERIDES 56 <150 MG/DL 08/30/2024 1:33 PM CDT [facility] HDL 62 >40.0 MG/DL 08/30/2024 1:33 PM CDT [facility] LDL (CALCULATED) 64 <100 MG/DL 08/31/19 1:33 PM CDT [facility] NON HDL CHOLESTEROL 75 <130 MG/DL 08/30 1:33 PM CDT [facility] CHOL/HDL RATIO 2.2 0.0 - 4.5 08/30/2024 1:33 PM CDT [facility] VLDL CALCULATION 11 5 - 55 MG/DL 08/30/2024 1:33 PM CDT [facility] LIPID INTERPRETATION 08/30/2024 1:33 PM CDT [facility] Comment: NIH CONCENSUS REPORT RECOMMENDATIONS: ADULT CHILD LOW RISK: CHOLESTEROL <200 <170 TRIGLYCERIDE <150 --- HDL >=60 --- LDL <100 <110 BORDERLINE: CHOLESTEROL 200-239 170-199 TRIGLYCERIDE 150-199 --- HDL 40-59 --- LDL 100-159 110-129 HIGH RISK: CHOLESTEROL >=240 >=200 TRIGLYCERIDE >=200 --- HDL <40 --- LDL >=160 >=130 08/30/2024 11:2 5 AM CDT Sohail Wilson MD LABORATORY Final Result [facility] [address] [place] [address], [place] [phone] * CBC W/DIFF AUTOMATED (08/30/2024 11:25 AM CDT) WBC 5.79 4.5 - 11.0 x10'3/uL 08/30/2024 1:05 PM CDT [facility] RBC 4.63 4.20 - 5.40 x10'6/uL 08/30/2024 1:05 PM CDT [facility] HGB 12.7 12.0 - 16.0 G/DL 08/30/2024 1:05 PM CDT [facility] HCT 39.6 38.0 - 48.0 % 08/30/2024 1:05 PM CDT [facility] MCV 85.5 81.0 - 99.0 FL 08/30/2024 1:05 PM CDT [facility] MCH 27.4 27.0 - 31.0 PG 08/30/2024 1:05 PM CDT [facility] MCHC 32.1 32.0 - 36.0 G/DL 08/30/2024 1:05 PM CDT [facility] RDW 13.1 11.5 - 14.5 % 08/30/2024 1:05 PM CDT [facility] PLT 368 130 - 400 x10'3/uL 08/30/2024 1:05 PM CDT [facility] MPV 9.9 9.3 - 12.2 FL 08/30/2024 1:05 PM CDT [facility] DIFFERENTIAL TYPE AUTOMATED DIFFERENTIAL 08/30/2024 1:05 PM CDT [facility] NEUTROPHILS % 56.1 % 08/30/2024 1:05 PM CDT [facility] LYMPHOCYTES % 34.2 % 08/30/2024 1:05 PM CDT [facility] MONOCYTES % 6.6 % 08/30/2024 1:05 PM CDT [facility] EOSINOPHILS 2.1 % 08/30/2024 1:05 PM CDT [facility] BASOPHILS 0.7 % 08/30/2024 1:05 PM CDT [facility] IMMATURE GRANS % 0.3 % 08/31/19 1:05 PM CDT [facility] ABS. NEUTROPHILS 3.25 1.80 - 7.70 x10'3/uL 08/30/2024 1:05 PM CDT [facility] ABS. LYMPHOCYTES 1.98 1.00 - 4.80 x10'3/uL 08/30/2024 1:05 PM CDT [facility] ABS. MONOCYTES 0.38 0.24 - 0.86 x10'3/uL 08/30/2024 1:05 PM CDT [facility] ABS. EOSINOPHILS 0.12 0.04 - 0.36 x10'3/uL 08/30/2024 1:05 PM CDT [facility] ABS. BASOPHILS 0.04 0.01 - 0.08 x10'3/uL 08/30/2024 1:05 PM CDT [facility] ABS. IMMATURE GRANULOCYTES 0.02 0.00 - 0.49 x10'3/uL 08/30/2024 1:05 PM CDT [facility] 08/30/2024 11:2 5 AM CDT Sohail Wilson MD LABORATORY Final Result Performing Organization Address City/[facility]/ZIP Co de Phone Number [facility] [address] [place] [address], [place] [phone] * ALBUMIN/CREATININE RATIO, RANDOM URINE (08/30/2024 11:22 AM CDT) CREATININE (U) 90.7 28 - 217 MG/DL 08/30/2024 12:23 PM CDT [facility] MICROALBUMIN (U) 1.1 <2.0 mg/dL 08/31/19 12:23 PM CDT [facility] ALBUMIN/CREAT RATIO 12.1 <30 MG/G 08/30/2024 12:23 PM CDT [facility] URINE SPECIMEN / Unknown 08/30/2024 11:22 AM CDT Sohail Wilson MD URINE ORDERABLES Final Result [facility] [address] [place], [place] [address] [place] [address], * COLLECT.CAPILLARY (FNGR,HEEL,EAR) (08/30/2024) Sohail Wilson MD PROCEDURES-UNRESULTED Final Re sult [facility] * HEPATITIS PANEL,ACUTE (08/19/2023 7:36 AM CDT) HAV IGM NON-REACT POLLO NON-REACT POLLO [facility] Comment: For additional information, please refer to http://Percello/faq/PQY891 (This link is being provided for informational/ educational purposes only.) HEPATITIS B SURFACE AG NON-REACT POLLO NON-REACT POLLO [facility] Comment: For additional information, please refer to http://Percello/faq/TXT332 (This link is being provided for informational/ educational purposes only.) HEP B CORE IGM NON-REACT POLLO NON-REACT POLLO [facility] Comment: For additional information, please refer to http://Percello/faq/OIY782 (This link is being provided for informational/ educational purposes only.) HEPATITIS C AB NON-REACT POLLO NON-REACT POLLO [facility] Comment: HCV antibody was non-reactive. There is no laboratory evidence of HCV infection. In most cases, no further action is required. However, if recent HCV exposure is suspected, a test for HCV RNA (test code 75171) is suggested. For additional information please refer to http://Percello/faq/JBQ63k6 (This link is being provided for informational/ educational purposes only.) 08/19/2023 7:36 AM CDT 08/19/2023 7:37 AM CDT Narrative [facility] - 08/20/2023 7:03 AM CDT FASTING:YES FASTING: YES Resulting Agency Comment Performing Organization Information: Site ID: [place] Name: [facility] Address: [address] [address] Director: Yamileth Carcamo MD Sohail Wilson MD LABORATORY Final Result [facility] [address] [place] [address], [place] * PAP SMEAR WITH HPV (04/17/2021) 04/17/2021 [facility] Scanned SCANNING Final Resu lt from Last 3 Months or Most Recently Relevant to Health Maintenance Insurance [facility] [place] [address] Care Teams Composition Floor Setter Relationship Specialty Start Date End Date Sohail Wilson MD [address] [place] [address] PCP - General FAMILY PRACTICE 07/12/24 Sohail Wilson MD [address] [place] [address] FAMILY PRACTICE 07/12/24
--- OUTSIDE RECORDS SUMMARY | 2024-11-09 11:06 | XMS_ITS | Encounter Summary ---
Author Organization [facility] Address [address] [place] [address] Care Team Providers Care Restorative Rehab Aide Name Role Phone Sohail Garcia MD Primary Care Provider [phone] Sohail Garcia MD Unavailable [phone] Encounter Details Date Type Department Care Team (Late Contact Info) Description 09/09/2024 Results Follow-Up [address] [address] Lauren Osorio MD [address] [place] [address] [place] PELVIC NON OB COMP TA+TV [...] Sex Assigned at Female 05/30/2024 9:34 AM INVERTEBRATE PALEONTOLOGIST Legal Sex Female 2:28 PM CDT Gender Identity Female 07/15/2024 1:22 PM CDT Sexual Orientation Not on file documented as of this encounter Plan of Treatment Upcoming Encounters Date Type Department Care Team (Late Contact Info) Description 12/02/2024 7:00 AM CDT Office Visit [address] [address] Sohail Garcia MD [address] [place] [address]. [place] [address] documented as of this encounter Visit Diagnoses Not on filedocumented in this encounter Additional Health Concerns Assessment Noted Time PHQ-9 Depression Total Score: 13 024 3:57 PM CDT documented as of this encounter Care Teams Restorative Rehab Aide Relationship Specialty Start Date End Date Sohail Garcia MD [address] [place] [address] PCP - General FAMILY PRACTICE 07/12/24 Sohail Garcia MD [address] [place] [address] FAMILY PRACTICE 07/12/24 documented as of this encounter
[2024-11-09 11:28] LABS: Hematocrit 38.0 % (37.0-47.0); Hemoglobin 12.5 g/dL (12.0-15.0); Immature Granulocyte Percent A 0.1 % (0-0.5); Lymphocytes Absolute Auto 2.25 K/mm3 (0.9-3.2); Mean Corpuscular HGB Conc 32.9 g/dl (32-36); Mean Corpuscular Hemoglobin 27.7 pg (26-34); Mean Corpuscular Volume 84.1 fl (80-100); Nucleated Red Blood Cells Absolute Auto 0.000 K/mm3 (0.0-0.012); Nucleated Red Blood Cells Perc 0.0 % (0.0-0.2); Platelet Count Result 355 k/mm3 (150-375); Red Blood Count 4.52 M/mm3 (4.2-5.4); White Blood Count 6.9 K/mm3 (4.5-10.0)
[2024-11-09 11:29] VITALS: BP 139/80; PULSE 74; RESP 16; O2SAT 99
--- NOTE | 2024-11-09 11:34 | PC.NURSE ---
Patient stated she took 324 aspirin at Urgent Care.
--- OUTSIDE RECORDS SUMMARY | 2024-11-09 11:34 | XMS_ITS | Encounter Summary ---
Author Organization [facility] Address [address] [place] [address] Care Team Providers Care Oil Well Engineer Name Role Phone Sohail Garcia MD Primary Care Provider [phone] Sohail Garcia MD Unavailable [phone] Encounter Details Date Type Department Care Team (Late Contact Info) Description 07/20/2024 MyChart Message Enc [address] [address] Sohail Garcia MD [address] [place] [address]. [place] [address] Antibiotics Social History Tobacco Use [...] Sex Assigned at Female 05/30/2024 9:34 AM FINANCIAL QUANTITATIVE ANALYST Legal Sex Female 2:28 PM CDT Gender Identity Female 07/15/2024 1:22 PM CDT Sexual Orientation Not on file documented as of this encounter Plan of Treatment Upcoming Encounters Date Type Department Care Team (Late Contact Info) Description 12/02/2024 7:00 AM CDT Office Visit [address] [address] Sohail Garcia MD [address] [place] [address]. [place] [address] documented as of this encounter Visit Diagnoses Not on filedocumented in this encounter Additional Health Concerns Assessment Noted Time PHQ-9 Depression Total Score: 13 024 3:57 PM CDT documented as of this encounter Care Teams Oil Well Engineer Relationship Specialty Start Date End Date Sohail Garcia MD 1 [place] [address] PCP - General FAMILY PRACTICE 07/12/24 Sohail Garcia MD [address] [place] [address] FAMILY PRACTICE 07/12/24 documented as of this encounter
--- OUTSIDE RECORDS SUMMARY | 2024-11-09 11:34 | XMS_ITS | Encounter Summary ---
Author Organization [facility] Address [address] [place] [address] Care Team Providers Care Library Page Name Role Phone Sohail Garcia MD Primary Care Provider [phone] Sohail Garcia MD Unavailable [phone] Encounter Details Date Type Department Care Team (Late Contact Info) Description 09/09/2024 Results Follow-Up [address] [address] Lauren Osorio MD [address] [place] [address] [place] PELVIC NON OB COMP TA+TV [...] Sex Assigned at Female 05/30/2024 9:34 AM RN INTENSIVE CARE UNIT Legal Sex Female 2:28 PM CDT Gender Identity Female 07/15/2024 1:22 PM CDT Sexual Orientation Not on file documented as of this encounter Plan of Treatment Upcoming Encounters Date Type Department Care Team (Late Contact Info) Description 12/02/2024 7:00 AM CDT Office Visit [address] [address] Sohail Garcia MD [address] [place] [address]. [place] [address] documented as of this encounter Visit Diagnoses Not on filedocumented in this encounter Additional Health Concerns Assessment Noted Time PHQ-9 Depression Total Score: 13 024 3:57 PM CDT documented as of this encounter Care Teams Library Page Relationship Specialty Start Date End Date Sohail Garcia MD 1 [place] [address] PCP - General FAMILY PRACTICE 07/12/24 Sohail Garcia MD [address] [place] [address] FAMILY PRACTICE 07/12/24 documented as of this encounter
--- OUTSIDE RECORDS SUMMARY | 2024-11-09 11:34 | XMS_ITS | Clinical Summary ---
Author Organization [facility] Address [address] [place] [address] Care Team Providers Care Insert Operator Name Role Phone Sohail Wilson MD Primary Care Provider [phone] Sohail Wilson MD Unavailable [phone] Allergies No known active allergies Medications [...] (VIAL)Indication s:Type 1 diabetes mellitus without complication ([facility] [place]) Inject 30 Units into the skin nightly at bedtime. 10 mL 2 10/07/19 24 Active insulin lispro (HUMALOG) 100 UNIT/ML patient supplied PUMP Inject into the skin continuous. Active Active Problems Problem Noted Date Diagnosed Date Cellulitis of lip 07/15/2024 Blood blister 05/30/2024 Fatigue, unspecified type 10/07/2023 Cyst of right ovary 08/11/2023 Type 1 diabetes mellitus wit hout complication ([facility]) 08/11/2023 Class 2 severe obesity due t o excess calories with serious comorbidity and body mass index (BMI) of 35.0 to 35.9 in adult 08/11/2023 Bipolar 2 disorder ([facility]) 08/11/2023 Systolic murmur 08/11/2023 Encounters Date Type Department Care Team Description 09/26/[address] [phone] Sohail Wilson MD Information 09/09/2024 Results Follow-Up [address] [phone] Lauren Osorio MD US PELVIC NON OB COMP TA+TV 09/08/2024 4:06 PM CDT - 09/08/2024 11:59 PM CDT Hospital Encounter [facility] Ultrasound [address] [place] [address] Sohail Wilson MD Discharge Disposition: Home or Self Care (Routine Discharge) 09/08/2024 Travel 08/30/2024 11:05 AM CDT - 08/30/2024 11:59 PM CDT Hospital Encounter [facility] [address] [address] Sohail Wilson MD Discharge Disposition: Home or Self Care (Routine Discharge) 08/30/2024 8:40 AM CDT Office Visit [address] [phone] Sohail Wilson MD Diabetes 08/30/2024 Results Follow-Up [address] [phone] Sohail Wilson MD LIPID PANEL, [...] Sex Assigned at Female 05/30/2024 9:34 AM [employer]OVING [employer]ER Legal Sex Female 2:28 PM CDT Gender [...] Description 12/02/2024 7:00 AM CDT Office Visit [facility] [place] [address] [place] [address] Sohail Wilson MD [address] [place] [address] Health Maintenance Due Date Last [...] , 06/19/2020, Additional history exists PHQ-2 (Physician [employer] [place]) Completed 08/30/2024 Meningococcal B Vaccine Aged Out [...] 12:14 PM Narrative 09/09/2024 12:29 PM CDT [facility] [address] [facility]. [place] [id number] EXAMINATION: US PELVIC NON OB COMP TA+TV EXAM DATE: 09/08/2024 4:22 PM COMPARISON STUDIES: 09/21/2023 CLINICAL HISTORY: right ovarian cyst, RLQ pain . Left lower quadrant pain for 2 weeks. Prior endometrioma removal from region of scar.. LMP 08/21/2024 FINDINGS: Real time ultrasound examination performed by the hand fur cleaner of the pelvis through transabdominal and transvaginal [...] Procedure Note Osvaldo Nguyen MD - 09/09/2024 [facility] [address] [place] [address] EXAMINATION: US PELVIC NON OB COMP TA+TV EXAM DATE: 09/08/2024 4:22 PM COMPARISON STUDIES: 09/21/2023 CLINICAL HISTORY: right ovarian cyst, RLQ pain . Left lower quadrantpain for 2 weeks. Prior endometrioma removal from region of C-sectionscar.. LMP 08/21/2024 FINDINGS: Real time ultrasound examination performed by the hand fur cleaner of thelvis through transabdominal and transvaginal approach. [...] - 3.74 uIU/ML 08/30/2024 1:33 PM CDT [facility] Comment: HIGH DOSES OF BIOTIN MAY INTERFERE WITH THIS TEST RESULT. CORRELATION TO CLINICAL HISTORY AND PRESENTATION RECOMMENDED. FREE T4 NOT INDICATED 08/30/2024 11:2 5 AM CDT us Sohail Wilson MD LABORATORY Final Result Performing Organization Address City/[facility]/ZIP Co de Phone Number [facility] [address] [place] [address], [place] [phone] * (ABNORMAL) HEMOGLOBIN, GLYCOSYLATED (08/30/2024 11:25 AM CDT) Only the most recent of2 resultswithin the time period is included. HGB A1C 7.2(H) <5.7 % 08/30/2024 1:48 PM CDT [facility] Comment: ADA GUIDELINES 2010 5.7 TO 6.4% INCREASED RISK OF DIABETES > OR = 6.5% CONSISTENT WITH DIABETES ESTIMATED AVG GLUCOSE 160 mg/dL 08/30/2024 1:48 PM CDT [facility] 08/30/2024 11:2 5 AM CDT us Sohail Wilson MD LABORATORY Final Result Performing Organization Address City/[facility]/ZIP Co de Phone Number [facility] [address] [place] [address], [place] [phone] * (ABNORMAL) COMPREHENSIVE METABOLIC PANEL (08/30/2024 11:25 AM CDT) GLUCOSE 109(H) 70 - 99 MG/DL 08/30/2024 1:33 PM CDT [facility] BUN 12 7 - 18 MG/DL 08/30/2024 1:33 PM CDT [facility] CREATININE S/P/B 0.86 0.55 - 1.02 MG/DL 08/30/2024 1:33 PM CDT [facility] SODIUM S/P/B 139 136 - 145 MMOL/L 08/30/2024 1:33 PM CDT [facility] POTASSIUM S/P/B 4.1 3.5 - 5.1 MMOL/L 08/30/2024 1:33 PM CDT [facility] CHLORIDE S/P/B 108 97 - 115 MMOL/L 08/30/2024 1:33 PM CDT [facility] CO2 24.0 21 - 32 MMOL/L 08/30/2024 1:33 PM CDT [facility] CALCIUM S/P/B 9.4 8.5 - 10.1 MG/DL 08/30/2024 1:33 PM CDT [facility] BILIRUBIN TOTAL S/P/B 0.4 0.2 - 1.2 MG/DL 08/30/2024 1:33 PM CDT [facility] Comment: THIS ASSAY IS NOT RECOMMENDED FOR PATIENTS UNDERGOING TREATMENT WITH ELTROMBOPAG DUE TO THE POTENTIAL FOR FALSELY ELEVATED RESULTS. TOTAL PROTEIN S/P/B 7.5 6.4 - 8.2 G/DL 08/30/2024 1:33 PM CDT [facility] ALBUMIN S/P/B 3.9 3.4 - 5.0 G/DL 08/30/2024 1:33 PM CDT [facility] AST 10(L) 15 - 37 U/L 08/30/2024 1:33 PM CDT [facility] ALT 18 14 - 55 U/L 08/30/2024 1:33 PM CDT [facility] ALKALINE PHOSPHATASE S/P/B 96 50 - 136 U/L 08/30/2024 1:33 PM CDT [facility] ANION GAP 7.0 2 - 10 MMOL/L 08/30/2024 1:33 PM CDT [facility] BUN CREATININE RATIO 14.0 6 - 26 08/30/2024 1:33 PM CDT [facility] A/G RATIO 1.1 1.0 - 2.0 RATIO 08/30/2024 1:33 PM CDT [facility] GFR ESTIMATE >90 >90 ML/MIN/1.7 3 M2 08/30/2024 1:33 PM CDT [facility] Comment: NOTE: eGFR is [...] CDT Sohail Wilson MD LABORATORY Final Result [facility] [address] [place] [address], * LIPID PANEL (08/30/2024 11:25 AM CDT) CHOLESTEROL 137 <200 MG/DL 08/30/2024 1:33 PM CDT [facility] TRIGLYCERIDES 56 <150 MG/DL 08/30/2024 1:33 PM CDT [facility] HDL 62 >40.0 MG/DL 08/30/2024 1:33 PM CDT [facility] LDL (CALCULATED) 64 <100 MG/DL 08/31/19 1:33 PM CDT [facility] NON HDL CHOLESTEROL 75 <130 MG/DL 08/30 1:33 PM CDT [facility] CHOL/HDL RATIO 2.2 0.0 - 4.5 08/30/2024 1:33 PM CDT [facility] VLDL CALCULATION 11 5 - 55 MG/DL 08/30/2024 1:33 PM CDT [facility] LIPID INTERPRETATION 08/30/2024 1:33 PM CDT [facility] Comment: [facility] CONCENSUS REPORT RECOMMENDATIONS: ADULT CHILD LOW RISK: CHOLESTEROL <200 <170 TRIGLYCERIDE <150 --- HDL >=60 --- LDL <100 <110 BORDERLINE: CHOLESTEROL 200-239 170-199 TRIGLYCERIDE 150-199 --- HDL 40-59 --- LDL 100-159 110-129 HIGH RISK: CHOLESTEROL >=240 >=200 TRIGLYCERIDE >=200 --- HDL <40 --- LDL >=160 >=130 08/30/2024 11:2 5 AM CDT Sohail Wilson MD LABORATORY Final Result [facility] [address] [place] [id number], [place] [phone] * CBC W/DIFF AUTOMATED (08/30/2024 11:25 AM CDT) WBC 5.79 4.5 - 11.0 x10'3/uL 08/30/2024 1:05 PM CDT [facility] RBC 4.63 4.20 - 5.40 x10'6/uL 08/30/2024 1:05 PM CDT [facility] HGB 12.7 12.0 - 16.0 G/DL 08/30/2024 1:05 PM CDT [facility] HCT 39.6 38.0 - 48.0 % 08/30/2024 1:05 PM CDT [facility] MCV 85.5 81.0 - 99.0 FL 08/30/2024 1:05 PM CDT [facility] MCH 27.4 27.0 - 31.0 PG 08/30/2024 1:05 PM CDT [facility] MCHC 32.1 32.0 - 36.0 G/DL 08/30/2024 1:05 PM CDT [facility] RDW 13.1 11.5 - 14.5 % 08/30/2024 1:05 PM CDT [facility] PLT 368 130 - 400 x10'3/uL 08/30/2024 1:05 PM CDT [facility] MPV 9.9 9.3 - 12.2 FL 08/30/2024 1:05 PM CDT [facility] DIFFERENTIAL TYPE AUTOMATED DIFFERENTIAL 08/30/2024 1:05 PM CDT [facility] NEUTROPHILS % 56.1 % 08/30/2024 1:05 PM CDT [facility] LYMPHOCYTES % 34.2 % 08/30/2024 1:05 PM CDT [facility] MONOCYTES % 6.6 % 08/30/2024 1:05 PM CDT [facility] EOSINOPHILS 2.1 % 08/30/2024 1:05 PM CDT [facility] BASOPHILS 0.7 % 08/30/2024 1:05 PM CDT [facility] IMMATURE GRANS % 0.3 % 08/31/19 1:05 PM CDT [facility] ABS. NEUTROPHILS 3.25 1.80 - 7.70 x10'3/uL 08/30/2024 1:05 PM CDT [facility] ABS. LYMPHOCYTES 1.98 1.00 - 4.80 x10'3/uL 08/30/2024 1:05 PM CDT [facility] ABS. MONOCYTES 0.38 0.24 - 0.86 x10'3/uL 08/30/2024 1:05 PM CDT [facility] ABS. EOSINOPHILS 0.12 0.04 - 0.36 x10'3/uL 08/30/2024 1:05 PM CDT [facility] ABS. BASOPHILS 0.04 0.01 - 0.08 x10'3/uL 08/30/2024 1:05 PM CDT [facility] ABS. IMMATURE GRANULOCYTES 0.02 0.00 - 0.49 x10'3/uL 08/30/2024 1:05 PM CDT [facility] 08/30/2024 11:2 5 AM CDT Sohail Wilson MD LABORATORY Final Result Performing Organization Address City/[facility]/ZIP Co de Phone Number [facility] [address] [place] [address], [place] [phone] * ALBUMIN/CREATININE RATIO, RANDOM URINE (08/30/2024 11:22 AM CDT) CREATININE (U) 90.7 28 - 217 MG/DL 08/30/2024 12:23 PM CDT [facility] MICROALBUMIN (U) 1.1 <2.0 mg/dL 08/31/19 12:23 PM CDT [facility] ALBUMIN/CREAT RATIO 12.1 <30 MG/G 08/30/2024 12:23 PM CDT [facility] URINE SPECIMEN / Unknown 08/30/2024 11:22 AM CDT Sohail Wilson MD URINE ORDERABLES Final Result [facility] [address] [place], [place] [address] [place] [address], * COLLECT.CAPILLARY (FNGR,HEEL,EAR) (08/30/2024) Sohail Wilson MD PROCEDURES-UNRESULTED Final Re sult [facility] * HEPATITIS PANEL,ACUTE (08/19/2023 7:36 AM CDT) HAV IGM NON-REACT POLLO NON-REACT POLLO [facility] Comment: For additional information, please refer to http://Social Tables/faq/IWO207 (This link is being provided for informational/ educational purposes only.) HEPATITIS B SURFACE AG NON-REACT POLLO NON-REACT POLLO [facility] Comment: For additional information, please refer to http://Social Tables/faq/PTB509 (This link is being provided for informational/ educational purposes only.) HEP B CORE IGM NON-REACT POLLO NON-REACT POLLO [facility] Comment: For additional information, please refer to http://Social Tables/faq/XPS316 (This link is being provided for informational/ educational purposes only.) HEPATITIS C AB NON-REACT POLLO NON-REACT POLLO [facility] Comment: HCV antibody was non-reactive. There is no laboratory evidence of HCV infection. In most cases, no further action is required. However, if recent HCV exposure is suspected, a test for HCV RNA (test code 68532) is suggested. For additional information please refer to http://Social Tables/faq/UHS50n1 (This link is being provided for informational/ educational purposes only.) 08/19/2023 7:36 AM CDT 08/19/2023 7:37 AM CDT Narrative [facility] - [facility] - 08/20/2023 7:03 AM CDT FASTING:YES FASTING: YES Resulting Agency Comment Performing Organization Information: Site ID: [place] Name: [facility] Address: [address] [address] Director: Yamileth Carcamo MD Sohail Wilson MD LABORATORY Final Result [facility] [address] [place] [address], [place] * PAP SMEAR WITH HPV (04/17/2021) 04/17/2021 [facility] Scanned SCANNING Final Resu lt from Last 3 Months or Most Recently Relevant to Health Maintenance Insurance [place] [address] Care Teams Insert Operator Relationship Specialty Start Date End Date Sohail Wilson MD [address] [place] [address] PCP - General FAMILY PRACTICE 07/12/24 Sohail Wilson MD [address] [place] [address] FAMILY PRACTICE 07/12/24
[2024-11-09 11:42] LABS: Alanine Aminotransferase 15 U/L (6-35); Albumin Level 4.4 g/dL (3.5-5.1); Alkaline Phosphatase 87 U/L (38-126); Anion Gap 6 mmol/L (4-12); Aspartate Amino Transferase 24 U/L (14-36); Bilirubin,Total 0.5 mg/dL (0.2-1.3); Blood Urea Nitrogen 13 mg/dL (7-17); Calcium 9.4 mg/dL (8.4-10.2); Carbon Dioxide 26 mmol/L (22-30); Chloride 106 mmol/L (98-107); Estimated Glomerular Filt Rate > 60; Glucose 162 mg/dL (65-110); Lipase 42 U/L (23-300); Potassium 4.3 mmol/L (3.4-5.0); Sodium 138 mmol/L (137-145); Total Protein 7.4 g/dL (6.3-8.2)
[2024-11-09 11:44] LABS: INR 1.0; Prothrombin Time 13.6 Seconds (11.1-14.7)
[2024-11-09 11:45] LABS: Partial Thromboplastin Time 28.7 Seconds (22.3-36.8)
[2024-11-09 11:53] LABS: Troponin I < 0.012 ng/mL (0.000-0.034)
--- NOTE | 2024-11-09 12:14 | ED.CHESTPAIN ---
HPI - Chest Pain General Chief Complaint: Chest Pain Stated Complaint: sent from [facility] Time Seen by Provider: 11/09/24 11:20 History of Present Illness HPI narrative: Patient is a 29-year-old female who presents to the ER with complaints of chest pain. She reports her chest pain started this morning. She describes it as tightness over her lower/mid sternal area. Patient reports she had a strong cough last night, but it has subsided. She reports the pressure in her chest is ?worsening. Patient reports her symptoms worsen with movement, although they are not reproducible. She endorses a history of type 1 diabetes, bipolar, OCD, cardiac ablation, and ADD. Patient denies any recent fevers, lower extremity edema for back pain. Related Data Home Medications ?Medication ?Instructions ?Recorded ?Confirmed ?Last Taken ?Type dextroamphetamine-amphetamine ER 20 mg PO DAILY 04/24/19 07/11/24 08/05/21 History 20 mg 24hr capsule,extend release (Adderall XR) clonazepam 0.5 mg tablet 0.5 mg PO DAILY 11/19/19 07/11/24 08/05/21 History bupropion HCl 150 mg 24 hr tablet, 150 mg PO DAILY 04/23/21 07/11/24 08/05/21 History extended release lamotrigine 100 mg tablet 100 mg PO DAILY 04/23/21 07/11/24 08/04/21 History insulin lispro 100 unit/mL 100 unit continuous subcutaneous 07/26/21 07/11/24 08/05/21 History subcutaneous solution infusion DIRECTED escitalopram oxalate 10 mg tablet 10 mg PO DIRECTED 10/21/22 07/11/24 Unknown History Allergies Allergy/AdvReac Type Severity Reaction Status Date / Time No Known Allergies Allergy Verified 10/10/24 11:23 Review of Systems Review of Systems: All systems reviewed & are unremarkable except as noted in HPI and below PMFSH Past Medical History Medical History Type 1 diabetes Bipolar 2 disorder SVT (supraventricular tachycardia) Surgical History Surgical History No pertinent past surgical history Social History Social History Smoking status: Former smoker Gender identity (if verbalized by the patient): Female Exam Narrative: GENERAL: Well appearing, well-nourished, non-toxic, in no acute distress. HEAD: Normocephalic, atraumatic. NECK: Supple. No adenopathy, no masses. RESPIRATORY: Airway patent, respirations nonlabored. Clear to auscultation bilaterally, no rales, rhonchi, wheezing. CARDIOVASCULAR: Regular rate and rhythm without murmurs, rubs, or gallops. Peripheral pulses 2+ and equal bilaterally. ABDOMINAL: Soft, nontender, nondistended, no hepatosplenomegaly. Normoactive BS. MUSCULOSKELETAL: Moves all extremities. Strength/ROM intact without gross deformities. SKIN: Warm, dry, normal color. No rashes. NEURO: A&O X3. Speech clear. Cranial nerves II-XII intact. No ataxic movements. PSYCHIATRIC: Appropriate mood and affect. Normal interaction. Course Vital Signs Vital signs: Vital Signs Temperature 36.7 C 11/09/24 11:04 Pulse Rate 85 11/09/24 11:04 Respiratory Rate 14 11/09/24 11:04 Blood Pressure 139/80 11/09/24 11:04 Pulse Oximetry 100 11/09/24 11:04 Oxygen Delivery Room Air 11/09/24 11:04 Temperature 36.7 C 11/09/24 11:04 Pulse Rate 77 11/09/24 15:58 Respiratory Rate 16 11/09/24 15:58 Blood Pressure 123/83 11/09/24 15:58 Pulse Oximetry 100 11/09/24 15:58 Oxygen Delivery Room Air 11/09/24 11:27 MDM - Chest Pain MDM Narrative Medical decision making narrative: Patient is a 29-year-old female who presents to the ER with complaints of chest pain. She reports her chest pain started this morning. She describes it as tightness over her lower/mid sternal area. Patient reports she had a strong cough last night, but it has subsided. She reports the pressure in her chest is ?worsening. Patient reports her symptoms worsen with movement, although they are not reproducible. She endorses a history of type 1 diabetes, bipolar, OCD, cardiac ablation, and ADD. Patient denies any recent fevers, lower extremity edema for back pain. Labs Ordered: CBC, CMP, TSH, PTT, INR, D-dimer, troponin, lipase Imaging Ordered: Chest x-ray Medications Ordered: GI cocktail, Toradol IV Results: Patient's CBC, coags, and CMP were unremarkable for any acute abnormalities. Patient's serial troponins were negative. Her TSH is 0.871. Patient's UDS was positive for amphetamine. Diagnosis: Atypical chest Risks: HEART score: low risk HEART Score for Major Cardiac Events from [employer] on 11/09/2024 All calculations should be rechecked by clinician prior to use RESULT SUMMARY: 2 points Low Score (0-3 points) Risk of MACE of 0.9-1.7%. INPUTS: History ?> 1 = Moderately suspicious EKG ?> 0 = Normal Age ?> 0 = <45 Risk factors ?> 1 = 1-2 risk factors Initial troponin ?> 0 = <Normal limit Patient Education/Shared MDM: Results of lab work and imaging shared with patient. She endorses no improvement of symptoms following medication administration, but is requesting to be discharged home. Patient's UDS was positive for amphetamine, which she attributes to her Adderall. She continues to denies shortness of breath. Patient strongly advised to maintain hydration status upon discharge and follow-up with their PCP as soon as possible. She will not be discharged home with any new prescriptions. Strict return precautions provided. Patient verbalized understanding and is in agreement with plan. Vital signs stable at time of discharge. All questions answered. Differential Diagnosis Differential diagnosis: Likely fracture of rib, atypical chest pain, st elevation myocardial infarction, costochondritis and other (GERD) Lab Data Attestation: I reviewed the patient's lab results. 11/09/24 11:19 11/09/24 11:19 Labs: Lab Results 11/09/24 11/09/24 11/09/24 Range/Units 11:19 11:20 13:08 WBC 6.9 (4.5-10.0) K/mm3 RBC 4.52 (4.2-5.4) M/mm3 Hgb 12.5 (12.0-15.0) g/dL Hct 38.0 (37.0-47.0) % MCV 84.1 (80-100) fl MCH 27.7 (26-34) pg MCHC 32.9 (32-36) g/dl RDW 13.2 (11.5-14.5) % Plt Count 355 (150-375) k/mm3 MPV 9.6 (7.4-10.4) fl Immature Gran % (Auto) 0.1 (0-0.5) % Neut % (Auto) 55.6 (45.5-73.1) % Lymph % (Auto) 32.7 (18.3-44.2) % [place] % (Auto) 8.4 (2.6-8.5) % Eos % (Auto) 2.5 (0-4.4) % Baso % (Auto) 0.7 (0.2-1.2) % Lymph # (Auto) 2.25 (0.9-3.2) K/mm3 [place] # (Auto) 0.6 (0.1-0.6) K/mm3 Eos # (Auto) 0.2 (0-0.3) K/mm3 Baso # (Auto) 0.1 (0.0-0.1) K/mm3 Abs Immat Gran (auto) 0.01 (0.00-0.031) K/mm3 Absolute Neuts (auto) 3.8 (1.3-6.7) K/mm3 Absolute Nucleated RBC 0.000 (0.0-0.012) K/mm3 Nucleated RBC % 0.0 (0.0-0.2) % PT 13.6 (11.1-14.7) Seconds INR 1.0 APTT 28.7 (22.3-36.8) Seconds D-Dimer 0.34 (<0.48) ug/mL Sodium 138 (137-145) mmol/L Potassium 4.3 (3.4-5.0) mmol/L Chloride 106 (98-107) mmol/L Carbon Dioxide 26 (22-30) mmol/L Anion Gap 6 (4-12) mmol/L BUN 13 D (7-17) mg/dL Creatinine 0.83 (0.7-1.0) mg/dL Estim Creat Clear Calc Not Reportable Estimated GFR > 60 (59 - ) Glucose 162 H (65-110) mg/dL Calcium 9.4 (8.4-10.2) mg/dL Total Bilirubin 0.5 (0.2-1.3) mg/dL AST 24 (14-36) U/L ALT 15 (6-35) U/L Alkaline Phosphatase 87 (38-126) U/L Troponin I < 0.012 (0.000-0.034) ng/mL Total Protein 7.4 (6.3-8.2) g/dL Albumin 4.4 (3.5-5.1) g/dL Lipase 42 (23-300) U/L TSH (Reflex) 0.871 (0.465-4.68) uIU/mL Urine Color Yellow (Yellow) Urine Appearance Clear (Clear) Urine pH 6.5 (5.0-9.0) Ur Specific [place] 1.021 (1.001-1.035) Urine Protein Negative (Negative) mg/dL Urine Glucose (UA) Negative (Negative) mg/dL Urine Ketones Trace H (Negative) mg/dL Ur Blood (Man) Negative (Negative) Urine Nitrate Negative (Negative) Urine Bilirubin Negative (Negative) Urine Urobilinogen 0.2 (<2.0) mg/dL Leukocyte Esterase Rfl Trace H (Negative) GE/UL Urine RBC 0-2 (0-2) /hpf Urine WBC 0-5 (0-3) /hpf Ur Squamous Epith Cells Occasional (Few) /hpf Urine Bacteria None seen /hpf Urine Casts 3-5 POC Urine HCG, Qual (Negative) Urine Test Negative Urine Opiates Screen Negative (Negative) Urine Methadone Screen Negative (Negative) Ur Barbiturates Screen Negative (Negative) Ur Phencyclidine Scrn Negative (Negative) Ur Amphetamine Screen Positive A (Negative) U Benzodiazepines Scrn Negative (Negative) Urine Cocaine Screen Negative (Negative) U Cannabinoids Screen Negative (Negative) 11/09/24 11/09/24 Range/Units 13:54 14:49 WBC (4.5-10.0) K/mm3 RBC (4.2-5.4) M/mm3 Hgb (12.0-15.0) g/dL Hct (37.0-47.0) % MCV (80-100) fl MCH (26-34) pg MCHC (32-36) g/dl RDW (11.5-14.5) % Plt Count (150-375) k/mm3 MPV (7.4-10.4) fl Immature Gran % (Auto) (0-0.5) % Neut % (Auto) (45.5-73.1) % Lymph % (Auto) (18.3-44.2) % [place] % (Auto) (2.6-8.5) % Eos % (Auto) (0-4.4) % Baso % (Auto) (0.2-1.2) % Lymph # (Auto) (0.9-3.2) K/mm3 [place] # (Auto) (0.1-0.6) K/mm3 Eos # (Auto) (0-0.3) K/mm3 Baso # (Auto) (0.0-0.1) K/mm3 Abs Immat Gran (auto) (0.00-0.031) K/mm3 Absolute Neuts (auto) (1.3-6.7) K/mm3 Absolute Nucleated RBC (0.0-0.012) K/mm3 Nucleated RBC % (0.0-0.2) % PT (11.1-14.7) Seconds INR APTT (22.3-36.8) Seconds D-Dimer (<0.48) ug/mL Sodium (137-145) mmol/L Potassium (3.4-5.0) mmol/L Chloride (98-107) mmol/L Carbon Dioxide (22-30) mmol/L Anion Gap (4-12) mmol/L BUN (7-17) mg/dL Creatinine (0.7-1.0) mg/dL Estim Creat Clear Calc Estimated GFR (59 - ) Glucose (65-110) mg/dL Calcium (8.4-10.2) mg/dL Total Bilirubin (0.2-1.3) mg/dL AST (14-36) U/L ALT (6-35) U/L Alkaline Phosphatase (38-126) U/L Troponin I < 0.012 (0.000-0.034) ng/mL Total Protein (6.3-8.2) g/dL Albumin (3.5-5.1) g/dL Lipase (23-300) U/L TSH (Reflex) (0.465-4.68) uIU/mL Urine Color (Yellow) Urine Appearance (Clear) Urine pH (5.0-9.0) Ur Specific [place] (1.001-1.035) Urine Protein (Negative) mg/dL Urine Glucose (UA) (Negative) mg/dL Urine Ketones (Negative) mg/dL Ur Blood (Man) (Negative) Urine Nitrate (Negative) Urine Bilirubin (Negative) Urine Urobilinogen (<2.0) mg/dL Leukocyte Esterase Rfl (Negative) GE/UL Urine RBC (0-2) /hpf Urine WBC (0-3) /hpf Ur Squamous Epith Cells (Few) /hpf Urine Bacteria /hpf Urine Casts POC Urine HCG, Qual Negative (Negative) Urine Test Urine Opiates Screen (Negative) Urine Methadone Screen (Negative) Ur Barbiturates Screen (Negative) Ur Phencyclidine Scrn (Negative) Ur Amphetamine Screen (Negative) U Benzodiazepines Scrn (Negative) Urine Cocaine Screen (Negative) U Cannabinoids Screen (Negative) Imaging Data Attestation: I personally reviewed and interpreted this imaging study as follows: Radiologist's impression: Impressions Chest X-Ray 11/09/24 12:44 IMPRESSION: 1: NO ACUTE CARDIOPULMONARY DISEASE. Discharge Plan Discharge Clinical Impression: Atypical chest pain, Costalchondritis Patient Disposition: Home Condition: Stable Instructions: Antibiotic Form, Noncardiac Chest Pain (ED) Additional Instructions: Please return to the ER with any worsening symptoms. Follow-up with primary care provider as soon as possible. Take all medications as prescribed, including regularly scheduled medications. Patient Language: Mohawk Prescriptions: No Action clonazepam 0.5 mg tablet 0.5 mg PO DAILY insulin lispro 100 unit/mL solution 100 unit continuous subcutaneous infusion DIRECTED escitalopram oxalate 10 mg tablet 10 mg PO DIRECTED clindamycin HCl 300 mg capsule 300 mg PO Q8H 10 Days Qty: 30 0RF lamotrigine 100 mg tablet 100 mg PO DAILY bupropion HCl 150 mg tablet extended release 24 hr 150 mg PO DAILY doxycycline hyclate 100 mg tablet 100 mg PO BID 7 Days Qty: 14 0RF dextroamphetamine-amphetamine [Adderall XR] 20 mg capsule,extended release 24hr 20 mg PO DAILY ibuprofen 400 mg tablet 400 mg PO Q6H PRN (Reason: pain) Qty: 30 0RF acetaminophen [Tylenol] 325 mg capsule 325 mg PO Q6H PRN (Reason: pain) Qty: 30 0RF naproxen 375 mg tablet 375 mg PO BID Qty: 14 0RF Follow-up/Referrals: Jose,Sohail [Other] Stand Alone Forms: Work/School Release IP Time of Disposition: 16:04
[2024-11-09 12:45] LABS: Thyroid Stimulating Hormone Reflex 0.871 uIU/mL (0.465-4.68)
[2024-11-09 13:22] LABS: Add Urine Microscopic? YES; Appearance Urine Clear (Clear); Glucose Urine UA Negative (Negative); Leukocyte Esterase Ur Trace LEU/UL (Negative); Nitrate Urine Negative (Negative); Specific Grav Ur 1.021 (1.001-1.035)
--- NOTE | 2024-11-09 13:48 | ECG_ITS ---
Test Date: 2024-11-09 13:52:19 Measurements Intervals [place] Rate: 73 P: 64 TN: 135 QRS: 61 QRSD: 105 T: 36 QT: 371 QTc: 410 Interpretive Statements SINUS RHYTHM WITH SINUS ARRHYTHMIA INCOMPLETE RIGHT BUNDLE BRANCH BLOCK BORDERLINE ECG Compared to ECG 11/09/2024 11:24:59 Incomplete right bundle-branch block no longer present Electronically Signed On 11-09-2024 13:58:02 CDT by Jarrett Saab D.O.
--- NOTE | 2024-11-09 13:48 | PC.NURSE ---
lab called to add on urine test.
[2024-11-09 13:50] LABS: Cannabinoid Screen Urine Negative (Negative)
[2024-11-09 13:56] LABS: BEDSIDEPREGUCG Negative (Negative)
[2024-11-09 14:04] VITALS: BP 123/74; PULSE 73; RESP 15; O2SAT 100
[2024-11-09 14:43] LABS: Pregnancy On Board Control Positive
[2024-11-09 15:21] LABS: Troponin I < 0.012 ng/mL (0.000-0.034)
[2024-11-09 15:58] VITALS: BP 123/83; PULSE 77; RESP 16; O2SAT 100
[2024-11-09] MEDS: KETOROLAC 15 MG/ML VIAL (*BKC) IV PUSH (15:58)
[2024-11-09] MEDS: BELLADONNA ALK/PHENOB ELIX 10 ML, MAG HYDROX/ALUMINUM HYD/SIMETH 30 ML, LIDOCAINE 2% VI... PO (15:59)
--- NOTE | 2024-11-09 16:04 | PC.NURSE ---
Pt. requesting to be d/c. ROBB Saraland notified.
== END 2024-11-09 16:12 | disposition home or self-care (01) ==
PROVIDERS: Emergency Medicine; Emergency Provider Registered Nurse
DX: R07.9 Chest pain, unspecified (principal); E10.9 Type 1 diabetes mellitus without complications; Z87.891 Personal history of nicotine dependence; Z79.899 Other long term (current) drug therapy; Z79.1 Long term (current) use of non-steroidal anti-inflammatories (NSAID)
CPT/HCPCS: 36415; 71046; 80053; 80307; 81001; 81025; 83690; 84443; 84484; 85025; 85380; 85610; 85730; 93005; 96374; 99284; A9270; J1885